=== PATIENT | female | born 1945 | race African-American/Black ===

== ENCOUNTER 2020-06-17 12:21 | Outpatient (REF) | payer MEDICARE, SELFPAY ==
--- NOTE | ~2020-06-17 | MM_ITS ---
EXAMINATION: MM SCREENING DIGITAL BREAST TOMOSYNTHESIS, BILATERAL CLINICAL INFORMATION: Screening. Asymptomatic. The lifetime risk of breast cancer based on the Tyrer-Cuzick Model is 2%. COMPARISON: Mammography: 03/15/2019, 11/24/2017, 10/25/2016 TECHNIQUE: Digital breast tomosynthesis is performed in both the craniocaudal and mediolateral oblique views along with computer-aided detection (CAD). Synthesized 2D images are generated from the tomosynthesis. FINDINGS: There are scattered areas of fibroglandular density (ACR BI-RADS breast composition Category b). There are no significant masses, abnormal calcifications, or other abnormalities. Probable intramammary nodes outer quadrants are stable from prior studies. There are bilateral vascular calcifications. No significant changes from prior exams. MM/MM tomosynthesis screening BI IMPRESSION: No mammographic evidence of malignancy. ASSESSMENT: BI-RADS 2: Benign RECOMMENDATION: Routine annual mammography screening. This patient's information was entered into a reminder system with a target due date for their next mammogram.
== END 2020-06-17 12:22 | disposition home or self-care (01) ==
LOC: HO.MAMMO 12:21
PROVIDERS: PCP Internal Medicine Geriatric Medicine; Visit Provider Internal Medicine Geriatric Medicine
DX: Z12.31 Encounter for screening mammogram for malignant neoplasm of breast (principal)
CPT/HCPCS: 77063; 77067

== ENCOUNTER 2020-10-11 11:09 | Outpatient (REF) | payer MEDICARE, SELFPAY ==
--- NOTE | 2020-10-12 07:53 | MHC.AU.ANO ---
Adult Audiological Evaluation Date of Visit: 10/11/20 Engineering Programmer Used: Citizen Of [place]- In Person Reason for Appointment: Audiologic evaluation due to long-standing hearing loss, right ear greater than left. Mary reports she developed perforated tympanic membrane(s) and ear infections as a child. She was fit with binaural hearing aids by Advertising Sales Consultant Maikel Ward several years ago but experienced difficulty using them. Mary is experiencing significant communication difficulties due to her significant hearing loss. Does patient feel they have a hearing loss?: Yes If Yes, Which Ear?: Both Ears Has hearing been tested previously?: Yes Previous Hearing Test Results: Results are not available for review Hearing Handicap Inventory: HHIE SCORE: 40 Based on HHIE score, patient has: Severe perceived hearing handicap Ear History: Ear Infections in Childhood: Both Ears Ear used on the phone: Left Ear History of occupational noise exposure?: No History: History: No Medical History: Medical History: Diabetes, High Blood Pressure Medication List: Quetiapine, Trulicity, Metformin, Aspirin, Docusate Sodium Otoscopy: Right Ear: Unremarkable Left Ear: Unremarkable Tympanometry: Tympanometry performed due to: To assess integrity of the middle ear system Right Ear: Non-compliant Middle Ear System (Type B) Left Ear: Non-compliant Middle Ear System (Type B) Otoacoustic Emissions Frequency Range Used: Right Ear Results: Not performed at today's visit. Left Ear Results: Not performed at today's visit. Hearing Evaluation: Transducer(s) Used: Insert Earphones Bone Conduction Method: Conventional Audiometry Stimuli Used: Pure Tones Right Ear: Description of Hearing: Severe mixed hearing loss at 250 Hz, rising to moderate loss at 1000 Hz, dropping to a severe loss at 8000 Hz Left Ear: Description of Hearing: Moderately-severe mixed hearing loss at 250 Hz, rising to mild loss at 4000 Hz, dropping to a severe loss at 8000 Hz Speech Recognition Threshold (SRT): Method Used: Monitored Live Voice Stimuli Used: Spondee Words Right Ear: 35 dB HL Left Ear: 30 dB HL Word Discrimination: Method: Recorded Lists Word Lists Used: Lista Bisil?bica (Citizen Of [place]) Right Ear: 88% at 75 dB HL Left Ear: 88% at 75 dB HL Interpretation of Results: With this asymmetric mild/moderate to severe mixed hearing loss with middle ear dysfunction, Mary is unable to understand conversational speech. Binaural hearing aids are needed to facilitate communication. Recommendations: Trial with amplification is recommended. Medical clearance from a physician is required before fitting. Hearing aid(s) will be ordered after approval is received. Audiological re-evaluation in one year. Will send a reminder card. Diagnosis: Primary Diagnosis: H90.6 Mixed Hearing Loss, Bilateral Secondary Diagnosis: H69.93 Unspecified Eustachian Tube Dysfunction, Bilateral Services Performed: Comprehensive Audiological Evaluation (CPT 99719) Tympanometry (CPT 61168) Signature: Provider: Demian Saez, CCC-A
--- NOTE | 2020-10-12 07:56 | MHC.AU.MED ---
Medical Clearance for Hearing Instrumentation Date: 10/12/20 Patient Name: Mary Levi Date of : 1945 Primary Care Provider: Referring Provider: Salomón Manzo MD We have seen your patient on 10/11/20 and have determined that they are a candidate for amplification (See accompanying report). Specifically, they would benefit from: Hearing aid use in both ears There is a statute that addresses Medical Evaluation Requirements prior to fitting a patient with a hearing aid. According to [place] statute 265 CMR:6.03(1), (a) General. Except as provided in 265 CMR 6.03(1)(b), a hearing dog trainer shall not sell a hearing aid unless the prospective user has presented to the hearing dog trainer a written statement signed by a licensed physician that states that the patient's hearing loss has been medically evaluated and the patient may be considered a candidate for a hearing aid. The medical evaluation must have taken place within the preceding six months. Please note: Due to the [place] Statute referenced above, we cannot accept a signature other than that of a licensed physician. CAMPAIGN DEVELOPER and PA signatures cannot be accepted. I am in agreement with the above recommendation. There is no medical contraindication for hearing instrumentation. Physician Signature Date Physician Name (Printed)
--- NOTE | 2020-10-12 08:00 | MHC.AU.HAS ---
Hearing Aid Evaluation Date of Visit: 10/11/20 Dovetailer Used: [place]- In Person Historical Information: Description of Hearing: Asymmetric mild to severe mixed hearing loss, right ear greater than left with bilateral middle ear dysfunction Current personal amplification information, if applicable: None Summary: Binaural hearing aids are medically necessary to facilitate communication. Rechargeable in-the-ear aids are recommended due to patient's manual dexterity difficulties. Hearing Aid Prescription: Based on the individual?s shared listening needs, communication environments, dexterity, desire for connectivity, and personal preferences, the following prescription for amplification has been made: Right ear: Pipe Bowls Paint Trimmer: qunb Model: Nicanor 1600 ITC-R Battery Size: Rechargeable Color: Black Left ear: Pipe Bowls Paint Trimmer: qunb Model: Nicanor 1600 ITC-R Battery Size: Rechargeable Color: Black Plan of Care: Patient wishes to purchase hearing aids as prescribed Action Taken/Action Needed: Earmold Impressions Taken. In HOLD drawer Prior authorization to be requested Medical Clearance to be requested from PCP/ENT Hearing Fitting to be scheduled when materials arrive Primary Diagnosis: H90.6 Mixed Hearing Loss, Bilateral Secondary Diagnosis: H69.93 Unspecified Eustachian Tube Dysfunction, Bilateral Signature: Provider: Demian Saez, CCC-A
== END 2020-10-11 11:10 | disposition home or self-care (01) ==
LOC: HO.SH 11:09
PROVIDERS: Visit Provider Internal Medicine Geriatric Medicine
DX: H91.93 Unspecified hearing loss, bilateral (principal)
CPT/HCPCS: 92557; 92567; 92591; V5275

== ENCOUNTER 2020-11-10 09:04 | Outpatient (REF) | payer MEDICARE, SELFPAY | END 2020-11-10 09:05 | disposition home or self-care (01) | LOC: HO.HAP 09:04 | PROVIDERS: Visit Provider Internal Medicine Geriatric Medicine | DX: Z13.89 Encounter for screening for other disorder (principal) ==

== ENCOUNTER 2020-12-20 09:20 | Outpatient (REF) | payer MEDICARE, SELFPAY | END 2020-12-20 09:21 | disposition home or self-care (01) | LOC: HO.HAP 09:20 | PROVIDERS: Visit Provider Internal Medicine Geriatric Medicine | DX: Z46.1 Encounter for fitting and adjustment of hearing aid (principal); H90.3 Sensorineural hearing loss, bilateral | CPT/HCPCS: V5011; V5020; V5160; V5260 ==

== ENCOUNTER 2021-01-08 09:34 | Outpatient (REF) | payer MEDICARE, SELFPAY | END 2021-01-08 09:35 | disposition home or self-care (01) | LOC: HO.HAP 09:34 | PROVIDERS: Visit Provider Internal Medicine Geriatric Medicine | DX: Z13.89 Encounter for screening for other disorder (principal) ==

== ENCOUNTER 2021-07-25 13:32 | Outpatient (REF) | payer MEDICARE, SELFPAY ==
--- NOTE | ~2021-07-25 | MM_ITS ---
EXAMINATION: MM SCREENING DIGITAL BREAST TOMOSYNTHESIS, BILATERAL CLINICAL INFORMATION: Screening. Asymptomatic. The lifetime risk of breast cancer based on the Tyrer-Cuzick Model is 2%. COMPARISON: Mammography: 06/17/2020, 03/15/2019, 11/24/2017 TECHNIQUE: Digital breast tomosynthesis is performed in both the craniocaudal and mediolateral oblique views along with computer-aided detection (CAD). Synthesized 2D images are generated from the tomosynthesis. Additional left MLO view is provided. FINDINGS: There are scattered areas of fibroglandular density (ACR BI-RADS breast composition Category b). Parenchymal pattern is similar to prior studies. Scattered fine nodularity and mammary nodes are similar to prior studies. There is no developing density or interval architectural abnormality. Scattered bilateral benign coarse and vascular calcifications are again seen. No significant changes. MM/MM tomosynthesis screening BI IMPRESSION: No mammographic evidence of malignancy. ASSESSMENT: BI-RADS 2: Benign RECOMMENDATION: Routine annual mammography screening. This patient's information was entered into a reminder system with a target due date for their next mammogram.
== END 2021-07-25 13:33 | disposition home or self-care (01) ==
LOC: HO.MAMMO 13:32
PROVIDERS: PCP Internal Medicine Geriatric Medicine; Visit Provider Internal Medicine Geriatric Medicine
DX: Z12.31 Encounter for screening mammogram for malignant neoplasm of breast (principal)
CPT/HCPCS: 77063; 77067

== ENCOUNTER 2021-11-19 09:08 | Outpatient (REF) | payer SELFPAY | END 2021-11-19 09:09 | disposition home or self-care (01) | LOC: HO.HAP 09:08 | PROVIDERS: Visit Provider Internal Medicine Geriatric Medicine | DX: Z13.89 Encounter for screening for other disorder (principal) ==

== ENCOUNTER 2021-11-30 12:04 | Outpatient (REF) | payer OTHER, SELFPAY ==
--- NOTE | ~2021-11-30 | XR_ITS ---
EXAMINATION: XR KNEE, RIGHT CLINICAL INFORMATION: Pain. COMPARISON: Radiographs dated 02/28/2019. TECHNIQUE: Frontal, lateral and axial views of the right knee are submitted. FINDINGS: Bony alignment and mineralization are normal. There is very mild asymmetric narrowing of the medial joint space compartment. The lateral and patellofemoral joint space compartments are well-maintained. There is very mild tricompartment peripheral osteophyte formation. No fracture or dislocation is seen. There is a small right knee joint effusion. A small enthesophyte arises from the upper pole of the patella, at the quadriceps tendon insertion. There is no foreign body. XR/XR knee RT 3V IMPRESSION: 1. 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 2. There is a small right knee joint effusion.
== END 2021-11-30 12:05 | disposition home or self-care (01) ==
LOC: HO.XRAY 12:04
PROVIDERS: PCP Internal Medicine Geriatric Medicine; Visit Provider Internal Medicine Geriatric Medicine
DX: M25.561 Pain in right knee (principal)
CPT/HCPCS: 73562

== ENCOUNTER 2021-12-06 14:16 | Outpatient (REF) | payer SELFPAY | END 2021-12-06 14:17 | disposition home or self-care (01) | LOC: HO.HAP 14:16 | PROVIDERS: Visit Provider Internal Medicine Geriatric Medicine | DX: Z13.89 Encounter for screening for other disorder (principal) ==

== ENCOUNTER 2021-12-24 07:46 | Outpatient (REF) | payer OTHER, SELFPAY ==
--- NOTE | ~2021-12-24 | CT_ITS ---
EXAMINATION: CT HEAD WITHOUT CONTRAST CLINICAL INFORMATION: Amnesia COMPARISON: Previous head CT December 2015 TECHNIQUE: Contiguous axial imaging was performed from the skull base to vertex without intravenous administration of contrast. This CT examination was performed using dose optimization techniques as appropriate, variously including the following: *Automated exposure control *Adjustment of mA and/or kV according to patient size (this includes techniques or standardized protocols for targeted exams where dose is matched to indication/reason for exam; i.e. extremities or head) *Use of iterative reconstruction technique DLP: 689 mGy-cm FINDINGS: There is no evidence of acute intracranial hemorrhage or territorial infarction. No abnormal mass effect or midline shift is seen. Avery to white matter differentiation is well preserved. No extra-axial fluid collections are identified. The ventricles are normal in size. There is no abnormal attenuation within the brain parenchyma. The osseous structures and soft tissues are normal. There is soft tissue opacification of the bilateral mastoid air cells that is unchanged. There is some soft tissue opacification of the left middle ear that is increased from 2016 exam. The visualized portions of the paranasal sinuses are well aerated. CT/CT head/brain wo con IMPRESSION: No acute intracranial findings. Soft tissue opacification of the bilateral mastoid air cells and left middle ear.
== END 2021-12-24 07:47 | disposition home or self-care (01) ==
LOC: HO.CT 07:46
PROVIDERS: PCP Internal Medicine Geriatric Medicine; Visit Provider Internal Medicine Geriatric Medicine
DX: R41.3 Other amnesia (principal)
CPT/HCPCS: 70450

== ENCOUNTER → 2022-01-22 09:01 | Outpatient (BNVA) | payer OTHER, SELFPAY | PROVIDERS: PCP Internal Medicine Geriatric Medicine; Visit Provider Physician Assistant | DX: M17.11 Unilateral primary osteoarthritis, right knee (principal); E11.9 Type 2 diabetes mellitus without complications | CPT/HCPCS: 20610; 99212; J1020 ==

== ENCOUNTER 2022-06-21 11:46 | Emergency (ER) | payer OTHER, SELFPAY ==
[2022-06-21 12:10] VITALS: BP 106/58; PULSE 78; RESP 18; TEMP 37.3; O2SAT 96; BMI 33.5
--- NOTE | 2022-06-21 12:11 | ED_ITS ---
HPI - Female Genitourinary General Chief complaint: Skin/Abscess/Foreign Body <LAZARO Hendrix - Last Filed: 06/21/22 12:12> Stated complaint: ? Abscess Vag Area <LAZARO Hendrix - Last Filed: 06/21/22 12:12> Time Seen by Provider: 06/21/22 15:03 <LAZARO Hendrix - Last Filed: 06/21/22 12:12> Source: patient and family <LAZARO Gonzáles - Last Filed: 06/21/22 16:08> Mode of arrival: ambulatory <LAZARO Gonzáles Last Filed: 06/21/22 16:08> History of Present Illness HPI Narrative: 76-year-old female with a past medical history of diabetes, hypertension, presenting to ED complaining of cyst to right groin/vaginal area x2 days. Reports area is increasing in size and becoming increasingly painful. Reports subjective fever yesterday. Denies drainage from area, fever/chills, dysuria / hematuria, abdominal pain, rectal pain <LAZARO Gonzáles Last Filed: 06/21/22 16:08> Related Data Home medications: Home Medications Medication Instructions Recorded Confirmed acetaminophen 500 mg tablet 500 mg PO Q8H PRN pain 01/22/22 amlodipine 10 mg tablet 10 mg PO BEDTIME 01/22/22 aspirin 81 mg tablet,delayed 81 mg PO QAM 01/22/22 release cholecalciferol (vitamin D3) 25 25 mcg PO QAM 01/22/22 mcg (1,000 unit) tablet dulaglutide 4.5 mg/0.5 mL mg subcut QWEEK 01/22/22 subcutaneous pen injector (Trulicity) metformin 500 mg tablet,extended 1,000 mg PO QAM 01/22/22 release 24 hr paroxetine HCl 20 mg tablet 20 mg PO QAM 01/22/22 quetiapine 25 mg tablet 0 mg PO 01/22/22 Previous Rx's Medication Instructions Recorded cephalexin 500 mg capsule 500 mg PO QID 7 days #28 caps 06/21/22 doxycycline hyclate 100 mg tablet 100 mg PO BID 7 days #14 tabs 06/21/22 <LAZARO Hendrix Last Filed: 06/21/22 12:12> Allergies/Adverse reactions: Allergies Allergy/AdvReac Type Severity Reaction Status Date / Time Crustaceans Allergy Severe ANAPHYLAXIS Uncoded 01/27/20 16:52 <LAZARO Hendrix Last Filed: 06/21/22 12:12> Review of Systems Review of Systems: Constitutional: No Fever, No Chills ENT/Mouth: No Ear Pain, No Nasal Congestion, No sore throat, No Rhinorrhea, No Swallowing Difficulty Cardiovascular: No Chest Pain, No SOB Respiratory: No Cough, No Sputum Gastrointestinal: No Nausea, No Vomiting, No Diarrhea, No Constipation, No Abdominal pain Genitourinary: No Dysuria, No Urinary Frequency, No Hematuria, No Urinary Incontinence/retention Musculoskeletal: No joint pain, No Myalgias, No Joint Swelling Skin: +Skin Lesions, No rash Neuro: No Weakness <LAZARO Gonzáles Last Filed: 06/21/22 16:08> Yes all other systems are reviewed and are negative <LAZARO Gonzáles Last Filed: 06/21/22 16:08> Constitutional: Constitutional: Reports as per HPI <LAZARO Gonzáles - Last Filed: 06/21/22 16:08> [facility] Past Medical History Attestation statement: The following information was validated with the patient. <LAZARO Gonzáles Last Filed: 06/21/22 16:08> Medical History: Medical History Diabetes Hypertension <LAZARO Hendrix Last Filed: 06/21/22 12:12> Social History Social History: Social History Patient Tobacco Use Status: Never used Tobacco Advance Directives: No Advance Directives Information Provided: Yes <LAZARO Hendrix Last Filed: 06/21/22 12:12> Physical Exam Vital Signs: Vital Signs: Last Vital Signs Temp 99.2 F 06/21/22 12:10 Pulse 78 06/21/22 12:10 Resp 18 06/21/22 12:10 BP 106/58 L 06/21/22 12:10 Pulse Ox 96 06/21/22 12:10 O2 Del Method 06/21/22 12:10 BMI result Body Mass Index 33.5 <LAZARO Hendrix - Last Filed: 06/21/22 12:12> Vital Signs: Last Vital Signs Temp 99.2 F 06/21/22 12:10 Pulse 78 06/21/22 12:10 Resp 18 06/21/22 12:10 BP 106/58 L 06/21/22 12:10 Pulse Ox 96 06/21/22 12:10 O2 Del Method 06/21/22 12:10 BMI result Body Mass Index 33.5 <LAZARO Gonzáles - Last Filed: 06/21/22 16:08> Const: General: cooperative, healthy appearing and no acute distress <LAZRAO Gonzáles - Last Filed: 06/21/22 16:08> Orientation/consciousness: patient oriented x3 <LAZARO Gonzáles - Last Filed: 06/21/22 16:08> Limitations: no limitations <LAZARO Gonzáles - Last Filed: 06/21/22 16:08> HEENT: Head: Yes normal to inspection and Yes atraumatic <LAZARO Gonzáles - Last Filed: 06/21/22 16:08> Ears: hearing grossly normal bilaterally <LAZARO Gonzáles - Last Filed: 06/21/22 16:08> General nose exam: Normal external nose present <LAZARO Gonzáles - Last Filed: 06/21/22 16:08> Face and sinus: Yes normal facial exam <LAZARO Gonzáles - Last Filed: 06/21/22 16:08> Eyes: General: appearance normal, both eyes and all related structures <LAZARO Gonzáles - Last Filed: 06/21/22 16:08> EOM: EOMs intact bilaterally <LAZARO Gonzáles - Last Filed: 06/21/22 16:08> Neck: Neck: Yes normal visual inspection and Yes no meningeal signs <LAZARO Gonzáles - Last Filed: 06/21/22 16:08> Resp: Effort & Inspection: normal respiratory effort and no respiratory distress <LAZARO Gonzáles - Last Filed: 06/21/22 16:08> Cardio: Rate: regular rate <LAZARO Gonzáles - Last Filed: 06/21/22 16:08> GI: Inspection: Yes normal to inspection <LAZARO Gonzáles - Last Filed: 06/21/22 16:08> Palpation (GI): Soft to palpation, nontender, no guarding and not rigid <LAZARO Gonzáles - Last Filed: 06/21/22 16:08> Skin: Other: +indurated abscess with central fluctuance noted to R groin/inguinal area. No erythema/warmth or steaking <LAZARO Gonzáles - Last Filed: 06/21/22 16:08> Rashes: no rashes <LAZARO Gonzáles - Last Filed: 06/21/22 16:08> Wounds: no wounds <LAZARO Gonzáles - Last Filed: 06/21/22 16:08> Neuro: General: patient oriented x3, tone normal and no meningeal signs <LAZARO Gonzáles - Last Filed: 06/21/22 16:08> Gait exam (Neuro): Normal gait present <LAZARO Gonzáles - Last Filed: 06/21/22 16:08> Extrem: General: Yes normal to inspection <LAZARO Gonzáles - Last Filed: 06/21/22 16:08> Course Course Course Narrative: RME-12:15PM - 76yoF presenting to the ER with complaints of vaginal abscess that she noticed 2 days ago. Reports she has never had this in the past. Reports subjective fevers, chills. Denies any measured fevers, nausea/vomiting, urinary symptoms or any other symptoms complaints or concerns at the time. Plan: UA ordered at this time. Patient will be sent to [facility] for further evaluation and treatment. <Sol Russell PA - Last Filed: 06/21/22 12:12> RME-12:15PM - 76yoF presenting to the ER with complaints of vaginal abscess that she noticed 2 days ago. Reports she has never had this in the past. Reports subjective fevers, chills. Denies any measured fevers, nausea/vomiting, urinary symptoms or any other symptoms complaints or concerns at the time. Plan: UA ordered at this time. Patient will be sent to [facility] for further evaluation and treatment. -UA negative <LAZARO Gonzáles - Last Filed: 06/21/22 16:08> Medications Administered Discontinued Medications Generic Name Dose Route Start Last Admin Trade Name Freq PRN Reason Stop Dose Admin Lidocaine HCl 5 ml 06/21/22 15:26 06/21/22 15:34 Lidocaine Hcl 1 % Mpf 5 Ml Vial INFILTRATI 06/21/22 15:27 5 ml ONCE ONE Administration <LAZARO Hendrix - Last Filed: 06/21/22 12:12> Medications Administered Discontinued Medications Generic Name Dose Route Start Last Admin Trade Name Freq PRN Reason Stop Dose Admin Lidocaine HCl 5 ml 06/21/22 15:26 06/21/22 15:34 Lidocaine Hcl 1 % Mpf 5 Ml Vial INFILTRATI 06/21/22 15:27 5 ml ONCE ONE Administration <LAZARO Gonzáles - Last Filed: 06/21/22 16:08> Medical Decision Making Medical Decision Making [facility] Narrative: 76-year-old female with a past medical history of diabetes, hypertension, presenting to ED complaining of cyst to right groin/vaginal area x2 days. on exam vital signs stable, NAD, nontoxic appearing, indurated and fluctuant abscess noted to right groin/ inguinal area. No surrounding cellulitis/ warmth or evidence of Quentin's gangrene. No perianal or vaginal involvement plan: I &D Results discussed with patient including worrisome signs and symptoms and strict return precautions, and when to return to the emergency department. They verbalized understanding and feel safe for discharge at this time. <LAZARO Gonzáles - Last Filed: 06/21/22 16:08> Differential Diagnosis Differential Diagnoses: The differential diagnosis associated with the presentation includes <LAZARO Gonzáles - Last Filed: 06/21/22 16:08> as above <LAZARO Gonzáles - Last Filed: 06/21/22 16:08> Lab Data [facility] Lab Attestation statement: I reviewed the patient's lab results. <LAZARO Gonzáles - Last Filed: 06/21/22 16:08> Labs: Lab Results 06/21/22 06/21/22 Range/Units 12:19 15:45 POC Glucose 268 H (60-115) mg/dL Urine Color Dark Yellow Urine Appearance Clear Urine pH 6.0 (5.0-9.0) Ur Specific [address] >= 1.030 H (1.005-1.025) Urine Protein 30 (1+) H (Neg-Trace) mg/dL Urine Glucose (UA) 500 H (Negative) mg/dL Urine Ketones Trace (Negative) mg/dL Urine Blood Negative (Negative) Urine Nitrite Negative (Negative) Ur Leukocyte Esterase Trace H (Negative) Urine RBC 3-5 H (0-2) /HPF Urine WBC 0-5 (0-5) /HPF Ur Squamous Epith Cells 3-5 (0-2) /HPF Urine Bacteria None Seen (None Seen) Hyaline Casts 0-2 (0-2) /LPF <LAZARO Hendrix Last Filed: 06/21/22 12:12> Lab Results 06/21/22 06/21/22 Range/Units 12:19 15:45 POC Glucose 268 H (60-115) mg/dL Urine Color Dark Yellow Urine Appearance Clear Urine pH 6.0 (5.0-9.0) Ur Specific [address] >= 1.030 H (1.005-1.025) Urine Protein 30 (1+) H (Neg-Trace) mg/dL Urine Glucose (UA) 500 H (Negative) mg/dL Urine Ketones Trace (Negative) mg/dL Urine Blood Negative (Negative) Urine Nitrite Negative (Negative) Ur Leukocyte Esterase Trace H (Negative) Urine RBC 3-5 H (0-2) /HPF Urine WBC 0-5 (0-5) /HPF Ur Squamous Epith Cells 3-5 (0-2) /HPF Urine Bacteria None Seen (None Seen) Hyaline Casts 0-2 (0-2) /LPF <LAZARO Gonzáles Last Filed: 06/21/22 16:08> Prescription Management I considered prescription management with: Antibiotic <LAZARO Gonzáles Last Filed: 06/21/22 16:08> Procedures Abscess I/D Site: other <LAZARO Gonzáles Last Filed: 06/21/22 16:08> Side (if applicable): right <LAZARO Gonzáles Last Filed: 06/21/22 16:08> Local Anesthetic: lidocaine 1% <LAZARO Gonzáles Last Filed: 06/21/22 16:08> Amount of anesthesia used (mL): 4 <LAZARO Gonzáles Last Filed: 06/21/22 16:08> Technique: incised with blade <LAZARO Gonzáles Last Filed: 06/21/22 16:08> Sent for culture/gram staining?: No <LAZARO Gonzáles Last Filed: 06/21/22 16:08> Packing used?: iodoform <LAZARO Gonzáles Last Filed: 06/21/22 16:08> Discharge Plan Discharge Clinical Impression: Abscess <LAZARO Hendrix Last Filed: 06/21/22 12:12> Patient Disposition: Home, Self-Care <LAZARO Hendrix Last Filed: 06/21/22 12:12> Instructions: Abscess (ED), Abscess Follow-up (ED) <LAZARO Hendrix Last Filed: 06/21/22 12:12> Additional Instructions: your abscess was opened and drained in the ED today. Packing was placed, please return in 2 days for packing removal/wound recheck if area begins to worsen, become more inflamed/ red or you fever/inability to urinate or have a bowel movement return to the emergency department Keflex and doxycycline or antibiotics please take as prescribed. galo absceso fue abierto y drenado en el servicio de urgencias hoy. Se coloc? el empaque, devu?lvalo en 2 d?as para retirar el empaque/volver a revisar la herida si el ?nba comienza a empeorar, se inflama m?s/enrojece o tiene fiebre/incapacidad para orinar o defecar, regrese al departamento de emergencias Keflex y doxiciclina o antibi?ticos, t?melos seg?n lo prescrito. <LAZARO Hendrix Last Filed: 06/21/22 12:12> Prescriptions: New cephalexin 500 mg capsule 500 mg PO QID 7 Days Qty: 28 0RF doxycycline hyclate 100 mg tablet 100 mg PO BID 7 Days Qty: 14 0RF No Action Trulicity 4.5 mg/0.5 mL pen injector subcut QWEEK cholecalciferol (vitamin D3) 25 mcg (1,000 unit) tablet 25 mcg PO QAM amlodipine 10 mg tablet 10 mg PO BEDTIME quetiapine 25 mg tablet 0 mg PO paroxetine HCl 20 mg tablet 20 mg PO QAM metformin 500 mg tablet extended release 24 hr 1,000 mg PO QAM aspirin 81 mg tablet,delayed release (DR/EC) 81 mg PO QAM acetaminophen 500 mg tablet 500 mg PO Q8H PRN (Reason: pain) <LAZARO Hendrix - Last Filed: 06/21/22 12:12> Referrals: ED Physician,Jose [Emergency Provider] - 2 days ( 2 days for packing removal) Name,MD Salomón [Primary Care Provider] - 2 days ( For packing removal) <LAZARO Hendrix - Last Filed: 06/21/22 12:12> Print Language: Com[place] <LAZARO Hendrix - Last Filed: 06/21/22 12:12>
[2022-06-21 12:34] LABS: Appearance Urine Clear; Color Urine Dark Yellow; Glucose Urine UA 500 mg/dL (Negative); Leukocyte Esterase Urine Trace (Negative); Nitrite Urine Negative (Negative); Specific Gravity - Urine >= 1.030 (1.005-1.025); UMIC TRIGGER UACC YES; Urine Blood Negative (Negative); Urine Ketones Trace mg/dL (Negative); Urine Protein 30 (1+) mg/dL (Neg-Trace)
[2022-06-21 12:39] LABS: Bacteria Urine None Seen (None Seen); Hyaline Casts Urine 0-2 /LPF (0-2); WBC Urine 0-5 /HPF (0-5)
[2022-06-21] MEDS: Lidocaine HCl 1 % MPF 5 ML VIAL INFILTRATI (15:34)
[2022-06-21 15:57] LABS: Glucose, Whole Blood 268 mg/dL (60-115)
== END 2022-06-21 16:13 | disposition home or self-care (01) ==
PROVIDERS: Physician Assistant Medical; Emergency Provider Emergency Medicine; PCP Internal Medicine Geriatric Medicine
DX: L02.214 Cutaneous abscess of groin (principal)
CPT/HCPCS: 10060; 81001; 82947; 99282; 99284

== ENCOUNTER 2022-06-23 12:57 | Emergency (ER) | payer OTHER, SELFPAY ==
[2022-06-23 13:03] VITALS: BP 151/53; PULSE 69; RESP 18; TEMP 36.6; O2SAT 98; BMI 33.6
--- NOTE | 2022-06-23 13:03 | ED.RECABL ---
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 Patient states that she had an abscess incised and drained with packing placed and she is here to get packing removed. Patient denies any dizziness, lightheadedness, abdominal pain, nausea, vomiting, fever, chills, blurry vision, double vision, loss of vision, chest pain, difficulty breathing, shortness of breath, back pain, night sweats, pain with urination, increased urinary frequency, increased urinary urgency, blood in her urine or stool, syncope or a near syncopal episode, recent trauma or falls, bowel incontinence, bladder incontinence, bowel retention, bladder retention, or any other complaints at this time. <LAZARO Garcia - Last Filed: 06/23/22 16:08> MD complaint: wound re-check <LAZARO Garcia - Last Filed: 06/23/22 16:08> Initial visit (ago): day(s) <LAZARO Garcia Last Filed: 06/23/22 16:08> Initial visit for: abscess <LAZARO Garcia Last Filed: 06/23/22 16:08> Associated symptoms: none <LAZARO Garcia Last Filed: 06/23/22 16:08> Related Data Home Medications: Home Medications Medication Instructions Recorded Confirmed acetaminophen 500 mg tablet 500 mg PO Q8H PRN pain 01/22/22 amlodipine 10 mg tablet 10 mg PO BEDTIME 01/22/22 aspirin 81 mg tablet,delayed 81 mg PO QAM 01/22/22 release cholecalciferol (vitamin D3) 25 25 mcg PO QAM 01/22/22 mcg (1,000 unit) tablet dulaglutide 4.5 mg/0.5 mL mg subcut QWEEK 01/22/22 subcutaneous pen injector (Trulicity) metformin 500 mg tablet,extended 1,000 mg PO QAM 01/22/22 release 24 hr paroxetine HCl 20 mg tablet 20 mg PO QAM 01/22/22 quetiapine 25 mg tablet 0 mg PO 01/22/22 Previous Rx's Medication Instructions Recorded cephalexin 500 mg capsule 500 mg PO QID 7 days #28 caps 06/21/22 doxycycline hyclate 100 mg tablet 100 mg PO BID 7 days #14 tabs 06/21/22 <LAZARO Hednrix - Last Filed: 06/23/22 13:04> Allergies/Adverse Reactions: Allergies Allergy/AdvReac Type Severity Reaction Status Date / Time Crustaceans Allergy Severe ANAPHYLAXIS Uncoded 06/23/22 13:03 <LAZARO Hendrix - Last Filed: 06/23/22 13:04> Review of Systems Constitutional: Constitutional: Reports no additional constitutional complaints, Denies chills, Denies fever(s) and Denies night sweats <LAZARO Garcia - Last Filed: 06/23/22 16:08> Eyes: Eyes: Reports no additional eye complaints, Denies blurry vision, Denies change in vision, Denies diplopia, Denies eye discharge, Denies loss of vision and Denies eye pain <LAZARO Garcia Last Filed: 06/23/22 16:08> ENT: Denies dizziness <LAZARO Garcia Last Filed: 06/23/22 16:08> Cardiovascular: Cardiovascular: Reports no additional cardiovascular complaints, Denies chest pain, Denies lightheadedness, Denies Loss of Consciousness and Denies dyspnea <LAZARO Garcia Last Filed: 06/23/22 16:08> Respiratory: Respiratory: Reports no additional respiratory complaints and Denies dyspnea <LAZARO Garcia Last Filed: 06/23/22 16:08> Gastrointestinal: Gastrointestinal: Reports no additional gastrointestinal complaints, Denies abdominal pain, Denies melena, Denies hematochezia, Denies change in bowel habits and Denies change in stool character <LAZARO Garcia - Last Filed: 06/23/22 16:08> Genitourinary: Genitourinary: Denies hematuria, Denies urinary frequency, Denies dysuria, Denies urinary incontinence, Denies urinary hesitancy and Denies urinary urgency <LAZARO Garcia - Last Filed: 06/23/22 16:08> Comments: abscess with packing present in the right groin <LAZARO Garcia - Last Filed: 06/23/22 16:08> Musculoskeletal: Musculoskeletal: Reports no additional musculoskeletal complaints, Denies numbness and Denies tingling <LAZARO Garcia - Last Filed: 06/23/22 16:08> Neurologic: Denies dizziness, Denies loss of vision, Denies numbness and Denies tingling <LAZARO Garcia - Last Filed: 06/23/22 16:08> Psychiatric: Psychiatric: Reports no additional psychiatric complaints <LAZARO Garcia - Last Filed: 06/23/22 16:08> Endocrine: Endocrine: Reports no additional endocrine complaints <LAZARO Garcia - Last Filed: 06/23/22 16:08> Hematologic/Lymphatic: Hematologic/Lymphatic: Reports no additional hematologic/lymphatic complaints <LAZARO Garcia - Last Filed: 06/23/22 16:08> Allergic/Immunologic: Allergic/Immunologic: Reports no additional allergic/immunologic complaints <LAZARO Garcia - Last Filed: 06/23/22 16:08> [facility] Past Medical History Attestation statement: The following information was validated with the patient. <LAZARO Garcia - Last Filed: 06/23/22 16:08> Source: old records reviewed and nursing notes reviewed <LAZARO Garcia - Last Filed: 06/23/22 16:08> Medical History: Medical History Diabetes Hypertension <LAZARO Hendrix - Last Filed: 06/23/22 13:04> Social History Social History: Social History Patient Tobacco Use Status: Never used Tobacco Advance Directives: No Advance Directives Information Provided: Yes <LAZARO Hendrix - Last Filed: 06/23/22 13:04> Physical Exam Vital Signs: Vital Signs: Last Vital Signs Temp 98 F 06/23/22 13:03 Pulse 69 06/23/22 13:03 Resp 18 06/23/22 13:03 BP 151/53 H 06/23/22 13:03 Pulse Ox 98 06/23/22 13:03 O2 Del Method 06/23/22 13:03 BMI result Body Mass Index 33.6 <LAZARO Hendrix - Last Filed: 06/23/22 13:04> Vital Signs: Last Vital Signs Temp 98 F 06/23/22 13:03 Pulse 69 06/23/22 13:03 Resp 18 06/23/22 13:03 BP 151/53 H 06/23/22 13:03 Pulse Ox 98 06/23/22 13:03 O2 Del Method 06/23/22 13:03 BMI result Body Mass Index 33.6 <LAZARO Garcia - Last Filed: 06/23/22 16:08> Const: General: cooperative, no acute distress, alert and awake <LAZARO Garcia - Last Filed: 06/23/22 16:08> Nutritional Appearance: well nourished <LAZARO Garcia - Last Filed: 06/23/22 16:08> Orientation/consciousness: patient oriented x3 <LAZARO Garcia Last Filed: 06/23/22 16:08> Limitations: no limitations <LAZARO Garcia Last Filed: 06/23/22 16:08> HEENT: Head: Yes normal to inspection and Yes atraumatic <LAZARO Garcia - Last Filed: 06/23/22 16:08> Ears: hearing grossly normal bilaterally and external ears normal <LAZARO Garcia Last Filed: 06/23/22 16:08> General nose exam: Normal external nose present, no nasal discharge noted and no epistaxis <LAZARO Garcia Last Filed: 06/23/22 16:08> Face and sinus: Yes normal facial exam, No abrasion and No laceration <LAZARO Garcia Last Filed: 06/23/22 16:08> Mouth: Normal oral and palatal mucosa present, no drooling and no muffled voice <Ana Lilly [place] - Last Filed: 06/23/22 16:08> Eyes: General: appearance normal, both eyes and all related structures <Ana Lilly [facility] Last Filed: 06/23/22 16:08> Periorbital: periorbital findings normal <Ana Lilly SC - Last Filed: 06/23/22 16:08> Eyelids: Yes eyelids normal <Ana Lilly SC - Last Filed: 06/23/22 16:08> Conjunctivae: conjunctivae normal <Ana Lilly SC - Last Filed: 06/23/22 16:08> Pupils: Equal, round and reactive pupils present <Ana Lilly [place] - Last Filed: 06/23/22 16:08> EOM: EOMs intact bilaterally <Ana Lilly SC - Last Filed: 06/23/22 16:08> Neck: Neck: Yes normal visual inspection, Yes full ROM and Yes no lymphadenopathy <Ana Lilly SC - Last Filed: 06/23/22 16:08> Chest: Chest palpation & inspection: normal inspection of the chest <Ana Lilly SC - Last Filed: 06/23/22 16:08> Resp: Effort & Inspection: normal respiratory effort and able to speak in complete sentences <Ana Lilly [facility] Last Filed: 06/23/22 16:08> Auscultation: clear to auscultation bilaterally <Ana Lilly SC - Last Filed: 06/23/22 16:08> Cardio: Rate: regular rate <Ana Lilly SC - Last Filed: 06/23/22 16:08> Rhythm: regular rhythm <Ana Lilly SC - Last Filed: 06/23/22 16:08> GI: Inspection: Yes normal to inspection <Ana Lilly SC - Last Filed: 06/23/22 16:08> : Other: abscess with packing in place to the right groin <Ana Baechanning SC - Last Filed: 06/23/22 16:08> Neuro: General: patient oriented x3 and moves all extremities <LAZARO Garcia - Last Filed: 06/23/22 16:08> Cranial nerves: Yes Equal, round and reactive pupils present <LAZARO Garcia - Last Filed: 06/23/22 16:08> Cognition (Neuro): normal cognition <LAZARO Garcia - Last Filed: 06/23/22 16:08> Motor exam (neuro): 5/5 motor strength present throughout <LAZARO Garcia - Last Filed: 06/23/22 16:08> Sensory Exam: Normal double simultaneous stimulation for sensation <LAZARO Garcia - Last Filed: 06/23/22 16:08> Coordination: dxwerz-wy-cvoy test normal <LAZARO Garcia - Last Filed: 06/23/22 16:08> Extrem: General: Yes normal to inspection, Yes full ROM and Yes capillary refill normal <LAZARO Garcia - Last Filed: 06/23/22 16:08> Psych: Appearance: grossly normal <LAZARO Garcia - Last Filed: 06/23/22 16:08> Mental Status: mental status grossly normal <LAZAOR Garcia - Last Filed: 06/23/22 16:08> Affect: normal affect <LAZARO Garcia - Last Filed: 06/23/22 16:08> Attitude: cooperative <LAZARO Garcia - Last Filed: 06/23/22 16:08> Thought process: Normal thought process present <LAZARO Garcia - Last Filed: 06/23/22 16:08> Thought content: Normal thought content present <LAZARO Garcia - Last Filed: 06/23/22 16:08> Insight: Good insight present (Psych) <LAZARO Garcia - Last Filed: 06/23/22 16:08> Course Course Course Narrative: RMShannan 13PM - 76yoF who is Dutch-speaking although granddaughter at bedside interpreting presenting with complaints of packing removal after she had the abscess to the right groin area that she had I&D by care on 06/21/2022. Denies any new symptoms related to this. Exam deferred to EM provider. <LAZARO Hendrix - Last Filed: 06/23/22 13:04> Medical Decision Making Medical Decision Making MDM Narrative: Patient is a 76 year old assigned female at with a history of DM presenting to the emergency department today for a packing removal. Patient's physical exam showed a previously opened abscess in the right groin with packing present. I explained my physical exam findings to the patient and the patient's granddaughter. I answered all questions asked by the patient and the patient's granddaughter. Patient's packing was removed, without incident. I stressed the importance of the patient taking her medication as prescribed. I stressed the importance of the patient following up with her primary care provider and a general surgeon. I stressed the importance of the patient returning to the emergency department immediately if her symptoms were to worsen or if she were to develop any dizziness, shortness of breath, difficulty breathing, chest pain, blurry vision, loss of vision, nausea, vomiting, abdominal pain, fever, chills, back pain, or any other complaints. Patient and the patient's granddaughter verbalized agreement and understanding with this treatment plan and discharge. <LAZARO Garcia - Last Filed: 06/23/22 16:08> Differential Diagnosis Differential Diagnoses: The differential diagnosis associated with the presentation includes <LAZARO Garcia - Last Filed: 06/23/22 16:08> packing removal <LAZARO Garcia - Last Filed: 06/23/22 16:08> Independent Historian Clinical information obtained from an independent historian. History obtained from or confirmed by: Other (patient's granddaughter) <LAZARO Garcia Last Filed: 06/23/22 16:08> Procedures Procedure Narrative Procedure Narrative: Packing removed from previously opened right groin abscess. <LAZARO Garcia Last Filed: 06/23/22 16:08> Discharge Plan Discharge Clinical Impression: Abscess <LAZARO Hendrix Last Filed: 06/23/22 13:04> Patient Disposition: Home, Self-Care <LAZARO Hendrix Last Filed: 06/23/22 13:04> Instructions: Abscess Follow-up (ED) <LAZARO Hendrix - Last Filed: 06/23/22 13:04> Additional Instructions: Follow up with your primary care provider. Return to the emergency department immediately if your symptoms worsen or if you develop any dizziness, shortness of breath, difficulty breathing, chest pain, blurry vision, loss of vision, nausea, vomiting, abdominal pain, fever, chills, back pain, or any other complaints. Eros un seguimiento con galo proveedor de atenci?n primaria. Regrese a la daniel de emergencias de inmediato si marilyn s?ntomas empeoran o si presenta mareos, dificultad para respirar, dolor de pecho, visi?n borrosa, p?rdida de la visi?n, n?useas, v?mitos, dolor abdominal, fiebre, escalofr?os, dolor de espalda o cualquier otras quejas. <LAZARO Hendrix - Last Filed: 06/23/22 13:04> Prescriptions: No Action cephalexin 500 mg capsule 500 mg PO QID 7 Days Qty: 28 0RF doxycycline hyclate 100 mg tablet 100 mg PO BID 7 Days Qty: 14 0RF Trulicity 4.5 mg/0.5 mL pen injector subcut QWEEK cholecalciferol (vitamin D3) 25 mcg (1,000 unit) tablet 25 mcg PO QAM amlodipine 10 mg tablet 10 mg PO BEDTIME quetiapine 25 mg tablet 0 mg PO paroxetine HCl 20 mg tablet 20 mg PO QAM metformin 500 mg tablet extended release 24 hr 1,000 mg PO QAM aspirin 81 mg tablet,delayed release (DR/EC) 81 mg PO QAM acetaminophen 500 mg tablet 500 mg PO Q8H PRN (Reason: pain) <LAZARO Hendrix - Last Filed: 06/23/22 13:04> Referrals: [facility] [place] General Surgeons [Provider Group] (Call to establish and follow up with a general surgeon. Llame para establecer y hacer un seguimiento con un cirujano general.) Name,MD Salomón [Primary Care Provider] - <LAZARO Hendrix - Last Filed: 06/23/22 13:04> Interventions: ED Discharge Assessment Last Done: 06/23/22 14:24 <LAZARO Hendrix - Last Filed: 06/23/22 13:04> Discharge Date/Time: 06/23/22 14:24 <LAZARO Hendrix - Last Filed: 06/23/22 13:04> Print Language: Dutch <LAZARO Hendrix - Last Filed: 06/23/22 13:04>
== END 2022-06-23 14:24 | disposition home or self-care (01) ==
PROVIDERS: Emergency Provider Emergency Medicine Emergency Medical Services; PCP Internal Medicine Geriatric Medicine
DX: Z48.01 Encounter for change or removal of surgical wound dressing (principal); Z79.899 Other long term (current) drug therapy
CPT/HCPCS: 99282

== ENCOUNTER 2022-07-31 13:16 | Outpatient (REF) | payer OTHER, SELFPAY ==
--- NOTE | ~2022-07-31 | MM_ITS ---
EXAMINATION: MM SCREENING DIGITAL BREAST TOMOSYNTHESIS, BILATERAL CLINICAL INFORMATION: Screening. Asymptomatic. The lifetime risk of breast cancer based on the Tyrer-Cuzick Model is 2%. COMPARISON: Mammography: 07/25/2021, 06/17/2020, 03/15/2019 TECHNIQUE: Digital breast tomosynthesis is performed in both the craniocaudal and mediolateral oblique views along with computer-aided detection (CAD). Synthesized 2D images are generated from the tomosynthesis. FINDINGS: There are scattered areas of fibroglandular density (ACR BI-RADS breast composition Category b). There are no significant masses, abnormal calcifications, or other abnormalities. Parenchymal pattern is similar to prior studies. There is no developing density or architectural abnormality. Scattered minor nodular asymmetries are stable. There are bilateral coarse and vascular calcifications again seen. The axilla and skin contours are unremarkable. No significant changes. MM/MM tomosynthesis screening BI IMPRESSION: No mammographic evidence of malignancy. ASSESSMENT: BI-RADS 2: Benign RECOMMENDATION: Routine annual mammography screening. This patient's information was entered into a reminder system with a target due date for their next mammogram.
== END 2022-07-31 13:17 | disposition home or self-care (01) ==
LOC: HO.MAMMO 13:16
PROVIDERS: PCP Internal Medicine Geriatric Medicine; Visit Provider Internal Medicine Geriatric Medicine
DX: Z12.31 Encounter for screening mammogram for malignant neoplasm of breast (principal)
CPT/HCPCS: 77063; 77067

== ENCOUNTER 2022-10-18 13:28 | Outpatient (REF) | payer OTHER, SELFPAY ==
--- NOTE | ~2022-10-18 | MM_ITS ---
EXAMINATION: MM DIAGNOSTIC DIGITAL BREAST TOMOSYNTHESIS, LEFT US DIAGNOSTIC ULTRASOUND BREAST, LEFT CLINICAL INFORMATION: 77-year-old with palpable area mid upper outer left breast noted by patient for several weeks. The lifetime risk of breast cancer based on the Tyrer-Cuzick Model is 2%. COMPARISON: Mammography: 07/31/2022, 07/25/2021, 06/17/2020, 03/15/2019 TECHNIQUE: Digital breast tomosynthesis is performed in both the craniocaudal and mediolateral oblique views along with computer-aided detection (CAD). Synthesized 2D images are generated from the tomosynthesis. Ultrasound left breast is targeted to the area of clinical concern using grayscale imaging and color Doppler without and with harmonics. Patient is able to point to the area of concern at time of imaging. FINDINGS: There are scattered areas of fibroglandular density (ACR BI-RADS breast composition Category b). Parenchymal pattern is similar to prior studies and there is no interval significant mass or architectural abnormality or developing density. There is scattered nodularity similar to prior exams. There is an incidental intramammary node mid upper outer left breast which has been present on prior studies. There are scattered benign round and vascular calcifications. The axilla and skin contours are unremarkable. Ultrasound left breast demonstrates benign intramammary node upper outer quadrant mid depth corresponding to the area of palpable concern measuring 0.8 cm in longest dimension. There is normal cristobal architecture and color flow. This corresponds to the stable intramammary node on mammography. There is no other cystic or solid lesion or architectural abnormality in the area of palpable concern. Results are discussed with the patient at time of visit, using an concrete smoother. Patient notes intentional weight loss from prior mammography. The palpable node may be more perceptible given the intentional weight loss. There is no significant changes from prior exams. MM/MM tomosynthesis diagnostic LT IMPRESSION: -No mammographic evidence of malignancy. No significant changes from prior studies. -Palpable concern upper outer left breast corresponds to an old stable intramammary node. ASSESSMENT: BI-RADS 2: Benign RECOMMENDATION: Routine annual mammography screening. This patient's information was entered into a reminder system with a target due date for their next mammogram.
== END 2022-10-18 13:29 | disposition home or self-care (01) ==
LOC: HO.MAMMO 13:28
PROVIDERS: PCP Internal Medicine Geriatric Medicine; Visit Provider Internal Medicine Geriatric Medicine
DX: N63.21 Unspecified lump in the left breast, upper outer quadrant (principal)
CPT/HCPCS: 76642; 77061; 77065

== ENCOUNTER 2023-01-08 16:52 | Emergency (ER) | payer OTHER, SELFPAY ==
[2023-01-08 17:06] VITALS: BP 157/50; PULSE 69; RESP 16; TEMP 36.9; O2SAT 97; BMI 35.4
--- NOTE | 2023-01-08 17:06 | ED.SKABFB ---
HPI - Skin/Abscess/Foreign Bdy General Chief complaint: Allergic Reaction Stated complaint: allergic reaction, itchy Time Seen by Provider: 01/08/23 17:17 Source: patient and family Mode of arrival: ambulatory Limitations: no limitations History of Present Illness HPI narrative: 77 yo female with history of IDDM, HTN here with complaints of itching rash to neck, upper extremities, face x 2 weeks from unknown cause. On 01/03 started zrytec and triamcinolone 0.1% topical as well as benadryl PRN. Continued symptoms so started prednisone taper 01/06. Also using calamine lotion/topical Benadryl with continued symptoms. No new medications, foods, detergents, products. No recent travel or sick contact. No diff breathing, vomiting, diarrhea, abdominal cramping. Today blood sugars running high despite taking her normal diabetic medications. She takes lantus 22units BID, trulicity once weekly, metformin 1000mg BID. Waiting to see an border machine operator outpatient Related Data Home Medications Medication Instructions Recorded Confirmed acetaminophen 500 mg tablet 500 mg PO Q8H PRN pain 01/22/22 amlodipine 10 mg tablet 10 mg PO BEDTIME 01/22/22 aspirin 81 mg tablet,delayed 81 mg PO QAM 01/22/22 release cholecalciferol (vitamin D3) 25 25 mcg PO QAM 01/22/22 mcg (1,000 unit) tablet dulaglutide 4.5 mg/0.5 mL mg subcut QWEEK 01/22/22 subcutaneous pen injector (Trulicity) metformin 500 mg tablet,extended 1,000 mg PO QAM 01/22/22 release 24 hr paroxetine HCl 20 mg tablet 20 mg PO QAM 01/22/22 quetiapine 25 mg tablet 0 mg PO 01/22/22 Previous Rx's Medication Instructions Recorded cephalexin 500 mg capsule 500 mg PO QID 7 days #28 caps 06/21/22 doxycycline hyclate 100 mg tablet 100 mg PO BID 7 days #14 tabs 06/21/22 cetirizine 10 mg tablet 10 mg PO DAILY PRN allergy 01/08/23 symptoms #30 tabs hydroxyzine HCl 25 mg tablet 25 mg PO QID PRN itching #30 tabs 01/08/23 triamcinolone acetonide 0.1 % 1 appl topical TID #80 grams 08/30/23 topical ointment Allergies Allergy/AdvReac Type Severity Reaction Status Date / Time Crustaceans Allergy Severe ANAPHYLAXIS Uncoded 01/08/23 17:05 Review of Systems Review of Systems: Yes all other systems are reviewed and are negative Constitutional: Constitutional: Reports no additional constitutional complaints, Denies body ache(s), Denies chills, Denies fever(s), Denies headache(s) and Denies weakness Eyes: Eyes: Reports no additional eye complaints and Denies change in vision ENT: Reports system reviewed and no additional complaints, except as documented, Denies dizziness, Denies headache(s), Denies nasal congestion, Denies nasal discharge and Denies neck pain Cardiovascular: Cardiovascular: Reports no additional cardiovascular complaints, Denies chest pain, Denies leg edema and Denies dyspnea Respiratory: Respiratory: Reports no additional respiratory complaints, Denies cough and Denies dyspnea Gastrointestinal: Gastrointestinal: Reports no additional gastrointestinal complaints, Denies abdominal pain, Denies diarrhea, Denies nausea and Denies vomiting Genitourinary: Genitourinary: Reports no additional female genitourinary complaints and Denies urinary incontinence Musculoskeletal: Musculoskeletal: Reports no additional musculoskeletal complaints, Denies back pain, Denies arthralgias, Denies joint swelling, Denies neck pain, Denies numbness and Denies tingling Integumentary/Breasts: Skin/Breast: Reports system reviewed and no additional complaints, except as docu and Reports rash Neurologic: Reports system reviewed and no additional complaints, except as documented, Denies Abnormal speech present, Denies dizziness, Denies headache(s), Denies numbness, Denies tingling and Denies weakness [facility] Past Medical History Attestation statement: The following information was validated with the patient. Source: old records reviewed and nursing notes reviewed Medical History Diabetes Hypertension Social History Social History Alcohol intake: never Patient Tobacco Use Status: Never used Tobacco Smoked in Last 30 Days: No Use of substances other than those prescribed or required for medical reasons: No Advance Directives: No Advance Directives Information Provided: No Physical Exam Vital Signs: Vital Signs: Last Vital Signs Temp 98.4 F 01/08/23 17:06 Pulse 69 01/08/23 17:06 Resp 16 01/08/23 17:06 BP 157/50 H 01/08/23 17:06 Pulse Ox 97 01/08/23 17:06 O2 Del Method Room Air 01/08/23 17:06 BMI result Body Mass Index 35.4 Const: General: cooperative, healthy appearing, comfortable and no acute distress Orientation/consciousness: patient oriented x3 Limitations: no limitations HEENT: Head: Yes normal to inspection Ears: hearing grossly normal bilaterally General nose exam: Normal external nose present Face and sinus: Yes normal facial exam Mouth: Normal oral and palatal mucosa present Throat: Yes posterior oropharynx normal Eyes: General: appearance normal, both eyes and all related structures Pupils: Equal, round and reactive pupils present Neck: Other: To the right side of the neck there is an urticarial rash with scaling noted, similar lesions noted over cheeks and trunk. extremities including hand/feet seem to be spared Neck: Yes normal visual inspection Chest: Chest palpation & inspection: normal inspection of the chest Resp: Effort & Inspection: normal respiratory effort Auscultation: clear to auscultation bilaterally Cardio: Rate: regular rate Rhythm: regular rhythm Peripheral pulses: Peripheral pulses 2+ throughout GI: Inspection: Yes normal to inspection Palpation (GI): Soft to palpation and nontender Auscultation: normal bowel sounds Back/Spine/Pelvis: Thoracic/Lumbar Spine: thoracic and lumbar spine normal to inspection Skin: General skin exam: no rashes or lesions noted Neuro: General: patient oriented x3, no focal motor deficits and normal sensation to monofilament Cranial nerves: Yes Equal, round and reactive pupils present Cognition (Neuro): normal cognition Speech: No Abnormal speech present Gait exam (Neuro): Normal gait present Motor exam (neuro): 5/5 motor strength present throughout Extrem: General: Yes normal to inspection Course Course Course Narrative: This is an RME: Additional HPI, ROS, PE not included below will be deferred to primary provider. This is a 55-[id number]-female presenting to the ER with complaints of itchy rash on the right side of her neck x 2 weeks. No new soaps, lotions, detergents. has been on prednisone for the last several days without relief. Also reporting that her blood glucose levels are not being read on the glucometer because it just says high . Plan: Labs, POC Reevaluation(s) Reevaluation #1: 1900-Labs show hyperglycemia with no evidence of DKA. Patient received IVF, IV insulin. Plan to repeat BG after receiving IV meds. If this improves send patient home with adjustments to her meds including lantus so that she may continue prednisone. Sign out to Klarissa WILLIS pending above. Reevaluation #2: Sign-out given to me pending repeat blood glucose level. I administered 2 L of IV fluids given point care was still in the 400s. Repeat blood glucose now 271. Patient stable for discharge. Encouraged to monitor blood glucose levels very closely given prednisone will increase blood glucose level. Patient understands and agrees with plan. Time: 21:08 Medications Administered Generic Name Dose Route Start Last Admin Trade Name Freq PRN Reason Stop Dose Admin Sodium Chloride 1,000 mls @ 999 mls/hr 01/08/23 20:15 01/08/23 20:59 Ns IV 01/08/23 21:15 Infused .Q1H1M CYNTHIA Infusion Discontinued Medications Generic Name Dose Route Start Last Admin Trade Name Freq PRN Reason Stop Dose Admin Hydrocortisone 1 appl 01/08/23 20:31 01/08/23 20:59 Hydrocortisone 1 % Cream 28.35 Gm Tube TOPICAL 01/08/23 20:32 1 appl ONCE ONE Administration Protocol Sodium Chloride 1,000 mls @ 999 mls/hr 01/08/23 18:11 01/08/23 20:08 Ns IV 01/08/23 19:11 Infused .Q1H1M STA Infusion Insulin Human Regular 7 unit 01/08/23 18:14 01/08/23 19:12 Insulin Regular, Human 100 Unit/Ml 3 Ml Vial 0.1 unit/kg (7 unit) 01/08/23 18:15 7 unit IVPUSH Administration ONCE ONE Medical Decision Making Medical Decision Making MDM Narrative: 77 yo female with history of IDDM, HTN here with complaints of itching rash to neck, upper extremities, face x 2 weeks from unknown cause. On 01/03 started zrytec and triamcinolone 0.1% topical as well as benadryl PRN. Continued symptoms so started prednisone taper 01/06. Also using calamine lotion/topical Benadryl with continued symptoms. No new medications, foods, detergents, products. No recent travel or sick contact. No diff breathing, vomiting, diarrhea, abdominal cramping. Today blood sugars running high despite taking her normal diabetic medications. She takes lantus 22units BID, trulicity once weekly, metformin 1000mg BID. Waiting to see an border machine operator outpatient To the right side of the neck there is an urticarial rash with scaling noted, similar lesions noted over cheeks and trunk. extremities including hand/feet seem to be spared likely dermatitis, may also benefit from seeing derm outpatient, no airway involvement, patient most bothered by the itching POC high Will obtain labs, if BG high will give IVF and insulin Differential Diagnosis Differential Diagnoses: The differential diagnosis associated with the presentation includes allergic reaction hyperglycemia secondary to medication Admission/Observation Consideration of admission/observation: Escalation of care including admission/observation considered BG trending down with IVF, insulin with no evidence of DKA Lab Data MDM Lab Attestation statement: I reviewed the patient's lab results. hyperglycemia with no dka 01/08/23 17:29 01/08/23 17:29 Labs: Lab Results 01/08/23 01/08/23 01/08/23 Range/Units 17:29 17:29 18:25 WBC 9.3 (4.8-10.8) X10*3/uL RBC 3.90 L (4.20-5.50) X10*6/uL Hgb 11.1 L (12.0-16.0) g/dl Hct 32.8 L (37.0-47.0) % MCV 84.1 (80.0-98.0) fL MCH 28.5 (27.0-33.0) pg MCHC 33.8 (31.0-35.0) g/dl RDW 13.2 (11.0-16.0) % Plt Count 196 (160-400) X10*3/uL MPV 9.8 (9.4-12.3) fL Immature Gran % (Auto) 0.5 H (0.0-0.4) % Neut % (Auto) 85.9 H (45-73) % Lymph % (Auto) 9.3 L (20-40) % Wake % (Auto) 3.8 (2-11) % Eos % (Auto) 0.3 (0-4) % Baso % (Auto) 0.2 (0-2) % Lymph # (Auto) 0.9 L (1.2-4.9) X10*3/uL [place] # (Auto) 0.4 (0.1-1.2) X10*3/uL Eos # (Auto) 0.0 (0.0-0.4) X10*3/uL Baso # (Auto) 0.0 (0.0-0.2) X10*3/uL Abs Immat Gran (auto) 0.05 H (0.00-0.03) X10*3/uL Absolute Neuts (auto) 7.9 (2.0-8.3) x10*3/uL Absolute Nucleated RBC 0.000 (0.0-0.012) X10*3/uL Nucleated RBC % (auto) 0.0 (0.0-0.2) /100WBC VBG pH (7.32-7.43) VBG pCO2 mmHg VBG pO2 mmHg VBG HCO3 (22-26) mmol/L VBG O2 Saturation % VBG Base Excess mmol/L Sodium 131 L (135-145) mmol/L Potassium 4.9 (3.3-5.1) mmol/L Chloride 93 L (96-108) mmol/L Carbon Dioxide 25 (22-29) mmol/L Anion Gap 18 (12-20) BUN 25 H (9-16) mg/dL Creatinine 1.28 (0.5-1.4) mg/dL Estim Creat Clear Calc 26.1 Estimated GFR 40 POC Glucose (60-115) mg/dL Random Glucose 547 H* (60-115) mg/dL Calcium 9.5 (8.4-10.2) mg/dL Total Bilirubin 0.4 (0.0-1.0) mg/dL Direct Bilirubin 0.2 (0.0-0.5) mg/dL AST 29 (5-31) U/L ALT 23 (0-31) U/L Alkaline Phosphatase 65 (39-117) U/L Total Protein 7.4 (6.5-8.0) g/dL Albumin 4.2 (3.5-5.0) g/dL Beta-Hydroxybutyrate 0.20 (0.02-0.27) mmol/L 01/08/23 01/08/23 01/08/23 Range/Units 19:32 20:00 20:16 WBC (4.8-10.8) X10*3/uL RBC (4.20-5.50) X10*6/uL Hgb (12.0-16.0) g/dl Hct (37.0-47.0) % MCV (80.0-98.0) fL MCH (27.0-33.0) pg MCHC (31.0-35.0) g/dl RDW (11.0-16.0) % Plt Count (160-400) X10*3/uL MPV (9.4-12.3) fL Immature Gran % (Auto) (0.0-0.4) % Neut % (Auto) (45-73) % Lymph % (Auto) (20-40) % [place] % (Auto) (2-11) % Eos % (Auto) (0-4) % Baso % (Auto) (0-2) % Lymph # (Auto) (1.2-4.9) X10*3/uL [place] # (Auto) (0.1-1.2) X10*3/uL Eos # (Auto) (0.0-0.4) X10*3/uL Baso # (Auto) (0.0-0.2) X10*3/uL Abs Immat Gran (auto) (0.00-0.03) X10*3/uL Absolute Neuts (auto) (2.0-8.3) x10*3/uL Absolute Nucleated RBC (0.0-0.012) X10*3/uL Nucleated RBC % (auto) (0.0-0.2) /100WBC VBG pH 7.38 (7.32-7.43) VBG pCO2 45 mmHg VBG pO2 69 mmHg VBG HCO3 26 (22-26) mmol/L VBG O2 Saturation 85.0 % VBG Base Excess 1.4 mmol/L Sodium (135-145) mmol/L Potassium (3.3-5.1) mmol/L Chloride (96-108) mmol/L Carbon Dioxide (22-29) mmol/L Anion Gap (12-20) BUN (9-16) mg/dL Creatinine (0.5-1.4) mg/dL Estim Creat Clear Calc Estimated GFR POC Glucose 408 H* 304 H (60-115) mg/dL Random Glucose (60-115) mg/dL Calcium (8.4-10.2) mg/dL Total Bilirubin (0.0-1.0) mg/dL Direct Bilirubin (0.0-0.5) mg/dL AST (5-31) U/L ALT (0-31) U/L Alkaline Phosphatase (39-117) U/L Total Protein (6.5-8.0) g/dL Albumin (3.5-5.0) g/dL Beta-Hydroxybutyrate (0.02-0.27) mmol/L 01/08/23 Range/Units 20:57 WBC (4.8-10.8) X10*3/uL RBC (4.20-5.50) X10*6/uL Hgb (12.0-16.0) g/dl Hct (37.0-47.0) % MCV (80.0-98.0) fL MCH (27.0-33.0) pg MCHC (31.0-35.0) g/dl RDW (11.0-16.0) % Plt Count (160-400) X10*3/uL MPV (9.4-12.3) fL Immature Gran % (Auto) (0.0-0.4) % Neut % (Auto) (45-73) % Lymph % (Auto) (20-40) % Wake % (Auto) (2-11) % Eos % (Auto) (0-4) % Baso % (Auto) (0-2) % Lymph # (Auto) (1.2-4.9) X10*3/uL [place] # (Auto) (0.1-1.2) X10*3/uL Eos # (Auto) (0.0-0.4) X10*3/uL Baso # (Auto) (0.0-0.2) X10*3/uL Abs Immat Gran (auto) (0.00-0.03) X10*3/uL Absolute Neuts (auto) (2.0-8.3) x10*3/uL Absolute Nucleated RBC (0.0-0.012) X10*3/uL Nucleated RBC % (auto) (0.0-0.2) /100WBC VBG pH (7.32-7.43) VBG pCO2 mmHg VBG pO2 mmHg VBG HCO3 (22-26) mmol/L VBG O2 Saturation % VBG Base Excess mmol/L Sodium (135-145) mmol/L Potassium (3.3-5.1) mmol/L Chloride (96-108) mmol/L Carbon Dioxide (22-29) mmol/L Anion Gap (12-20) BUN (9-16) mg/dL Creatinine (0.5-1.4) mg/dL Estim Creat Clear Calc Estimated GFR POC Glucose 271 H (60-115) mg/dL Random Glucose (60-115) mg/dL Calcium (8.4-10.2) mg/dL Total Bilirubin (0.0-1.0) mg/dL Direct Bilirubin (0.0-0.5) mg/dL AST (5-31) U/L ALT (0-31) U/L Alkaline Phosphatase (39-117) U/L Total Protein (6.5-8.0) g/dL Albumin (3.5-5.0) g/dL Beta-Hydroxybutyrate (0.02-0.27) mmol/L Discharge Plan Discharge Clinical Impression: Acute hyperglycemia, Dermatitis Patient Disposition: Home, Self-Care Instructions: Diabetic Hyperglycemia (ED), Dermatitis (ED) Additional Instructions: Continue the prednisone We are increasing your dose of cetirizine We are also changing your dose and frequency of topical steroid You may continue calamine and topical benadryl Take the hydroxyzine for itching Increase your dose of lantus to 30 units twice daily while on the prednisone Continue with plan to follow-up with an border machine operator, and ask for a referral to dermatology Prescriptions: New cetirizine 10 mg tablet 10 mg PO DAILY PRN (Reason: allergy symptoms) Qty: 30 0RF triamcinolone acetonide 0.1 % ointment 1 appl topical TID Qty: 80 0RF hydroxyzine HCl 25 mg tablet 25 mg PO QID PRN (Reason: itching) Qty: 30 0RF No Action cephalexin 500 mg capsule 500 mg PO QID 7 Days Qty: 28 0RF doxycycline hyclate 100 mg tablet 100 mg PO BID 7 Days Qty: 14 0RF Trulicity 4.5 mg/0.5 mL pen injector subcut QWEEK cholecalciferol (vitamin D3) 25 mcg (1,000 unit) tablet 25 mcg PO QAM amlodipine 10 mg tablet 10 mg PO BEDTIME quetiapine 25 mg tablet 0 mg PO paroxetine HCl 20 mg tablet 20 mg PO QAM metformin 500 mg tablet extended release 24 hr 1,000 mg PO QAM aspirin 81 mg tablet,delayed release (DR/EC) 81 mg PO QAM acetaminophen 500 mg tablet 500 mg PO Q8H PRN (Reason: pain) Referrals: Name,MD Salomón [Primary Care Provider] - 1 week
[2023-01-08 17:33] LABS: MANUAL DIFF FLAG NO
[2023-01-08 17:36] LABS: Basophils Percent Auto 0.2 % (0-2); Eosinophils Percent Auto 0.3 % (0-4); Hematocrit 32.8 % (37.0-47.0); Hemoglobin 11.1 g/dl (12.0-16.0); Imm Gran Abs Auto 0.05 X10*3/uL (0.00-0.03); Imm Gran Pct Auto 0.5 % (0.0-0.4); Lymphocytes Absolute Auto 0.9 X10*3/uL (1.2-4.9); Lymphocytes Percent Auto 9.3 % (20-40); Mean Corpuscular HGB Conc 33.8 g/dl (31.0-35.0); Mean Corpuscular Hemoglobin 28.5 pg (27.0-33.0); Mean Corpuscular Volume 84.1 fL (80.0-98.0); Mean Platelet Volume 9.8 fL (9.4-12.3); Monocytes Absolute Auto 0.4 X10*3/uL (0.1-1.2); Monocytes Percent Auto 3.8 % (2-11); Neutrophils Absolute Auto 7.9 x10*3/uL (2.0-8.3); Neutrophils Percent Auto 85.9 % (45-73); Platelet Count 196 X10*3/uL (160-400); Red Cell Distribution Width 13.2 % (11.0-16.0); White Blood Count 9.3 X10*3/uL (4.8-10.8)
[2023-01-08 18:12] LABS: Alanine Aminotransferase 23 U/L (0-31); Albumin Level 4.2 g/dL (3.5-5.0); Alkaline Phosphatase 65 U/L (39-117); Anion Gap 18 (12-20); Aspartate Amino Transferase 29 U/L (5-31); Bilirubin Direct 0.2 mg/dL (0.0-0.5); Bilirubin Total 0.4 mg/dL (0.0-1.0); Blood Urea Nitrogen 25 mg/dL (9-16); Calcium 9.5 mg/dL (8.4-10.2); Carbon Dioxide 25 mmol/L (22-29); Chloride 93 mmol/L (96-108); Creatinine Clr Calc Pharmacy 26.1; Estimated Glomerular Filt Rate 40; Glucose Random 547 mg/dL (60-115); Potassium 4.9 mmol/L (3.3-5.1); Sodium 131 mmol/L (135-145); Total Protein 7.4 g/dL (6.5-8.0)
[2023-01-08] MEDS: 0.9 % Sodium Chloride 1,000 ML 999 ML IV ×2 (19:03→20:07)
[2023-01-08] MEDS: Insulin Regular, Human 100 UNIT/ML 3 ML VIAL 7 UNIT IVPUSH (19:12)
--- NOTE | 2023-01-08 19:16 | PC.NURSE ---
20g IV placed in left hand- VBG sent 1l NS infusing per order
[2023-01-08 19:36] LABS: Glucose, Whole Blood 408 mg/dL (60-115)
[2023-01-08 20:06] LABS: VBG Base Excess 1.4 mmol/L; VBG HCO3 26 mmol/L (22-26); VBG pCO2 45 mmHg; VBG pH 7.38 (7.32-7.43); VBG pO2 69 mmHg
[2023-01-08 20:19] LABS: Glucose, Whole Blood 304 mg/dL (60-115)
[2023-01-08 20:21] LABS: Venous Blood Gas Refer to POC result
[2023-01-08] MEDS: Hydrocortisone 1 % Cream 28.35 GM TUBE 1 APPL TOPICAL (20:59)
[2023-01-08 21:01] LABS: Glucose, Whole Blood 271 mg/dL (60-115)
== END 2023-01-08 21:15 | disposition home or self-care (01) ==
PROVIDERS: Nurse Practitioner Family; Physician Assistant Medical; Emergency Provider Emergency Medicine Emergency Medical Services; PCP Internal Medicine Geriatric Medicine
DX: E11.65 Type 2 diabetes mellitus with hyperglycemia (principal); L30.9 Dermatitis, unspecified; I10 Essential (primary) hypertension; Z79.84 Long term (current) use of oral hypoglycemic drugs; Z79.85 Long-term (current) use of injectable non-insulin antidiabetic drugs; Z79.899 Other long term (current) drug therapy; Z79.82 Long term (current) use of aspirin
CPT/HCPCS: 36415; 80048; 80076; 82010; 82803; 82947; 85025; 96361; 96374; 99284

== ENCOUNTER 2023-01-10 16:37 | Emergency (ER) | payer OTHER, SELFPAY ==
[2023-01-10 16:40] VITALS: BP 156/51; PULSE 63; RESP 18; TEMP 36.7; O2SAT 99; BMI 35.0
--- NOTE | 2023-01-10 16:43 | ED.SKABFB ---
HPI - Skin/Abscess/Foreign Bdy General Chief complaint: General Medical Stated complaint: Rash Time Seen by Provider: 01/10/23 21:20 Source: patient and family Mode of arrival: ambulatory Limitations: no limitations History of Present Illness HPI narrative: 69-year-old female presents with rash. The rash is distributed on the face and chest. Symptoms started 3 weeks ago. The symptoms are severe. They are so severe pruritus. There is no difficulty swallowing or breathing. No reports of angioedema. Previous treatments included prednisone, oral antihistamines and topical medications. There has been no significant improvement. No new medications, foods or any other known allergens. Patient has not seen an accounting manager cpa. Related Data Home Medications Medication Instructions Recorded Confirmed acetaminophen 500 mg tablet 500 mg PO Q8H PRN pain 01/22/22 amlodipine 10 mg tablet 10 mg PO BEDTIME 01/22/22 aspirin 81 mg tablet,delayed 81 mg PO QAM 01/22/22 release cholecalciferol (vitamin D3) 25 25 mcg PO QAM 01/22/22 mcg (1,000 unit) tablet dulaglutide 4.5 mg/0.5 mL mg subcut QWEEK 01/22/22 subcutaneous pen injector (Trulicity) metformin 500 mg tablet,extended 1,000 mg PO QAM 01/22/22 release 24 hr paroxetine HCl 20 mg tablet 20 mg PO QAM 01/22/22 quetiapine 25 mg tablet 0 mg PO 01/22/22 Previous Rx's Medication Instructions Recorded cephalexin 500 mg capsule 500 mg PO QID 7 days #28 caps 06/21/22 doxycycline hyclate 100 mg tablet 100 mg PO BID 7 days #14 tabs 06/21/22 cetirizine 10 mg tablet 10 mg PO DAILY PRN allergy 01/08/23 symptoms #30 tabs hydroxyzine HCl 25 mg tablet 25 mg PO QID PRN itching #30 tabs 01/08/23 triamcinolone acetonide 0.1 % 1 appl topical TID #80 grams 01/08/23 topical ointment pimecrolimus 1 % topical cream 1 appl topical DAILY #60 grams 01/10/23 prednisone 20 mg tablet 20 mg PO DAILY #7 tabs 01/10/23 Allergies Allergy/AdvReac Type Severity Reaction Status Date / Time Crustaceans Allergy Severe ANAPHYLAXIS Uncoded 01/08/23 17:05 Review of Systems Review of Systems: CONSTITUTIONAL: Denies weight loss, fever and chills. HEENT: Denies changes in vision and hearing. RESPIRATORY: Denies SOB and cough. CV: Denies palpitations no CP. GI: Denies abdominal pain, nausea, vomiting and diarrhea. : Denies dysuria and urinary frequency. MSK: Denies myalgia and joint pain. SKIN: + rash and pruritus. NEUROLOGICAL: Denies headache and syncope. PSYCHIATRIC: Denies recent changes in mood. Denies anxiety and depression. All other ROS are negative unless in HPI PMFSH Past Medical History Medical History Diabetes Hypertension Social History Social History Alcohol intake: never Patient Tobacco Use Status: Never used Tobacco Smoked in Last 30 Days: No Use of substances other than those prescribed or required for medical reasons: No Advance Directives: No Advance Directives Information Provided: No Physical Exam Vital Signs: Vital Signs: Last Vital Signs Temp 98.0 F 01/10/23 20:54 Pulse 57 01/10/23 20:54 Resp 16 01/10/23 20:54 BP 166/49 H 01/10/23 20:54 Pulse Ox 98 01/10/23 20:54 O2 Del Method Room Air 01/10/23 20:54 BMI result Body Mass Index 35.0 GEN: Well developed, no acute distress, alert, oriented HEENT: Normocephalic, atraumatic, normal external ears, nose appears normal, no angioedema Eyes: Normal to appearance Neck: Supple, no lymphadenopathy Respiratory: Talks in complete sentences, no respiratory distress Extremities: No clubbing cyanosis or edema Neurologic: No focal neurologic deficits, cranial nerves 2-12 intact, gait normal Skin: Raised erythematous rash on face and upper chest Course Course Course Narrative: This is an RME: Additional HPI, ROS, PE not included below will be deferred to primary provider. This is a [id number]-female, with a hx of IDDM, HTN, presenting to the ER with complaints of itching rash to neck, upper extremities, face x 2 weeks from unknown cause. On 01/03 started zrytec and triamcinolone 0.1% topical as well as benadryl PRN. Continued symptoms so started prednisone taper 01/06. Also using calamine lotion/topical Benadryl with continued symptoms. No new medications, foods, detergents, products. No recent travel or sick contact. She was seen on 01/08/2023, found to be hyperglycemic, had several liters of IV fluids and was told to continue prednisone. Daughter did not continue prednisone on friday. Rash now spread to her face. No CP, SOB. Plan: Repeat labs Medical Decision Making Medical Decision Making [facility] Narrative: Patient presents with an allergic rash to her face and chest. Will recommend oral steroids, topical medications, oral antihistamines. There is no clear etiology of her symptoms. There is no evidence of angioedema. We discussed strategies for increasing patient's Lantus for better blood sugar control. Lab Data 01/10/23 17:10 01/10/23 17:10 Labs: Lab Results 01/10/23 01/10/23 01/10/23 Range/Units 17:10 17:10 20:56 WBC 6.0 (4.8-10.8) X10*3/uL RBC 4.07 L (4.20-5.50) X10*6/uL Hgb 11.9 L (12.0-16.0) g/dl Hct 35.1 L (37.0-47.0) % MCV 86.2 (80.0-98.0) fL MCH 29.2 (27.0-33.0) pg MCHC 33.9 (31.0-35.0) g/dl RDW 13.6 (11.0-16.0) % Plt Count 198 (160-400) X10*3/uL MPV 9.5 (9.4-12.3) fL Immature Gran % (Auto) 0.3 (0.0-0.4) % Neut % (Auto) 56.5 (45-73) % Lymph % (Auto) 25.2 (20-40) % [place] % (Auto) 9.6 (2-11) % Eos % (Auto) 8.1 H (0-4) % Baso % (Auto) 0.3 (0-2) % Lymph # (Auto) 1.5 (1.2-4.9) X10*3/uL [place] # (Auto) 0.6 (0.1-1.2) X10*3/uL Eos # (Auto) 0.5 H (0.0-0.4) X10*3/uL Baso # (Auto) 0.0 (0.0-0.2) X10*3/uL Abs Immat Gran (auto) 0.02 (0.00-0.03) X10*3/uL Absolute Neuts (auto) 3.4 (2.0-8.3) x10*3/uL Absolute Nucleated RBC 0.000 (0.0-0.012) X10*3/uL Nucleated RBC % (auto) 0.0 (0.0-0.2) /100WBC Sodium 136 (135-145) mmol/L Potassium 4.2 (3.3-5.1) mmol/L Chloride 99 (96-108) mmol/L Carbon Dioxide 25 (22-29) mmol/L Anion Gap 16 (12-20) BUN 17 H (9-16) mg/dL Creatinine 0.98 (0.5-1.4) mg/dL Estim Creat Clear Calc 33.8 Estimated GFR 55 POC Glucose 274 H (60-115) mg/dL Random Glucose 309 H (60-115) mg/dL Calcium 9.0 (8.4-10.2) mg/dL Total Bilirubin 0.3 (0.0-1.0) mg/dL Direct Bilirubin 0.1 (0.0-0.5) mg/dL AST 47 H (5-31) U/L ALT 38 H (0-31) U/L Alkaline Phosphatase 61 (39-117) U/L Total Protein 7.1 (6.5-8.0) g/dL Albumin 4.0 (3.5-5.0) g/dL Discharge Plan Discharge Clinical Impression: Allergic reaction, Acute hyperglycemia Patient Disposition: Home, Self-Care Instructions: Diabetic Hyperglycemia (ED), General Allergic Reaction (ED), Allergy Testing (ED) Additional Instructions: Increase Lantus to 26 units Prescriptions: New pimecrolimus 1 % cream 1 appl topical DAILY Qty: 60 0RF prednisone 20 mg tablet 20 mg PO DAILY Qty: 7 0RF No Action cephalexin 500 mg capsule 500 mg PO QID 7 Days Qty: 28 0RF doxycycline hyclate 100 mg tablet 100 mg PO BID 7 Days Qty: 14 0RF cetirizine 10 mg tablet 10 mg PO DAILY PRN (Reason: allergy symptoms) Qty: 30 0RF triamcinolone acetonide 0.1 % ointment 1 appl topical TID Qty: 80 0RF hydroxyzine HCl 25 mg tablet 25 mg PO QID PRN (Reason: itching) Qty: 30 0RF Trulicity 4.5 mg/0.5 mL pen injector subcut QWEEK cholecalciferol (vitamin D3) 25 mcg (1,000 unit) tablet 25 mcg PO QAM amlodipine 10 mg tablet 10 mg PO BEDTIME quetiapine 25 mg tablet 0 mg PO paroxetine HCl 20 mg tablet 20 mg PO QAM metformin 500 mg tablet extended release 24 hr 1,000 mg PO QAM aspirin 81 mg tablet,delayed release (DR/EC) 81 mg PO QAM acetaminophen 500 mg tablet 500 mg PO Q8H PRN (Reason: pain) Referrals: Sara Rogers MD [Physician] -
[2023-01-10 17:14] LABS: MANUAL DIFF FLAG NO
[2023-01-10 17:20] LABS: Basophils Percent Auto 0.3 % (0-2); Eosinophils Absolute Auto 0.5 X10*3/uL (0.0-0.4); Eosinophils Percent Auto 8.1 % (0-4); Hematocrit 35.1 % (37.0-47.0); Hemoglobin 11.9 g/dl (12.0-16.0); Imm Gran Abs Auto 0.02 X10*3/uL (0.00-0.03); Imm Gran Pct Auto 0.3 % (0.0-0.4); Lymphocytes Absolute Auto 1.5 X10*3/uL (1.2-4.9); Lymphocytes Percent Auto 25.2 % (20-40); Mean Corpuscular HGB Conc 33.9 g/dl (31.0-35.0); Mean Corpuscular Hemoglobin 29.2 pg (27.0-33.0); Mean Corpuscular Volume 86.2 fL (80.0-98.0); Mean Platelet Volume 9.5 fL (9.4-12.3); Monocytes Absolute Auto 0.6 X10*3/uL (0.1-1.2); Monocytes Percent Auto 9.6 % (2-11); Neutrophils Absolute Auto 3.4 x10*3/uL (2.0-8.3); Neutrophils Percent Auto 56.5 % (45-73); Platelet Count 198 X10*3/uL (160-400); Red Blood Count 4.07 X10*6/uL (4.20-5.50); Red Cell Distribution Width 13.6 % (11.0-16.0)
[2023-01-10 17:47] LABS: Alanine Aminotransferase 38 U/L (0-31); Alkaline Phosphatase 61 U/L (39-117); Anion Gap 16 (12-20); Aspartate Amino Transferase 47 U/L (5-31); Bilirubin Direct 0.1 mg/dL (0.0-0.5); Bilirubin Total 0.3 mg/dL (0.0-1.0); Blood Urea Nitrogen 17 mg/dL (9-16); Carbon Dioxide 25 mmol/L (22-29); Chloride 99 mmol/L (96-108); Creatinine Clr Calc Pharmacy 33.8; Estimated Glomerular Filt Rate 55; Glucose Random 309 mg/dL (60-115); Potassium 4.2 mmol/L (3.3-5.1); Sodium 136 mmol/L (135-145); Total Protein 7.1 g/dL (6.5-8.0)
[2023-01-10 20:54] VITALS: BP 166/49; PULSE 57; RESP 16; TEMP 36.7; O2SAT 98
[2023-01-10 21:01] LABS: Glucose, Whole Blood 274 mg/dL (60-115)
== END 2023-01-10 22:10 | disposition home or self-care (01) ==
PROVIDERS: Physician Assistant Medical; Emergency Provider Emergency Medicine; PCP Internal Medicine Geriatric Medicine
DX: L50.0 Allergic urticaria (principal); E11.65 Type 2 diabetes mellitus with hyperglycemia; Z79.84 Long term (current) use of oral hypoglycemic drugs; Z79.899 Other long term (current) drug therapy
CPT/HCPCS: 36415; 80048; 80076; 82947; 85025; 99283; 99284

== ENCOUNTER 2023-02-05 15:22 | Emergency (ER) | payer OTHER, SELFPAY ==
--- NOTE | ~2023-02-05 | XR_ITS ---
EXAMINATION: XR LUMBOSACRAL SPINE CLINICAL INFORMATION: Right lower back pain. COMPARISON: No similar priors are available for comparison. TECHNIQUE: Three views of the lumbosacral spine. FINDINGS: No evidence of acute compression deformity or traumatic subluxation. Moderate to severe intervertebral disc height loss and facet arthropathy at L4-L5 and L5-S1 leading to certain degree of neural foraminal encroachment. Prominent multilevel anterior osteophytes. SI joints are symmetric. No significant paraspinal soft tissue abnormality. Scattered vascular calcifications. XR/XR lumbar spine 2-3V IMPRESSION: 1. No acute compression deformity or malalignment. 2. Moderate to severe lumbar spondylosis, more prominent at L4-L5 and L5-S1 leading to neural foraminal encroachment. Further evaluation with an MRI could be obtained as clinically deemed appropriate.
--- NOTE | 2023-02-05 15:40 | ED.LOWEXIN ---
HPI - Extremity Injury (Lower) General Chief Complaint: Extremity Problem Stated Complaint: pain in Right leg, back Time Seen by Provider: 02/05/23 17:11 Source: patient, family (patient's daughter) and sodder Mode of arrival: ambulatory Limitations: language barrier History of Present Illness HPI Narrative: Patient is a 77 year old assigned female at with a history of DM presenting to the emergency department today with right sided back pain. Patient states that over the last week she has had right sided back pain that radiates down into her leg. Patient states that she does not want any steroids because of what it does to her sugars. Patient denies any dizziness, lightheadedness, abdominal pain, nausea, vomiting, fever, chills, blurry vision, double vision, loss of vision, chest pain, difficulty breathing, shortness of breath, night sweats, pain with urination, increased urinary frequency, increased urinary urgency, blood in her urine or stool, syncope or a near syncopal episode, recent trauma or falls, bowel incontinence, bladder incontinence, bowel retention, bladder retention, or any other complaints at this time. Onset (ago): week(s) (1) Place: home Severity: mild Severity scale (1-10): 3 Relieving factors: nothing Exacerbating factors: nothing Other symptoms: none Related Data Home Medications Medication Instructions Recorded Confirmed acetaminophen 500 mg tablet 500 mg PO Q8H PRN pain 01/22/22 amlodipine 10 mg tablet 10 mg PO BEDTIME 01/22/22 aspirin 81 mg tablet,delayed 81 mg PO QAM 01/22/22 release cholecalciferol (vitamin D3) 25 25 mcg PO QAM 01/22/22 mcg (1,000 unit) tablet dulaglutide 4.5 mg/0.5 mL mg subcut QWEEK 01/22/22 subcutaneous pen injector (Trulicity) metformin 500 mg tablet,extended 1,000 mg PO QAM 01/22/22 release 24 hr paroxetine HCl 20 mg tablet 20 mg PO QAM 01/22/22 quetiapine 25 mg tablet 0 mg PO 01/22/22 Previous Rx's Medication Instructions Recorded cephalexin 500 mg capsule 500 mg PO QID 7 days #28 caps 06/21/22 doxycycline hyclate 100 mg tablet 100 mg PO BID 7 days #14 tabs 06/21/22 cetirizine 10 mg tablet 10 mg PO DAILY PRN allergy 01/08/23 symptoms #30 tabs hydroxyzine HCl 25 mg tablet 25 mg PO QID PRN itching #30 tabs 01/08/23 triamcinolone acetonide 0.1 % 1 appl topical TID #80 grams 01/08/23 topical ointment pimecrolimus 1 % topical cream 1 appl topical DAILY #60 grams 01/10/23 prednisone 20 mg tablet 20 mg PO DAILY #7 tabs 01/10/23 cyclobenzaprine 5 mg tablet 5 mg PO TID PRN back pain 7 days 02/05/23 #21 tabs Allergies Allergy/AdvReac Type Severity Reaction Status Date / Time Crustaceans Allergy Severe ANAPHYLAXIS Uncoded 01/08/23 17:05 Review of Systems Constitutional: Constitutional: Reports no additional constitutional complaints, Denies chills, Denies fever(s) and Denies night sweats Eyes: Eyes: Reports no additional eye complaints, Denies blurry vision, Denies change in vision, Denies diplopia, Denies eye discharge, Denies loss of vision and Denies eye pain ENT: Denies dizziness Cardiovascular: Cardiovascular: Reports no additional cardiovascular complaints, Denies chest pain, Denies lightheadedness, Denies Loss of Consciousness and Denies dyspnea Respiratory: Respiratory: Reports no additional respiratory complaints and Denies dyspnea Gastrointestinal: Gastrointestinal: Reports no additional gastrointestinal complaints, Denies abdominal pain, Denies melena, Denies hematochezia, Denies change in bowel habits and Denies change in stool character Genitourinary: Genitourinary: Denies hematuria, Denies urinary frequency, Denies dysuria, Denies urinary incontinence, Denies urinary hesitancy and Denies urinary urgency Musculoskeletal: Musculoskeletal: Reports no additional musculoskeletal complaints, Reports back pain, Denies numbness and Denies tingling Neurologic: Denies dizziness, Denies loss of vision, Denies numbness and Denies tingling Psychiatric: Psychiatric: Reports no additional psychiatric complaints Endocrine: Endocrine: Reports no additional endocrine complaints Hematologic/Lymphatic: Hematologic/Lymphatic: Reports no additional hematologic/lymphatic complaints Allergic/Immunologic: Allergic/Immunologic: Reports no additional allergic/immunologic complaints PMFSH Past Medical History Attestation statement: The following information was validated with the patient. (patient's daughter validated all information.) Source: old records reviewed, obtained from family (patient's daughter provided additional history and confirmed the history provided by the patient) and nursing notes reviewed Medical History Diabetes Hypertension Social History Social History Alcohol intake: never Patient Tobacco Use Status: Never used Tobacco Advance Directives: No Advance Directives Information Provided: No Physical Exam Vital Signs: Vital Signs: Last Vital Signs Temp 98 F 02/05/23 15:43 Pulse 57 02/05/23 15:43 Resp 18 02/05/23 15:43 BP 145/43 H 02/05/23 15:43 Pulse Ox 98 02/05/23 15:43 O2 Del Method Room Air 02/05/23 15:43 BMI result Body Mass Index 30.3 Const: General: cooperative, no acute distress, alert and awake Nutritional Appearance: well nourished Orientation/consciousness: patient oriented x3 Limitations: no limitations HEENT: Head: Yes normal to inspection and Yes atraumatic Ears: hearing grossly normal bilaterally and external ears normal General nose exam: Normal external nose present, no nasal discharge noted and no epistaxis Face and sinus: Yes normal facial exam, No abrasion and No laceration Mouth: Normal oral and palatal mucosa present, no drooling and no muffled voice Eyes: General: appearance normal, both eyes and all related structures Periorbital: periorbital findings normal Eyelids: Yes eyelids normal Conjunctivae: conjunctivae normal Pupils: Equal, round and reactive pupils present EOM: EOMs intact bilaterally Neck: Neck: Yes normal visual inspection, Yes full ROM and Yes no lymphadenopathy Chest: Chest palpation & inspection: normal inspection of the chest Resp: Effort & Inspection: normal respiratory effort and able to speak in complete sentences GI: Inspection: Yes normal to inspection : General: Yes no CVA tenderness Back/Spine/Pelvis: Back: no CVA tenderness Cervical Spine: normal cervical lordosis and cervical ROM normal Thoracic/Lumbar Spine: thoracic and lumbar spine normal to inspection Pelvis: no pain with anterior-posterior compression Neuro: General: patient oriented x3 and moves all extremities Cranial nerves: Yes Equal, round and reactive pupils present Cognition (Neuro): normal cognition Motor exam (neuro): 5/5 motor strength present throughout Sensory Exam: Normal double simultaneous stimulation for sensation Coordination: [id number] test normal Extrem: General: Yes normal to inspection, Yes full ROM and Yes capillary refill normal Psych: Appearance: grossly normal Mental Status: mental status grossly normal Affect: normal affect Attitude: cooperative Thought process: Normal thought process present Thought content: Normal thought content present Insight: Good insight present (Psych) Course Course Course Narrative: FLORY:? 77 yo F presents with 10/10 right lower back pain with radiation down buttocks and RLE into toes x1 week. Denies dysuria, hematuria, saddle paresthesias. bowel or bladder incontinence or retention. Denies previous episodes. No midline spinous tenderness. R paraspinous tenderness. R buttock tenderness. No CVAT b/l. Strength 5/5/ intact. Sensation intact to light touch. NV intact distally. Ambulating with steady gate. XR lumbar spine. Full HPI, ROS and PE to be performed by the primary ED provider. Medications Administered Discontinued Medications Generic Name Dose Route Start Last Admin Trade Name Freq PRN Reason Stop Dose Admin Cyclobenzaprine HCl 5 mg 02/05/23 17:27 02/05/23 17:36 Cyclobenzaprine Hcl 5 Mg Tablet PO 02/05/23 17:28 5 mg ONCE ONE Administration Ketorolac Tromethamine 15 mg 02/05/23 17:27 02/05/23 17:36 Ketorolac Tromethamine 15 Mg/Ml Vial IM 02/05/23 17:28 15 mg ONCE ONE Administration Medical Decision Making Medical Decision Making [facility] Narrative: Patient is a 77 year old assigned female at with a history of DM presenting to the emergency department today with low back pain. Patient's physical exam was unremarkable. Patient's lumbar x-ray showed moderate to severe lumbar spondylosis. I explained my physical exam findings as well as all test results to the patient and the patient's daughter. I answered all questions asked by the patient and the patient's daughter. Patient received IM Toradol and PO Flexeril which she stated helped her symptoms significantly. I stressed the importance of the patient taking her medication as prescribed. I stressed the importance of the patient following up with her primary care provider and a communications specialist. I stressed the importance of the patient returning to the emergency department immediately if her symptoms were to worsen or if she were to develop any dizziness, shortness of breath, difficulty breathing, chest pain, blurry vision, loss of vision, nausea, vomiting, abdominal pain, fever, chills, back pain, or any other complaints. Patient and the patient's daughter verbalized agreement and understanding with this treatment plan and discharge. Differential Diagnosis Differential Diagnoses: The differential diagnosis associated with the presentation includes Lumbar radiculopathy Sciatica Low back pain Independent Interpretation I performed an independent interpretation of an: Plain X-Ray Interpretation: My interpretation is in agreement with the radiologist's impression of this imaging study. EXAMINATION: XR LUMBOSACRAL SPINE CLINICAL INFORMATION: Right lower back pain. COMPARISON: No similar priors are available for comparison. TECHNIQUE: Three views of the lumbosacral spine. FINDINGS: No evidence of acute compression deformity or traumatic subluxation. Moderate to severe intervertebral disc height loss and facet arthropathy at L4-L5 and L5-S1 leading to certain degree of neural foraminal encroachment. Prominent multilevel anterior osteophytes. SI joints are symmetric. No significant paraspinal soft tissue abnormality. Scattered vascular calcifications. XR/XR lumbar spine 2-3V IMPRESSION: 1. No acute compression deformity or malalignment. 2. Moderate to severe lumbar spondylosis, more prominent at L4-L5 and L5-S1 leading to neural foraminal encroachment. Further evaluation with an MRI could be obtained as clinically deemed appropriate. Dictated By: Kim Coley Signed By: Electronically signed by Kim Coley 02/05/23 1279 Radiology Impression Discussion of test interpretation with radiology: I have reviewed the radiologist's reading. Independent Historian Clinical information obtained from an independent historian. History obtained from or confirmed by: Other (patient's daughter provided additional history and confirmed the history provided by the patient.) Prescription Management I considered prescription management with: Pain Medication (pain medication prescribed.) Chronic Conditions Patient?s care impacted by: Diabetes Discharge Plan Discharge Clinical Impression: Sciatica Patient Disposition: Home, Self-Care Instructions: Sciatica (ED) Additional Instructions: Follow up with your primary care provider. Return to the emergency department immediately if your symptoms worsen or if you develop any dizziness, shortness of breath, difficulty breathing, chest pain, blurry vision, loss of vision, nausea, vomiting, abdominal pain, fever, chills, back pain, or any other complaints. Eros un seguimiento con galo proveedor de atenci?n primaria. Regrese al departamento de emergencias inmediatamente si marilyn s?ntomas empeoran o si presenta mareos, dificultad para respirar, dificultad para respirar, dolor en el pecho, visi?n borrosa, p?rdida de la visi?n, n?useas, v?mitos, dolor abdominal, fiebre, escalofr?os, dolor de espalda o cualquier otras quejas. Prescriptions: New cyclobenzaprine 5 mg tablet 5 mg PO TID PRN (Reason: back pain) 7 Days Qty: 21 0RF No Action cephalexin 500 mg capsule 500 mg PO QID 7 Days Qty: 28 0RF doxycycline hyclate 100 mg tablet 100 mg PO BID 7 Days Qty: 14 0RF cetirizine 10 mg tablet 10 mg PO DAILY PRN (Reason: allergy symptoms) Qty: 30 0RF triamcinolone acetonide 0.1 % ointment 1 appl topical TID Qty: 80 0RF hydroxyzine HCl 25 mg tablet 25 mg PO QID PRN (Reason: itching) Qty: 30 0RF pimecrolimus 1 % cream 1 appl topical DAILY Qty: 60 0RF prednisone 20 mg tablet 20 mg PO DAILY Qty: 7 0RF Trulicity 4.5 mg/0.5 mL pen injector subcut QWEEK cholecalciferol (vitamin D3) 25 mcg (1,000 unit) tablet 25 mcg PO QAM amlodipine 10 mg tablet 10 mg PO BEDTIME quetiapine 25 mg tablet 0 mg PO paroxetine HCl 20 mg tablet 20 mg PO QAM metformin 500 mg tablet extended release 24 hr 1,000 mg PO QAM aspirin 81 mg tablet,delayed release (DR/EC) 81 mg PO QAM acetaminophen 500 mg tablet 500 mg PO Q8H PRN (Reason: pain) Referrals: [facility] [Provider Group] (Call to establish and follow up with a communications specialist.) Name,MD Salomón [Primary Care Provider] - Interventions: ED Discharge Assessment Last Done: 02/05/23 17:47 Discharge Date/Time: 02/05/23 17:47 Print Language: Kazakh
[2023-02-05 15:43] VITALS: BP 145/43; PULSE 57; RESP 18; TEMP 36.6; O2SAT 98; BMI 30.3
[2023-02-05] MEDS: Ketorolac Tromethamine 15 MG/ML VIAL IM (17:36)
[2023-02-05] MEDS: Cyclobenzaprine HCl 5 MG TABLET PO (17:36)
== END 2023-02-05 17:47 | disposition home or self-care (01) ==
PROVIDERS: Emergency Provider Emergency Medicine; PCP Internal Medicine Geriatric Medicine
DX: M54.41 Lumbago with sciatica, right side (principal)
CPT/HCPCS: 72100; 96372; 99283; 99284; J1885

== ENCOUNTER 2023-04-10 10:18 | Outpatient (AMB) | payer OTHER, SELFPAY ==
[2023-04-10 10:23] VITALS: BMI 29.9
--- NOTE | 2023-04-10 10:23 | A.OFFVIS_ITS ---
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 Pt states she has burning and itching. Pt has an JOSELIN bandage as compression. Pt also states she has shooting pain from her back that shoots down the back of her leg. STates she has a large VV cluster on her calf and the inner thigh. 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 Complaints include pain over varicosities, swelling of lower extremities, cramping, fatigue, and heaviness of the lower extremities. It has been affecting there daily activities including walking. It is noted more so in right leg. Of note she is a nonsmoker but is a diabetic Patient denies any previous venous surgery or injections. Patient denies any history of DVT/ PE. Patient denies any history of phlebitis. Trial of compression includes - [id number] They now present for vascular evaluation regarding their varicose veins. [facility] Medical History Diabetes Hypertension Social History Alcohol intake: never Patient Tobacco Use Status: Never used Tobacco Review of Systems Const Reports as per HPI ENT Reports no additional complaints Card Denies chest pain, Denies chest pain at rest and Denies chest pain with activity Resp Denies chest congestion and Denies cough GI Reports no additional complaints Musc Details: pain over varicosities, aching of lower extremities, swelling, cramping, he aviness and tiredness, itching Denies abnormal gait Skin/Breast Reports pruritus and Denies wounds Neuro Reports no additional complaints and Denies abnormal gait Psych Denies no additional complaints Physical Exam Vital Signs: BMI result Body Mass Index 29.9 Const General: cooperative, healthy appearing and comfortable Orientation/consciousness: oriented to person, oriented to place and oriented to time Neck Carotids: no bruits Chest Chest palpation & inspection: normal inspection of the chest and normal pal pation of entire chest wall Resp Effort & Inspection: normal respiratory effort and able to speak in complete sentences Cardio Rate: regular rate Heart sounds: S1 normal heart sound present and S2 normal heart sound present Peripheral pulses: Peripheral pulses 2+ throughout GI Inspection: Yes normal to inspection Skin Other: +2 edema, large rope-like varicosities greater than 4 mm right thigh CEAP Classification C4 - skin color changes Ep - Etiology Primary As - superficial veins P - reflux General skin exam: dry skin Neuro General: oriented to person, oriented to place and oriented to time Extrem Right lower extremity: full ROM, normal capillary refill and edema Left lower extremity: full ROM, normal capillary refill and edema Psych Mental Status: mental status grossly normal Assessment & Plan Assessment & Plan (1) Varicose veins of right lower extremity with inflammation: Code(s): I83.11 - Varicose veins of right lower extremity with inflammation Plan: In short, the patient has evidence of venous insufficiency. I have discussed the pathophysiology with the patient. In addition I have provided informational material regarding venous disease to the patient. We have discussed conservative measures including compression, elevation, and exercise. I have also provided a handout regarding appropriate use of compression stockings and where to purchase good compression stockings as well. I have taken the liberty of ordering venous insufficiency testing with the patient. They will follow up with me after testing. The patient had an opportunity to ask questions regarding the treatment plan. All questions were answered. Imaging studies, laboratory studies and physical exam results were discussed and reviewed in detail. No major barriers to understanding were identified. The patient expressed understanding and agreement with the above treatment plan. The patient is aware they should contact our office by phone for worsening of the current condition or the appearance of new symptoms. Thank you for allowing me to participate in the vascular care of this patient. If you have any questions or concerns regarding the treatment for the above condition please do not hesitate to contact me. The office telephone contact is [phone]. This note is constructed using voice recognition software. While every effort has been made to ensure accuracy, client support administrator errors may have been included. Thank you for allowing me to participate in the care of your patient. Yours sincerely, Anthony Armstrong MD, FACS, R.P.V.I. Orders: Orders US venous duplex LE BI 1 Week I83.11 - Varicose veins of right lower extremity with inflammation Coding Level of Care Code New Pt Level 4 (69986) Diagnoses Varicose veins of right lower extremity with inflammation I83.11
== END 2023-04-10 11:00 | disposition home or self-care (01) ==
PROVIDERS: PCP Internal Medicine Geriatric Medicine; Visit Provider Surgery Vascular Surgery
DX: I83.11 Varicose veins of right lower extremity with inflammation (principal)
CPT/HCPCS: 99203

== ENCOUNTER → 2023-04-10 10:18 | Outpatient (BNVA) | payer OTHER, SELFPAY | PROVIDERS: PCP Internal Medicine Geriatric Medicine; Visit Provider Surgery Vascular Surgery | DX: I83.11 Varicose veins of right lower extremity with inflammation (principal) | CPT/HCPCS: 99202 ==

== ENCOUNTER 2023-04-24 08:43 | Outpatient (REF) | payer OTHER, SELFPAY ==
--- NOTE | ~2023-04-24 | US_ITS ---
EXAMINATION: US LOWER EXTREMITY VENOUS (REFLUX EXAM), BILATERAL CLINICAL INDICATION: Varicose veins COMPARISON: None. TECHNIQUE: Color flow triplex imaging and compression Doppler was performed to evaluate both the deep and the superficial systems bilaterally. To evaluate the superficial system, the examination was performed in the upright position. Color-flow Doppler ultrasound and compression ultrasound were utilized. In addition, maneuvers were utilized to demonstrate reflux. FINDINGS: 1. DEEP VENOUS ULTRASOUND OF THE RIGHT LOWER EXTREMITY: Common Femoral Vein: Compressible, normal respiratory variation and augmented flow. Femoral Vein: Compressible, normal color flow and augmentation. Popliteal Vein: Compressible, normal augmentation. Deep Reflux: There is no evidence of reflux in the deep system in either the common femoral vein, superficial femoral or the popliteal vein. There is no evidence of a Flores's cyst. 2. SUPERFICIAL ULTRASOUND WITH DOPPLER OF RIGHT LOWER EXTREMITY: GREAT SAPHENOUS VEIN: Saphenofemoral Junction: 0.5 cm; Reflux: 0 ms Proximal Thigh: 0.2 cm; Reflux: 0 ms Mid Thigh: Not visualized Above Knee: 0.2 cm; Reflux: 1292 ms At Knee: 0.2 cm; Reflux: 0 ms Below Knee: 0.2 cm; Reflux: 0 ms Mid Calf: 0.2 cm; Reflux: 0 ms Ankle: 0.2 cm; Reflux: 0 ms DUPLICATED MEDIAL GREAT SAPHENOUS VEIN: Diameter: None imaged Reflux: NA DUPLICATED LATERAL GREAT SAPHENOUS VEIN: Diameter: None imaged Reflux: NA SMALL SAPHENOUS VEIN: Proximal: 0.2 cm; Reflux: 0 ms Distal: 0.2 cm; Reflux: 0 ms VEIN OF GIACOMINI: Size: NA Reflux: NA PERFORATORS: Location: None imaged Size: NA Reflux: NA VARICOSITIES: Location: Multiple calf Size: 0.5 cm Reflux: 2226-6990 ms 3. DEEP VENOUS ULTRASOUND OF THE LEFT LOWER EXTREMITY: Common Femoral Vein: Compressible, normal respiratory variation and augmented flow. Femoral Vein: Compressible, normal color flow and augmentation. Popliteal Vein: Compressible, normal augmentation. Deep Reflux: There is no evidence of reflux in the deep system in either the common femoral vein, superficial femoral or the popliteal vein. There is no evidence of a Flores's cyst. 4. SUPERFICIAL ULTRASOUND WITH DOPPLER OF LEFT LOWER EXTREMITY: GREAT SAPHENOUS VEIN: Saphenofemoral Junction: 0.5 cm; Reflux: 0 ms Proximal Thigh: 0.5 cm; Reflux: 0 ms Mid Thigh: 0.3 cm; Reflux: 0 ms Above Knee: 0.3 cm; Reflux: 0 ms At Knee: 0.3 cm; Reflux: 0 ms Below Knee: 0.3 cm; Reflux: 0 ms Mid Calf: 0.2 cm; Reflux: 0 ms Ankle: 0.2 cm; Reflux: 0 ms DUPLICATED MEDIAL GREAT SAPHENOUS VEIN: Diameter: None imaged Reflux: NA DUPLICATED LATERAL GREAT SAPHENOUS VEIN: Proximal: 0.2 cm; Reflux: 0 ms Distal: 0.2 cm; Reflux: 0 ms SMALL SAPHENOUS VEIN: Proximal: 0.2 cm; Reflux: 0 ms Distal: 0.2 cm; Reflux: 2828 ms VEIN OF GIACOMINI: Size: NA Reflux: NA PERFORATORS: Location: None imaged Size: NA Reflux: NA VARICOSITIES: Location: Proximal thigh Size: 0.4 cm Reflux: NA US/US venous duplex LE BI IMPRESSION: 1. Segmental reflux in the right great saphenous vein above the knee. 2. Severe reflux in the left small saphenous vein distally. 3. Bilateral refluxing varicosities.
== END 2023-04-24 08:44 | disposition home or self-care (01) ==
LOC: HO.US 08:43
PROVIDERS: PCP Internal Medicine Geriatric Medicine; Visit Provider Surgery Vascular Surgery
DX: I83.11 Varicose veins of right lower extremity with inflammation (principal)
CPT/HCPCS: 93970

== ENCOUNTER 2023-04-29 08:00 | Outpatient (RCR) | payer OTHER, SELFPAY | END 2023-05-15 14:29 | disposition home or self-care (01) | LOC: HO.PT 08:00 | PROVIDERS: PCP Internal Medicine Geriatric Medicine; Visit Provider Internal Medicine Geriatric Medicine | DX: M54.31 Sciatica, right side (principal) | CPT/HCPCS: 97110; 97162; 97530 ==

== ENCOUNTER 2023-04-29 09:50 | Outpatient (AMB) | payer OTHER, SELFPAY ==
--- NOTE | 2023-04-29 09:58 | MHC.OFFVIS ---
Intake Vital Signs 04/29/23 10:06 Height 4 ft 11 in Weight 148 lb 8 oz BMI 30.0 BP 175/78 H Blood Pressure Location Lt brachial Position Sitting Respiration 16 Pulse 88 Pulse Source Pulse Oximeter Intake Visit Reasons: SCIATICA RIGHT SIDE/no answer Allergies Crustaceans Allergy (Severe, Uncoded 04/10/23 10:30) ANAPHYLAXIS HPI HPI Comments History of Present Illness Details Mary is a very pleasant 69-year-old female who presented to the office today, accompanied by her granddaughter, for evaluation management of her lower back pain with radiation down the right leg. Patient's granddaughter assisted with Czech interpretation per patient's request. Patient has been suffering with this pain for approximately 3 months, without inciting injury. She is currently attending physical therapy with minimal improvement of her pain. She takes Tylenol and muscle relaxers with some improvement of her pain. Patient reports pain to the right lower back radiating down the right leg to the toes, she describes the pain as shooting, tingling with associated numbness of the right lower leg. Patient had recent x-ray which was reviewed, results as per below. Pain today is rated as a 5/10, constant throughout the day. Patient denies red flag symptoms including new loss of bowel, bladder or saddle anesthesia. In terms of muscle damage condition is described as shooting, throbbing, numbness, tingling, pins and needles. Pain is negatively impacting patient's enjoyment of life, normal work, mood, activity, sleep and walking. Patient is known diabetic, taking metformin and Trulicity. Most recent A1c January of 2023 was 10.6. The patient has been taking her medications as prescribed. They report her fasting blood sugar this morning was 132. Patient has never been evaluated by endocrinology, her primary care doctor is managing her diabetes. Family reports that they have been to a adult crossing guard and they have been trying to change the patient's diet utilize the tools they were provided. [facility] Medical History Diabetes Hypertension Social History Alcohol intake: never Patient Tobacco Use Status: Never used Tobacco Review of Systems Const All systems reviewed & are unremarkable except as noted in HPI and below Physical Exam Vital Signs: Last Vital Signs Pulse 88 04/29/23 10:06 Resp 16 04/29/23 10:06 BP 175/78 H 04/29/23 10:06 BMI result Body Mass Index 30.0 General: awake, alert, oriented. Answers questions appropriately. Fully engaged in examination. Skin: warm, dry, intact HEENT: Normocephalic. Hearing intact. Cardiac: External chest normal in appearance. Respiratory: No cough, audible wheezing or stridor. Abdomen: without gross distension. MS: No obvious swelling or deformities. Able to transition from sit to stand unassisted. Ambulates with cane Strength 5/5 BLE SLR with and without dorsiflexion positive on right ROM intact, pain with extension Neurological: Oriented to person, place, time and situation. Thought process intact. Psychiatric: Appropriate mood and affect. Good judgment and insight. Results Reviewed Results Reviewed: XR/XR lumbar spine 2-3V FINDINGS: No evidence of acute compression deformity or traumatic subluxation. Moderate to severe intervertebral disc height loss and facet arthropathy at L4-L5 and L5-S1 leading to certain degree of neural foraminal encroachment. Prominent multilevel anterior osteophytes. SI joints are symmetric. No significant paraspinal soft tissue abnormality. Scattered vascular calcifications. IMPRESSION: 1. No acute compression deformity or malalignment. 2. Moderate to severe lumbar spondylosis, more prominent at L4-L5 and L5-S1 leading to neural foraminal encroachment. Further evaluation with an MRI could be obtained as clinically deemed appropriate. Assessment & Plan Assessment & Plan (1) Diabetes: Code(s): E11.9 - Type 2 diabetes mellitus without complications (2) Lumbar radiculopathy: Code(s): M54.16 - Radiculopathy, lumbar region (3) Lumbar spondylosis: Code(s): M47.816 - Spondylosis without myelopathy or radiculopathy, lumbar region (4) Varicose veins of leg with pain: Code(s): I83.819 - Varicose veins of unspecified lower extremity with pain Plan Common is a very pleasant 77-year-old female who presented to the office today, accompanied by her granddaughter, for evaluation and management of her right lower back pain with radiculopathy. History, physical exam and provocative testing consistent with lumbar radiculopathy. MRI without contrast of the lumbar spine ordered for further evaluation Lidocaine patches 5% apply to most painful area, on for 12 hours, off 12 hours. Continue with physical therapy as planned Will recheck hemoglobin A1c, most recent from January 2023 was 10.6. Lengthy discussion with patient and her granddaughter regarding options for treatment. They are the aware that given her uncontrolled blood sugars and significantly elevated A1c options are limited. Pending the MRI she would be a potential candidate for epidural steroid injection however with A1c of 10.6 we could not offer steroid injections at this time. Other options including implantable devices are also off the table given elevated blood sugars and A1c put patient at very high risk for infection. Patient was advised to follow-up with her primary care doctor regarding her uncontrolled diabetes and consider requesting referral to endocrinology for evaluation and treatment. Offered referral to retail sales merchandiser and adult crossing guard but patient and family declined at this time, stating they recently attended a visit with a retail sales merchandiser and then been working to improve the patient's diet with the tools that there provided. All questions and concerns were addressed during the visit, patient and granddaughter verbalized understanding of the plan. Follow-up in the office after MRI, sooner if needed Orders: Orders MR lumbar spine wo con Today M47.816 - Spondylosis without myelopathy or radiculopathy, lumbar region, M54.16 - Radiculopathy, lumbar region Hemoglobin A1c Today E11.9 - Type 2 diabetes mellitus without complications Medications: New lidocaine 5% leave on most painful area for up to 12 hrs 1 patch topical DAILY 30 ea 1RF Coding Level of Care Code New Pt Level 4 (57400) Diagnoses Diabetes E11.9 Lumbar radiculopathy M54.16 Lumbar spondylosis M47.816 Varicose veins of leg with pain I83.819
[2023-04-29 10:06] VITALS: BP 175/78; PULSE 88; RESP 16
== END 2023-04-29 10:48 | disposition home or self-care (01) ==
PROVIDERS: PCP Internal Medicine Geriatric Medicine; Visit Provider Registered Nurse Emergency
DX: E11.9 Type 2 diabetes mellitus without complications (principal); M54.16 Radiculopathy, lumbar region; M47.816 Spondylosis without myelopathy or radiculopathy, lumbar region; I83.819 Varicose veins of unspecified lower extremity with pain
CPT/HCPCS: 99204

== ENCOUNTER → 2023-04-29 09:50 | Outpatient (BNVA) | payer OTHER, SELFPAY | PROVIDERS: PCP Internal Medicine Geriatric Medicine; Visit Provider Registered Nurse Emergency ==

== ENCOUNTER 2023-04-29 10:40 | Outpatient (REF) | payer OTHER, SELFPAY ==
[2023-04-29 13:43] LABS: Estimated Average Glucose 220 mg/dL; Hemoglobin A1c % 9.3 % (<6.0)
== END 2023-04-29 10:41 | disposition home or self-care (01) ==
LOC: HO.10HDL 10:40
PROVIDERS: Visit Provider Registered Nurse Emergency
DX: E11.9 Type 2 diabetes mellitus without complications (principal); M47.816 Spondylosis without myelopathy or radiculopathy, lumbar region; M54.16 Radiculopathy, lumbar region; I83.819 Varicose veins of unspecified lower extremity with pain
CPT/HCPCS: 36415; 83036; 99202

== ENCOUNTER 2023-05-15 19:15 | Outpatient (REF) | payer OTHER, SELFPAY | END 2023-05-15 19:16 | disposition home or self-care (01) | LOC: HO.MRI 19:15 | PROVIDERS: PCP Internal Medicine Geriatric Medicine; Visit Provider Registered Nurse Emergency | DX: M47.816 Spondylosis without myelopathy or radiculopathy, lumbar region (principal); M54.16 Radiculopathy, lumbar region | CPT/HCPCS: 72148 ==

== ENCOUNTER → 2023-05-23 08:23 | Outpatient (BNVA) | payer OTHER, SELFPAY | PROVIDERS: PCP Internal Medicine Geriatric Medicine; Visit Provider Registered Nurse Emergency | DX: M47.26 Other spondylosis with radiculopathy, lumbar region (principal); E11.9 Type 2 diabetes mellitus without complications | CPT/HCPCS: 99212 ==

== ENCOUNTER 2023-05-23 08:36 | Outpatient (AMB) | payer OTHER, SELFPAY ==
--- NOTE | 2023-05-23 08:44 | MHC.OFFVIS ---
Intake Vital Signs 05/23/23 08:45 Height 4 ft 11 in Weight 138 lb 4 oz BMI 27.9 BP 145/77 H Blood Pressure Location Lt brachial Position Sitting Respiration 16 Pulse 70 Pulse Source Pulse Oximeter Pulse Oximetry (%) 97 Oxygen Delivery Method Room Air Intake Visit Reasons: MRI Results Allergies Crustaceans Allergy (Severe, Uncoded 04/10/23 10:30) ANAPHYLAXIS HPI HPI Comments History of Present Illness Details Mary returns to the office today, accompanied by her daughter, for follow up and review of recent MRI. MRI reviewed with patient and daughter, results as per below. Repeat A1c 04/19/23 was 9.3. Patient has been working diligently to get her blood sugars under control. They are aware that we cannot give steroid injection for her lumbar radiculopathy with current A1c. She continues with right lower back pain radiating down right leg to the foot. Her pcp started her on Tramadol twice daily, daughter states she gives it to her only as needed when the pain is very bad. They have been using lidocaine patches with some improvement in her pain as well. Prior: Mary is a very pleasant 77-year-old female who presented to the office today, accompanied by her granddaughter, for evaluation management of her lower back pain with radiation down the right leg. Patient's granddaughter assisted with French interpretation per patient's request. Patient has been suffering with this pain for approximately 3 months, without inciting injury. She is currently attending physical therapy with minimal improvement of her pain. She takes Tylenol and muscle relaxers with some improvement of her pain. Patient reports pain to the right lower back radiating down the right leg to the toes, she describes the pain as shooting, tingling with associated numbness of the right lower leg. Patient had recent x-ray which was reviewed, results as per below. Pain today is rated as a 5/10, constant throughout the day. Patient denies red flag symptoms including new loss of bowel, bladder or saddle anesthesia. In terms of muscle damage condition is described as shooting, throbbing, numbness, tingling, pins and needles. Pain is negatively impacting patient's enjoyment of life, normal work, mood, activity, sleep and walking. Patient is known diabetic, taking metformin and Trulicity. Most recent A1c January of 2023 was 10.6. The patient has been taking her medications as prescribed. They report her fasting blood sugar this morning was 132. Patient has never been evaluated by endocrinology, her primary care doctor is managing her diabetes. Family reports that they have been to a research computing specialist and they have been trying to change the patient's diet utilize the tools they were provided. [facility] Medical History Diabetes Hypertension Social History Alcohol intake: never Patient Tobacco Use Status: Never used Tobacco Review of Systems Const All systems reviewed & are unremarkable except as noted in HPI and below Physical Exam Vital Signs: Last Vital Signs Pulse 70 05/23/23 08:45 Resp 16 05/23/23 08:45 BP 145/77 H 05/23/23 08:45 Pulse Ox 97 05/23/23 08:45 Oxygen Delivery Method Room Air 05/23/23 08:45 BMI result Body Mass Index 27.9 General: awake, alert, oriented. Answers questions appropriately. Fully engaged in examination. Skin: warm, dry, intact HEENT: Normocephalic. Hearing intact. Cardiac: External chest normal in appearance. Respiratory: No cough, audible wheezing or stridor. Abdomen: without gross distension. MS: No obvious swelling or deformities. Able to transition from sit to stand unassisted. Strength 5/5 BLE SLR with and without dorsiflexion positive on right Tenderness over lumbar paraspinal muscles Neurological: Oriented to person, place, time and situation. Thought process intact. Ambulates with cane Psychiatric: Appropriate mood and affect. Good judgment and insight. Results Reviewed Results Reviewed: 05/15/2023 MR/MR lumbar spine wo con FINDINGS: Motion degraded lumbar spine MRI. There is transitional anatomy. For the purposes of this report S1 is lumbarized, sharing a rudimentary disc with S2 and pseudoarticulations with the sacrum bilaterally. There are hypoplastic ribs versus articulating transverse processes at L1. Please correlate with plain films prior to any percutaneous or surgical intervention. Vertebral body heights are overall maintained. There is no bone marrow edema. There are no acute fractures. Modic type II endplate signal changes at L5-S1. Multilevel endplate osteophytes. Conus terminates at the L1 level. L1-L2: There is mild bilateral facet arthropathy. No central canal stenosis and no foraminal stenosis. L2-L3: Slight annular disc bulge. There is no central canal stenosis and there is no foraminal stenosis. L3-L4: Disc contour is normal. Mild bilateral facet arthropathy. No central canal stenosis and no foraminal stenosis. L4-L5: Diffuse annular disc bulge and mild bilateral facet arthropathy. No central canal stenosis and no foraminal stenosis. L5-S1: A right paracentral disc protrusion compresses the traversing right S1 nerve root within the right subarticular zone on image 23 of series 6. Background annular disc bulge and moderate bilateral facet arthropathy. Mild bilateral foraminal encroachment. Disc contacts the traversing left S1 nerve root within the left subarticular zone as well. At the transitional S1-S2 level, the posterior disc contour is normal and there is no central canal stenosis nor significant foraminal stenosis. IMPRESSION: There is transitional anatomy. For the purposes of this report S1 is lumbarized, sharing a rudimentary disc with S2 and pseudoarticulations with the sacrum bilaterally. There are hypoplastic ribs versus articulating transverse processes at L1. Please correlate with plain films prior to any percutaneous or surgical intervention. At L5-S1, a right paracentral disc protrusion compresses the traversing right S1 nerve root within the right subarticular zone on image 23 of series 6. Disc contacts the traversing left S1 nerve root within the left subarticular zone as well. 02/05/2023 XR/XR lumbar spine 2-3V FINDINGS: No evidence of acute compression deformity or traumatic subluxation. Moderate to severe intervertebral disc height loss and facet arthropathy at L4-L5 and L5-S1 leading to certain degree of neural foraminal encroachment. Prominent multilevel anterior osteophytes. SI joints are symmetric. No significant paraspinal soft tissue abnormality. Scattered vascular calcifications. IMPRESSION: 1. No acute compression deformity or malalignment. 2. Moderate to severe lumbar spondylosis, more prominent at L4-L5 and L5-S1 leading to neural foraminal encroachment. Further evaluation with an MRI could be obtained as clinically deemed appropriate. Assessment & Plan Assessment & Plan (1) Diabetes: Code(s): E11.9 - Type 2 diabetes mellitus without complications (2) Lumbar radiculopathy: Code(s): M54.16 - Radiculopathy, lumbar region (3) Lumbar spondylosis: Code(s): M47.816 - Spondylosis without myelopathy or radiculopathy, lumbar region Plan Mary is a very pleasant 77-year-old female who presented to the office today, accompanied by her daughter, for follow up and review of recent MRI. MRI LS reviewed with patient, results as per above. Lengthy discussion with patient and her daughter regarding options for treatment. They are the aware that given her uncontrolled blood sugars and significantly elevated A1c options are limited. Unable to offer LORI at this time as her most recent A1c was 9.3 04/29/2023. Advised of risks associated with steroid injections in patients with elevated A1c, patient has undergone steroid injection to the knee in the past and did not tolerate the increase blood sugars well after. Daughter does not want patient to suffer like that again, will hold on LORI until A1c is better controlled. C/W lidocaine patches as needed, refill sent. C/W Tramadol as prescribed by PCP. Discussed options for alternative medications, advised that Gabapentin or muscle relaxer may provide some pain relief but side effects put patient at increased risk for fall/injury. Granddaughter declines additional medication at this time. She has appt with pcp today, they will request repeat A1c in 2 months. Will contact our office if pcp is not going to order the repeat A1c and an order will be placed. All questions and concerns were addressed during the visit, patient and daughter verbalized understanding of the plan. Follow-up in the office in 2 months after recheck of A1c, sooner if needed Medications: Refilled lidocaine 5% leave on most painful area for up to 12 hrs 1 patch topical DAILY 30 ea 3RF Coding Level of Care Code Est Pt Level 3 (65664) Diagnoses Diabetes E11.9 Lumbar radiculopathy M54.16 Lumbar spondylosis M47.816
[2023-05-23 08:45] VITALS: BP 145/77; PULSE 70; RESP 16; O2SAT 97; BMI 27.9
== END 2023-05-23 09:06 | disposition home or self-care (01) ==
PROVIDERS: PCP Internal Medicine Geriatric Medicine; Visit Provider Registered Nurse Emergency
DX: E11.9 Type 2 diabetes mellitus without complications (principal); M54.16 Radiculopathy, lumbar region; M47.816 Spondylosis without myelopathy or radiculopathy, lumbar region
CPT/HCPCS: 99213

== ENCOUNTER 2023-05-28 08:39 | Outpatient (REF) | payer OTHER, SELFPAY ==
[2023-05-28 10:07] LABS: Anion Gap 13 (12-20); Blood Urea Nitrogen 12 mg/dL (9-16); Calcium 9.4 mg/dL (8.4-10.2); Carbon Dioxide 30 mmol/L (22-29); Chloride 100 mmol/L (96-108); Estimated Glomerular Filt Rate 52; Glucose Random 188 mg/dL (60-115); Potassium 3.8 mmol/L (3.3-5.1); Sodium 139 mmol/L (135-145)
[2023-05-28 10:20] LABS: Creatinine Urine 34.38 mg/dL; Microalbum/Creatinine Ratio Ur 75.6 ug/mg cr (<30)
[2023-05-28 11:44] LABS: Cholesterol 106 mg/dL (<200); HDL Cholesterol 47 mg/dL (>40); LDL Cholesterol Calculated 37 mg/dL (<100); Triglycerides 111 mg/dL (<150)
== END 2023-05-28 08:40 | disposition home or self-care (01) ==
LOC: HO.LAB 08:39
PROVIDERS: PCP Internal Medicine Geriatric Medicine; Visit Provider Internal Medicine Geriatric Medicine
DX: E11.69 Type 2 diabetes mellitus with other specified complication (principal); E11.65 Type 2 diabetes mellitus with hyperglycemia
CPT/HCPCS: 36415; 80048; 80061; 82043; 82570

== ENCOUNTER 2023-06-03 08:46 | Outpatient (AMB) | payer OTHER, SELFPAY ==
[2023-06-03 09:06] VITALS: BMI 28.9
--- NOTE | 2023-06-03 09:06 | MHC.OFFVIS ---
Intake Vital Signs 06/03/23 09:06 Height 4 ft 11 in Weight 143 lb BMI 28.9 Intake Visit Reasons: FU US Intake Note: follow up US 04/24/23 for Right LE VV w/ burning and itching, has tried compression methods, not socks. States she has a large cluster on her calf and inner thigh Accompanied by: Daughter Allergies Crustaceans Allergy (Severe, Uncoded 06/03/23 09:12) ANAPHYLAXIS HPI FU US HPI Details Very pleasant 77-year-old female presents for follow-up regarding venous insufficiency. She does have some pain over the varicosities which have been a source of discomfort for her. She reports it is right more so than left. She does also have occasional leg swelling. She has been compliant with compression and now presents for follow-up with venous insufficiency testing. [facility] Medical History Diabetes Hypertension Social History Alcohol intake: never Patient Tobacco Use Status: Never used Tobacco Review of Systems Const Reports as per HPI ENT Reports no additional complaints Card Denies chest pain, Denies chest pain at rest and Denies chest pain with activity Resp Denies chest congestion and Denies cough GI Reports no additional complaints Musc Details: pain over varicosities, aching of lower extremities, swelling, cramping, heaviness and tiredness, itching Denies abnormal gait Skin/Breast Reports pruritus and Denies wounds Neuro Reports no additional complaints and Denies abnormal gait Psych Denies no additional complaints Physical Exam Vital Signs: BMI result Body Mass Index 28.9 Const General: cooperative, healthy appearing and comfortable Orientation/consciousness: oriented to person, oriented to place and oriented to time Neck Carotids: no bruits Chest Chest palpation & inspection: normal inspection of the chest and normal palpation of entire chest wall Resp Effort & Inspection: normal respiratory effort and able to speak in complete sentences Cardio Rate: regular rate Heart sounds: S1 normal heart sound present and S2 normal heart sound present Peripheral pulses: Peripheral pulses 2+ throughout GI Inspection: Yes normal to inspection Skin Other: +2 edema, large rope-like varicosities greater than 4 mm bilateral calf CEAP Classification C4 - skin color changes Ep - Etiology Primary As - superficial veins P - reflux General skin exam: dry skin Neuro General: oriented to person, oriented to place and oriented to time Extrem Right lower extremity: full ROM, normal capillary refill and edema Left lower extremity: full ROM, normal capillary refill and edema Psych Mental Status: mental status grossly normal Results Reviewed Results Reviewed: Brief summary of venous insufficiency testing is as follows: right great saphenous vein: negative right small saphenous vein: negative right accessory vein: none present left great saphenous vein: negative left small saphenous vein: negative left accessory vein: none present Please note there is no evidence of any venous aneurysms or significant tortuosity Assessment & Plan Assessment & Plan (1) Varicose veins of right lower extremity with inflammation: Code(s): I83.11 - Varicose veins of right lower extremity with inflammation Plan: This patient has varicose veins with inflammation. They continue to be a source of discomfort for the patient. The patient has tried conservative treatment with compression, leg elevation and exercise program for over 3 months time. They have been compliant with all treatment. This has provided minimal relief for the patient. I do not anticipate this course of treatment will alter the underlying etiology. The patient has been scheduled for lower extremity venous treatment inclusive of --- right lower extremity microphlebectomy. Risks, benefits, and complications of this procedure has been discussed in detail with the patient including but not limited to bleeding, infection, and the development of a DVT. The patient has demonstrated a clear understanding and has consented. We will schedule the patient as soon as possible. Thank you for allowing us to participate in this patient's care. If there are any questions or concerns please do not hesitate to contact us. Coding Level of Care Code Est Pt Level 4 (98129) Diagnoses Varicose veins of right lower extremity with inflammation I83.11
== END 2023-06-03 09:44 | disposition home or self-care (01) ==
PROVIDERS: PCP Internal Medicine Geriatric Medicine; Visit Provider Surgery Vascular Surgery
DX: I83.11 Varicose veins of right lower extremity with inflammation (principal)
CPT/HCPCS: 99214

== ENCOUNTER → 2023-06-03 08:46 | Outpatient (BNVA) | payer OTHER, SELFPAY | PROVIDERS: PCP Internal Medicine Geriatric Medicine; Visit Provider Surgery Vascular Surgery | DX: I83.11 Varicose veins of right lower extremity with inflammation (principal) | CPT/HCPCS: 99212 ==

== ENCOUNTER 2023-07-04 07:23 | Outpatient (AMB) | payer OTHER, SELFPAY ==
[2023-07-04 07:31] VITALS: BMI 28.9
--- NOTE | 2023-07-04 07:31 | MHC.OFFVIS ---
Intake Vital Signs 07/04/23 07:31 Height 4 ft 11 in Weight 143 lb BMI 28.9 Intake Visit Reasons: Right leg micro Allergies Crustaceans Allergy (Severe, Uncoded 06/03/23 09:12) ANAPHYLAXIS [facility] Medical History Diabetes Hypertension Social History Alcohol intake: never Patient Tobacco Use Status: Never used Tobacco Physical Exam Vital Signs: BMI result Body Mass Index 28.9 Office Procedures Vascular Office Procedure Details Details: Diagnosis: Right Leg varicose veins with inflammation Procedure: Right leg Microphlebectomy Anesthesia: Local Infiltration 15 cc, Tumescent: 0 cc. Varicose veins were marked in the standing position on the right leg and the patient was then placed in the prone position. The right lower extremity was prepared and draped to allow knee flexion in the sterile field. The patient had large superficial varicose veins with significant symptoms of pain. It was therefore determined to perform microphlebectomies of the clusters of varicose veins. The patient had bulging varicose veins which were previously marked in the standing position. A small stab incision was made longitudinally directly overlying the varicose vein in the calf and the varicose vein was grasped with a hemostat aided by a vein hook. It was then dissected as far proximally and distally as possible and avulsed. A total of 12 stab incisions were made and the procedure of stab phlebectomies was repeated 12 times. Hemostasis was checked and stab incision sites were closed with steri-strips and sterile dressing was given with gauze and krilex wrap followed by an sushma bandage. There were no complications and blood loss was minimal. Post-Op instructions were given and a follow-up appointment was recommended. [id number] - Phleb Veins, Extrem - up to 20 All charges added?: Procedure code (CPT) selection complete Assessment & Plan Assessment & Plan (1) Varicose veins of right lower extremity with inflammation: Comment: 07/04/2023 - right leg microphlebectomy Code(s): I83.11 - Varicose veins of right lower extremity with inflammation Plan: See above Coding Level of Care Code Procedure Only Diagnoses Varicose veins of right lower extremity with inflammation I83.11 CPT Codes Details - Vascular 5: 35837 - Phleb Veins, Extrem - up to 20 ([id number])
== END 2023-07-04 10:33 | disposition home or self-care (01) ==
PROVIDERS: PCP Internal Medicine Geriatric Medicine; Visit Provider Surgery Vascular Surgery
DX: I83.11 Varicose veins of right lower extremity with inflammation (principal)
CPT/HCPCS: 37765

== ENCOUNTER → 2023-07-04 07:23 | Outpatient (BNVA) | payer OTHER, SELFPAY | PROVIDERS: PCP Internal Medicine Geriatric Medicine; Visit Provider Surgery Vascular Surgery | DX: I83.11 Varicose veins of right lower extremity with inflammation (principal) | CPT/HCPCS: 37765 ==

== ENCOUNTER 2023-07-16 09:05 | Outpatient (AMB) | payer OTHER, SELFPAY ==
--- NOTE | 2023-07-16 09:18 | MHC.OFFVIS ---
Intake Intake Visit Reasons: 2 week follow up right leg micro Intake Note: Patient presents for 2 week follow up right leg micro. States she feels minimal pain. Still has steri strips on leg and would like them removed. Accompanied by: Grand Child Allergies Crustaceans Allergy (Severe, Uncoded 06/03/23 09:12) ANAPHYLAXIS HPI 2 week follow up right leg micro HPI Details Very pleasant 77-year-old female presents for follow-up regarding right leg microphlebectomy. In general reports that the pain and discomfort appear to be doing relatively well. No significant postprocedure complaints. Now for routine follow-up. [facility], [facility] Medical History Diabetes Hypertension Social History Alcohol intake: never Patient Tobacco Use Status: Never used Tobacco Review of Systems Const Reports as per HPI ENT Reports no additional complaints Card Denies chest pain, Denies chest pain at rest and Denies chest pain with activity Resp Denies chest congestion and Denies cough GI Reports no additional complaints Musc Details: pain over varicosities, aching of lower extremities, swelling, cramping, heaviness and tiredness, itching Denies abnormal gait Skin/Breast Reports pruritus and Denies wounds Neuro Reports no additional complaints and Denies abnormal gait Psych Denies no additional complaints Physical Exam Const General: cooperative, healthy appearing and comfortable Orientation/consciousness: oriented to person, oriented to place and oriented to time Neck Carotids: no bruits Chest Chest palpation & inspection: normal inspection of the chest and normal palpation of entire chest wall Resp Effort & Inspection: normal respiratory effort and able to speak in complete sentences Cardio Rate: regular rate Heart sounds: S1 normal heart sound present and S2 normal heart sound present Peripheral pulses: Peripheral pulses 2+ throughout GI Inspection: Yes normal to inspection Skin Other: Patient does have some residual varicosities in the right calf and some varicosities in the left thigh both currently asymptomatic for her. General skin exam: dry skin Neuro General: oriented to person, oriented to place and oriented to time Extrem Right lower extremity: full ROM, normal capillary refill and edema Left lower extremity: full ROM, normal capillary refill and edema Psych Mental Status: mental status grossly normal Assessment & Plan Assessment & Plan (1) Varicose veins of right lower extremity with inflammation: Comment: 07/04/2023 - right leg microphlebectomy Code(s): I83.11 - Varicose veins of right lower extremity with inflammation Plan: In short patient has done extremely well with her right lower extremity microphlebectomy. She may experience some post phlebitic issues and we did discuss conservative measures including warm compresses and use of nonsteroidal anti-inflammatories. At the current time the rest of her varicosities are asymptomatic. Should they become an issue in the future she was requested to reach back out to us. She will follow up with us on an as-needed basis. Thank you for allowing us to assist in her care. If there are any questions or concerns please do not hesitate to contact us. Coding Level of Care Code Est Pt Level 3 (86170) Diagnoses Varicose veins of right lower extremity with inflammation I83.11
== END 2023-07-16 09:54 | disposition home or self-care (01) ==
PROVIDERS: PCP Internal Medicine Geriatric Medicine; Visit Provider Surgery Vascular Surgery
DX: I83.11 Varicose veins of right lower extremity with inflammation (principal)
CPT/HCPCS: 99213

== ENCOUNTER → 2023-07-16 09:05 | Outpatient (BNVA) | payer OTHER, SELFPAY | PROVIDERS: PCP Internal Medicine Geriatric Medicine; Visit Provider Surgery Vascular Surgery | DX: I83.11 Varicose veins of right lower extremity with inflammation (principal) | CPT/HCPCS: 99212 ==

== ENCOUNTER 2023-08-04 13:40 | Outpatient (REF) | payer OTHER, SELFPAY | END 2023-08-04 13:41 | disposition home or self-care (01) | LOC: HO.MAMMO 13:40 | PROVIDERS: PCP Internal Medicine Geriatric Medicine; Visit Provider Internal Medicine Endocrinology, Diabetes & Metabolism | DX: Z12.31 Encounter for screening mammogram for malignant neoplasm of breast (principal) | CPT/HCPCS: 77063; 77067 ==

== ENCOUNTER → 2023-08-04 14:00 | Outpatient (BNV) | payer OTHER, SELFPAY | PROVIDERS: PCP Internal Medicine Geriatric Medicine; Visit Provider Radiology Diagnostic Radiology | DX: Z12.31 Encounter for screening mammogram for malignant neoplasm of breast (principal) | CPT/HCPCS: 77063; 77067 ==

== ENCOUNTER 2023-08-21 08:40 | Outpatient (AMB) | payer OTHER, SELFPAY ==
--- NOTE | 2023-08-21 08:44 | A.OFFVIS_ITS ---
Intake Vital Signs 08/21/23 08:54 Height 4 ft 11 in Weight 140 lb 3 oz BMI 28.3 BP 156/70 H Blood Pressure Location Lt brachial Position Sitting Pulse 65 Pulse Source Pulse Oximeter Pulse Oximetry (%) 98 Oxygen Delivery Method Room Air Intake Visit Reasons: 3 MONTH FOLLOW UP Intake Note: Pain today 11/18 High Speed Operator Required: Yes High Speed Operator Language: Insurance Account Representative Name: daughter Accompanied by: Daughter Allergies Crustaceans Allergy (Severe, Uncoded 06/03/23 09:12) ANAPHYLAXIS HPI HPI Comments History of Present Illness Details Mary returns to the office today, accompanied by her daughter, for follow-up right lower back pain Since last visit patient had repeat A1c, now 8.1 as of July 01, 2023 She also saw vascular and had varicose vein stripped on the right lower leg. Since then the pain has been improved in that area. She continues with tenderness to palpation over the right PSIS with referred pain down the back of her thigh to the level of the knee. The pain is worse with standing, sitting and lying on the affected side. They are leaving tomorrow for a cruise, she was hoping to get an injection before then. No longer being prescribed tramadol for the pain since it has been better after vascular surgery Prior: Mary returns to the office today, accompanied by her daughter, for follow up and review of recent MRI. MRI reviewed with patient and daughter, results as per below. Repeat A1c 04/19/23 was 9.3. Patient has been working diligently to get her blood sugars under control. They are aware that we cannot give steroid injection for her lumbar radiculopathy with current A1c. She continues with right lower back pain radiating down right leg to the foot. Her pcp started her on Tramadol twice daily, daughter states she gives it to her only as needed when the pain is very bad. They have been using lidocaine patches with some improvement in her pain as britta benito Prior: Mary is a very pleasant 77-year-old female who presented to the office today, accompanied by her granddaughter, for evaluation management of her lower back pain with radiation down the right leg. Patient's granddaughter assisted with Fijian interpretation per patient's request. Patient has been suffering with this pain for approximately 3 months, without inciting injury. She is currently attending physical therapy with minimal improvement of her pain. She takes Tylenol and muscle relaxers with some improvement of her pain. Patient reports pain to the right lower back radiating down the right leg to the toes, she describes the pain as shooting, tingling with associated numbness of the right lower leg. Patient had recent x-ray which was reviewed, results as per below. Pain today is rated as a 5/10, constant throughout the day. Patient denies red flag symptoms including new loss of bowel, bladder or saddle anesthesia. In terms of muscle damage condition is described as shooting, throbbing, numbness, tingling, pins and needles. Pain is negatively impacting patient's enjoyment of life, normal work, mood, activity, sleep and walking. Patient is known diabetic, taking metformin and Trulicity. Most recent A1c January of 2023 was 10.6. The patient has been taking her medications as prescribed. They report her fasting blood sugar this morning was 132. Patient has never been evaluated by endocrinology, her primary care doctor is managing her diabetes. Family reports that they have been to a senior applications engineer and they have been trying to change the patient's diet utilize the tools they were provided. [facility] Medical History Diabetes Hypertension Social History Alcohol intake: never Patient Tobacco Use Status: Never used Tobacco Review of Systems Const All systems reviewed & are unremarkable except as noted in HPI and below Physical Exam Vital Signs: Last Vital Signs Pulse 65 08/21/23 08:54 BP 156/70 H 08/21/23 08:54 Pulse Ox 98 08/21/23 08:54 Oxygen Delivery Method Room Air 08/21/23 08:54 BMI result Body Mass Index 28.3 General: awake, alert, oriented. Answers questions appropriately. Fully engaged in examination. Skin: warm, dry, intact HEENT: Normocephalic. Hearing intact. Cardiac: External chest normal in appearance. Respiratory: No cough, audible wheezing or stridor. Abdomen: without gross distension. MS: No obvious swelling or deformities. Able to transition from sit to stand unassisted. Strength 5/5 BLE SLR negative bilaterally Tenderness over lumbar paraspinal muscles Tenderness to palpation over right PSIS Thigh thrust positive on the right Gaenslen positive on the right SI compression positive Neurological: Oriented to person, place, time and situation. Thought process intact. Psychiatric: Appropriate mood and affect. Good judgment and insight. Results Reviewed Results Reviewed: 05/15/2023 MR/MR lumbar spine wo con FINDINGS: Motion degraded lumbar spine MRI. There is transitional anatomy. For the purposes of this report S1 is lumbarized, sharing a rudimentary disc with S2 and pseudoarticulations with the sacrum bilaterally. There are hypoplastic ribs versus articulating transverse processes at L1. Please correlate with plain films prior to any percutaneous or surgical intervention. Vertebral body heights are overall maintained. There is no bone marrow edema. There are no acute fractures. Modic type II endplate signal changes at L5-S1. Multilevel endplate osteophytes. Conus terminates at the L1 level. L1-L2: There is mild bilateral facet arthropathy. No central canal stenosis and no foraminal stenosis. L2-L3: Slight annular disc bulge. There is no central canal stenosis and there is no foraminal stenosis. L3-L4: Disc contour is normal. Mild bilateral facet arthropathy. No central canal stenosis and no foraminal stenosis. L4-L5: Diffuse annular disc bulge and mild bilateral facet arthropathy. No central canal stenosis and no foraminal stenosis. L5-S1: A right paracentral disc protrusion compresses the traversing right S1 nerve root within the right subarticular zone on image 23 of series 6. Background annular disc bulge and moderate bilateral facet arthropathy. Mild bilateral foraminal encroachment. Disc contacts the traversing left S1 nerve root within the left subarticular zone as well. At the transitional S1-S2 level, the posterior disc contour is normal and there is no central canal stenosis nor significant foraminal stenosis. IMPRESSION: There is transitional anatomy. For the purposes of this report S1 is lumbarized, sharing a rudimentary disc with S2 and pseudoarticulations with the sacrum bilaterally. There are hypoplastic ribs versus articulating transverse processes at L1. Please correlate with plain films prior to any percutaneous or surgical intervention. At L5-S1, a right paracentral disc protrusion compresses the traversing right S1 nerve root within the right subarticular zone on image 23 of series 6. Disc contacts the traversing left S1 nerve root within the left subarticular zone as well. 02/05/2023 XR/XR lumbar spine 2-3V FINDINGS: No evidence of acute compression deformity or traumatic subluxation. Moderate to severe intervertebral disc height loss and facet arthropathy at L4-L5 and L5-S1 leading to certain degree of neural foraminal encroachment. Prominent multilevel anterior osteophytes. SI joints are symmetric. No significant paraspinal soft tissue abnormality. Scattered vascular calcifications. IMPRESSION: 1. No acute compression deformity or malalignment. 2. Moderate to severe lumbar spondylosis, more prominent at L4-L5 and L5-S1 leading to neural foraminal encroachment. Further evaluation with an MRI could be obtained as clinically deemed appropriate. Assessment & Plan Assessment & Plan (1) Diabetes: Code(s): E11.9 - Type 2 diabetes mellitus without complications (2) Lumbar radiculopathy: Code(s): M54.16 - Radiculopathy, lumbar region (3) Lumbar spondylosis: Code(s): M47.816 - Spondylosis without myelopathy or radiculopathy, lumbar region (4) Sacroiliac joint dysfunction of right side: Code(s): M53.3 - Sacrococcygeal disorders, not elsewhere classified Plan Mary is a very pleasant 78-year-old female who presented to the office today, accompanied by her daughter, for follow up right lower back pain History, physical exam and provocative testing consistent with right sacroiliac joint dysfunction Lengthy discussion with patient and her daughter regarding options for treatment. She is exhausted conservative therapy including greater than 6 months of PT, nonsteroidal anti-inflammatory medications, prescription medications, muscle relaxers and topical patches without improvement of her pain. Methocarbamol 500 mg p.o. 3 times daily as needed Will schedule for fluoroscopy guided right diagnostic sacroiliac joint injection with local anesthetic. All questions and concerns were addressed during the visit, patient and daughter verbalized understanding of the plan. Follow-up in the office after injection, sooner if needed Medications: New methocarbamol No driving while taking this medication. Do no take with alcohol or other POLLS OR SURVEYS INTERVIEWER Depressants 500 mg PO TID PRN 30 tabs 0RF muscle spasm Coding Level of Care Code Est Pt Level 3 (25480) Diagnoses Diabetes E11.9 Lumbar radiculopathy M54.16 Lumbar spondylosis M47.816 Sacroiliac joint dysfunction of right side M53.3
[2023-08-21 08:54] VITALS: BP 156/70; PULSE 65; O2SAT 98; BMI 28.3
== END 2023-08-21 09:23 | disposition home or self-care (01) ==
PROVIDERS: PCP Internal Medicine Geriatric Medicine; Visit Provider Registered Nurse Emergency
DX: E11.9 Type 2 diabetes mellitus without complications (principal); M54.16 Radiculopathy, lumbar region; M47.816 Spondylosis without myelopathy or radiculopathy, lumbar region; M53.3 Sacrococcygeal disorders, not elsewhere classified
CPT/HCPCS: 99213

== ENCOUNTER → 2023-08-21 08:40 | Outpatient (BNVA) | payer OTHER, SELFPAY | PROVIDERS: PCP Internal Medicine Geriatric Medicine; Visit Provider Registered Nurse Emergency | DX: M47.26 Other spondylosis with radiculopathy, lumbar region (principal); M53.3 Sacrococcygeal disorders, not elsewhere classified; E11.9 Type 2 diabetes mellitus without complications | CPT/HCPCS: 99212 ==

== ENCOUNTER 2023-09-23 07:06 | Outpatient (REF) | payer OTHER, SELFPAY ==
--- NOTE | ~2023-09-23 | FL_ITS ---
EXAMINATION: XR FLUOROSCOPY WITH IMAGES CLINICAL INFORMATION: Sacrococcygeal disorders. COMPARISON: None available. TECHNIQUE: Fluoroscopy Supervised By: Dr. Damian Alicea. Fluoroscopy Time: 0.1 minute. Cumulative Dose: 0.836 mGy. DAP: 0.0145 Gycm2. Images: 1. FINDINGS: Intraoperative fluoroscopy and spot films were performed during a procedure in the OR. Needle seen overlying the right SI joint with contrast injected within the joint. Please see Dr. Damian Alicea's report for complete details. FL/FL guidance in treatment room IMPRESSION: Intraoperative fluoroscopy and spot films were obtained. Please see Dr. Damian Alicea's report for complete details.
== END 2023-09-23 07:07 | disposition home or self-care (01) ==
LOC: CF 07:06
PROVIDERS: PCP Internal Medicine Geriatric Medicine; Visit Provider Anesthesiology
DX: M53.3 Sacrococcygeal disorders, not elsewhere classified (principal); M46.1 Sacroiliitis, not elsewhere classified
CPT/HCPCS: 27096; J2795; Q9967

== ENCOUNTER 2023-09-23 13:15 | Outpatient (AMB) | payer OTHER, SELFPAY ==
--- NOTE | 2023-09-23 13:16 | A.OFFVIS_ITS ---
Vital Signs 09/23/23 14:09 09/23/23 14:10 Height 4 ft 11 in Weight 140 lb BMI 28.3 BP 126/66 126/66 Blood Pressure Location Lt brachial Lt brachial Position Sitting Sitting Respiration 16 18 Pulse 62 66 Pulse Source Pulse Oximeter Pulse Oximeter Pulse Oximetry (%) 98 97 Oxygen Delivery Method Room Air Room Air Comment Pre-Op Post-Op Intake Visit Reasons: RIGHT DIAGNOSTIC SIJ INJECTION Allergies Crustaceans Allergy (Severe, Uncoded 06/03/23 09:12) ANAPHYLAXIS [facility] Medical History Diabetes Hypertension Social History Alcohol intake: never Patient Tobacco Use Status: Never used Tobacco Physical Exam Vital Signs: Last Vital Signs Pulse 66 09/23/23 14:10 Resp 18 09/23/23 14:10 BP 126/66 09/23/23 14:10 Pulse Ox 97 09/23/23 14:10 Oxygen Delivery Method Room Air 09/23/23 14:10 BMI result Body Mass Index 28.3 Assessment & Plan Assessment & Plan (1) Sacroiliac joint dysfunction of right side: Code(s): M53.3 - Sacrococcygeal disorders, not elsewhere classified Category: Medical (2) Sacroiliitis: Code(s): M46.1 - Sacroiliitis, not elsewhere classified Category: Medical Plan Right diagnostic sacroiliac joint injection. Informed consent was explained thoroughly to the patient. All questions about benefits and risks for the procedure were answered. Patient came to the operating room and was positioned prone on the operating table with the pillow under the pelvis. Time out was performed delineating name and of the patient, allergies and the nature of the procedure. The lower back and buttocks of the patient were prepped with ChloraPrep prepped and draped with sterile utility towels. C-arm was brought over the operating field and sq picture of patient's pelvis was demonstrated on the screen. For the right joint tilting C-arm contralateral to the site of the joint the most posterior portion of the joints was superimposed with anterior silhouette of the joint. Skin was injected in the projection of the joint slightly medial to the location of the joint with 25 gauge 1/2 inch needle using local lidocaine 2% .After that 22 gauge 3 and 1/2 inch needle was driven to the right joint in tunn el vision fashion. When needle entered the joint capsule injection of the contrast was performed demonstrating intra-articular and minimally periarticular spread of the contrast. After that 4 cc. of ropivacaine 0.5% was injected into the joint. Upon completion of the injections the needle was removed Sterile dressing was applied. Upon completion of the injection patient was taken outside of the operating room to the recovery room where recovered uneventfully. Orders: Orders FL guidance in treatment room Today M53.3 - Sacrococcygeal disorders, not elsewhere classified Coding Level of Care Code Procedure Only Diagnoses Sacroiliac joint dysfunction of right side M53.3 Sacroiliitis M46.1
[2023-09-23 14:09] VITALS: BP 126/66; PULSE 62; RESP 16; O2SAT 98; BMI 28.3
[2023-09-23 14:10] VITALS: BP 126/66; PULSE 66; RESP 18; O2SAT 97
== END 2023-09-23 14:01 | disposition home or self-care (01) ==
LOC: HO.PMCPRC 13:15
PROVIDERS: PCP Internal Medicine Geriatric Medicine; Visit Provider Anesthesiology
DX: M53.3 Sacrococcygeal disorders, not elsewhere classified (principal); M46.1 Sacroiliitis, not elsewhere classified
CPT/HCPCS: 27096

== ENCOUNTER 2023-09-26 13:27 | Outpatient (AMB) | payer OTHER, SELFPAY ==
[2023-09-26 13:32] VITALS: BP 144/65; PULSE 65; O2SAT 97; BMI 28.3
--- NOTE | 2023-09-26 13:32 | A.OFFVIS_ITS ---
Vital Signs 09/26/23 13:32 Height 4 ft 11 in Weight 140 lb BMI 28.3 BP 144/65 H Blood Pressure Location Lt brachial Position Sitting Pulse 65 Pulse Source Pulse Oximeter Pulse Oximetry (%) 97 Oxygen Delivery Method Room Air Intake Visit Reasons: RIGHT DIAGNOSTIC SIJ INJECTION Intake Note: Pain today 8/10 Bladder Changer Required: Yes Bladder Changer Language: Caddymaster Name: Frandy Accompanied by: Grand Child Allergies Crustaceans Allergy (Severe, Uncoded 06/03/23 09:12) ANAPHYLAXIS HPI Comments Details: Patient presents to the office today for follow up, 2 days s/p diagnostic right sacroiliac joint injection with local anesthetic Pain today is rated as 8/10. Patient reports no improvement in her symptoms after the diagnostic injection. MRI was reviewed again with patient and her granddaughter. Patient is suffering from lumbar radiculopathy. Her most recent A1c was greater than 8. Prior: Mary returns to the office today, accompanied by her daughter, for follow-up right lower back pain Since last visit patient had repeat A1c, now 8.1 as of July 01, 2023 She also saw vascular and had varicose vein stripped on the right lower leg. Since then the pain has been improved in that area. She continues with tenderness to palpation over the right PSIS with referred pain down the back of her thigh to the level of the knee. The pain is worse with standing, sitting and lying on the affected side. They are leaving tomorrow for a cruise, she was hoping to get an injection before then. No longer being prescribed tramadol for the pain since it has been better after vascular surgery Prior: Mary returns to the office today, accompanied by her daughter, for follow up and review of recent MRI. MRI reviewed with patient and daughter, results as per below. Repeat A1c 04/19/23 was 9.3. Patient has been working diligently to get her blood sugars under control. They are aware that we cannot give steroid injection for her lumbar radiculopathy with current A1c. She continues with right lower back pain radiating down right leg to the foot. Her pcp started her on Tramadol twice daily, daughter states she gives it to her only as needed when the pain is very bad. They have been using lidocaine patches with some improvement in her pain as well. Prior: Mary is a very pleasant 77-year-old female who presented to the office today, accompanied by her granddaughter, for evaluation management of her lower back pain with radiation down the right leg. Patient's granddaughter assisted with Guinean interpretation per patient's request. Patient has been suffering with this pain for approximately 3 months, without inciting injury. She is currently attending physical therapy with minimal improvement of her pain. She takes Tylenol and muscle relaxers with some imp rovement of her pain. Patient reports pain to the right lower back radiating down the right leg to the toes, she describes the pain as shooting, tingling with associated numbness of the right lower leg. Patient had recent x-ray which was reviewed, results as per below. Pain today is rated as a 5/10, constant throughout the day. Patient denies red flag symptoms including new loss of bowel, bladder or saddle anesthesia. In terms of muscle damage condition is described as shooting, throbbing, numbness, tingling, pins and needles. Pain is negatively impacting patient's enjoyment of life, normal work, mood, activity, sleep and walking. Patient is known diabetic, taking metformin and Trulicity. Most recent A1c January of 2023 was 10.6. The patient has been taking her medications as p rescribed. They report her fasting blood sugar this morning was 132. Patient has never been evaluated by endocrinology, her primary care doctor is managing her diabetes. Family reports that they have been to a intake manager and they have been trying to change the patient's diet utilize the tools they were provided. [facility] Medical History Diabetes Hypertension Social History Alcohol intake: never Patient Tobacco Use Status: Never used Tobacco Review of Systems Const All systems reviewed & are unremarkable except as noted in HPI and below Physical Exam Vital Signs: Last Vital Signs Pulse 65 09/26/23 13:32 BP 144/65 H 09/26/23 13:32 Pulse Ox 97 09/26/23 13:32 Oxygen Delivery Method Room Air 09/26/23 13:32 BMI result Body Mass Index 28.3 General: awake, alert, oriented. Answers questions appropriately. Fully engaged in examination. Skin: warm, dry, intact HEENT: Normocephalic. Hearing intact. Cardiac: External chest normal in appearance. Respiratory: No cough, audible wheezing or stridor. Abdomen: without gross distension. MS: No obvious swelling or deformities. Able to transition from sit to stand unassisted. Strength 5/5 BLE SLR negative bilaterally Tenderness over lumbar paraspinal muscles Neurological: Oriented to person, place, time and situation. Thought process intact. Psychiatric: Appropriate mood and affect. Good judgment and insight. Results Reviewed Results Reviewed: 05/15/2023 MR/MR lumbar spine wo con FINDINGS: Motion degraded lumbar spine MRI. There is transitional anatomy. For the purposes of this report S1 is lumbarized, sharing a rudimentary disc with S2 and pseudoarticulations with the sacrum bilaterally. There are hypoplastic ribs versus articulating transverse processes at L1. Please correlate with plain films prior to any percutaneous or surgical intervention. Vertebral body heights are overall maintained. There is no bone marrow edema. There are no acute fractures. Modic type II endplate signal changes at L5-S1. Multilevel endplate osteophytes. Conus terminates at the L1 level. L1-L2: There is mild bilateral facet arthropathy. No central canal stenosis and no foraminal stenosis. L2-L3: Slight annular disc bulge. There is no central canal stenosis and there is no foraminal stenosis. L3-L4: Disc contour is normal. Mild bilateral facet arthropathy. No central canal stenosis and no foraminal stenosis. L4-L5: Diffuse annular disc bulge and mild bilateral facet arthropathy. No central canal stenosis and no foraminal stenosis. L5-S1: A right paracentral disc protrusion compresses the traversing right S1 nerve root within the right subarticular zone on image 23 of series 6. Background annular disc bulge and moderate bilateral facet arthropathy. Mild bilateral foraminal encroachment. Disc contacts the traversing left S1 nerve root within the left subarticular zone as well. At the transitional S1-S2 level, the posterior disc contour is normal and there is no central canal stenosis nor significant foraminal stenosis. IMPRESSION: There is transitional anatomy. For the purposes of this report S1 is lumbarized, sharing a rudimentary disc with S2 and pseudoarticulations with the sacrum bilaterally. There are hypoplastic ribs versus articulating transverse processes at L1. Please correlate with plain films prior to any percutaneous or surgical intervention. At L5-S1, a right paracentral disc protrusion compresses the traversing right S1 nerve root within the right subarticular zone on image 23 of series 6. Disc contacts the traversing left S1 nerve root within the left subarticular zone as well. 02/05/2023 XR/XR lumbar spine 2-3V FINDINGS: No evidence of acute compression deformity or traumatic subluxation. Moderate to severe intervertebral disc height loss and facet arthropathy at L4-L5 and L5-S1 leading to certain degree of neural foraminal encroachment. Prominent multilevel anterior osteophytes. SI joints are symmetric. No significant paraspinal soft tissue abnormality. Scattered vascular calcifications. IMPRESSION: 1. No acute compression deformity or malalignment. 2. Moderate to severe lumbar spondylosis, more prominent at L4-L5 and L5-S1 leading to neural foraminal encroachment. Further evaluation with an MRI could be obtained as clinically deemed appropriate. Assessment & Plan Assessment & Plan (1) Diabetes: Code(s): E11.9 - Type 2 diabetes mellitus without complications Category: Medical (2) Lumbar radiculopathy: Code(s): M54.16 - Radiculopathy, lumbar region Category: Medical (3) Lumbar spondylosis: Code(s): M47.816 - Spondylosis without myelopathy or radiculopathy, lumbar region Category: Medical (4) Sacroiliac joint dysfunction of right side: Code(s): M53.3 - Sacrococcygeal disorders, not elsewhere classified Category: Medical Plan Patient presents the office today for follow-up, today status post diagnostic right sacroiliac joint injection. She reports no improvement in her pain or function since the injection. Her pain is most consistent with lumbar radiculopathy on the right side. MRI was reviewed with patient in granddaughter again. Lengthy discussion with patient and her granddaughter regarding options for treatment. Given patient's most recent A1c was greater than 8, she is not a candidate for steroid injections. Patient and family are in agreement. They were advised to follow-up with PCP to continue with tramadol if this was helping with her pain. Discussed option for low-dose gabapentin, they will discuss with the patient's daughter. They were advised to reach to the office is if they would like to proceed with this option. All questions and concerns were addressed during the visit, patient and granddaughter verbalized understanding of the plan. Follow-up in the office once A1c is better controlled, sooner if needed Coding Level of Care Code Est Pt Level 3 (76055) Diagnoses Diabetes E11.9 Lumbar radiculopathy M54.16 Lumbar spondylosis M47.816 Sacroiliac joint dysfunction of right side M53.3
== END 2023-09-26 13:55 | disposition home or self-care (01) ==
PROVIDERS: PCP Internal Medicine Geriatric Medicine; Visit Provider Registered Nurse Emergency
DX: M54.16 Radiculopathy, lumbar region (principal); M47.816 Spondylosis without myelopathy or radiculopathy, lumbar region; M53.3 Sacrococcygeal disorders, not elsewhere classified; E11.9 Type 2 diabetes mellitus without complications
CPT/HCPCS: 99213

== ENCOUNTER → 2023-09-26 13:27 | Outpatient (BNVA) | payer OTHER, SELFPAY | PROVIDERS: PCP Internal Medicine Geriatric Medicine; Visit Provider Registered Nurse Emergency | DX: M54.16 Radiculopathy, lumbar region (principal); M47.816 Spondylosis without myelopathy or radiculopathy, lumbar region; M53.3 Sacrococcygeal disorders, not elsewhere classified; E11.9 Type 2 diabetes mellitus without complications | CPT/HCPCS: 99212 ==

== ENCOUNTER 2023-12-21 16:41 | Emergency (ER) | payer OTHER, SELFPAY ==
--- NOTE | ~2023-12-21 | CT_ITS ---
EXAMINATION: CT HEAD WITHOUT CONTRAST CT CERVICAL SPINE WITHOUT CONTRAST CLINICAL INFORMATION: Fall. COMPARISON: CT head 12/24/2021. TECHNIQUE: Contiguous axial imaging was performed from the skull base to vertex without intravenous administration of contrast. Contiguous axial imaging was performed from the upper chest through the skull base without intravenous administration of contrast. Coronal and sagittal reformats were obtained at the acquisition workstation. This CT examination was performed using dose optimization techniques as appropriate, variously including the following: *Automated exposure control *Adjustment of mA and/or kV according to patient size (this includes techniques or standardized protocols for targeted exams where dose is matched to indication/reason for exam; i.e. extremities or head) *Use of iterative reconstruction technique DLP: 890 mGy-cm FINDINGS: Head: There is no evidence of acute intracranial hemorrhage or edematous territorial infarction. A few foci of hypoattenuation in the periventricular and deep white matter are consistent with mild microangiopathy. Avery-white matter differentiation is preserved. Proportional prominence of the ventricles and sulcal spaces. No evidence for obstructive hydrocephalus. No abnormal mass effect or midline shift. No extra-axial fluid collections. Left high occipital scalp hematoma. No displaced calvarial fracture. Trace bilateral mastoid effusions. The paranasal sinuses are clear. Bilateral lens extraction. Cervical Spine: The atlantooccipital and atlantoaxial articulations remain well aligned. Straightening of the normal cervical lordosis. No evidence of acute compression deformity or traumatic subluxation. Severe multilevel cervical spondylosis with intervertebral disc height loss, marginal osteophytes and uncovertebral/facet arthropathy leading to various degrees of neural foraminal encroachment and central canal stenosis. Of note, CT is insensitive for the evaluation of the central spinal canal in the absence of intrathecal contrast. Very prominent multilevel anterior osteophytes indenting upon the pharynx and esophagus. There is no prevertebral soft tissue swelling. The thyroid gland and remaining cervical soft tissues are normal in appearance. The lung apices demonstrate no abnormalities. CT/CT cervical spine wo IV con IMPRESSION: 1. Left high occipital scalp hematoma without evidence of acute intracranial hemorrhage or edematous territorial infarction. 2. No acute cervical spinal fractures or malalignment. 3. Severe cervical spondylosis.
[2023-12-21 17:02] VITALS: BP 162/55; PULSE 64; RESP 16; TEMP 36.4; O2SAT 99; BMI 33.6
--- NOTE | 2023-12-21 17:04 | ED.GENADULT ---
HPI - General Adult General Chief complaint: Fall Stated complaint: fall at home, hit head Time Seen by Provider: 12/21/23 19:11 Source: patient and family Mode of arrival: ambulatory Limitations: no limitations History of Present Illness ED Provider: marika HPI narrative: Patient is a 78-year-old female with history of DM, HTN presenting to the ED with daughter who states that patient was walking down the stairs at home, missed a step and fell, hitting the back of her head when she landed. Patient denies any dizziness or lightheadedness prior to fall. Family denies loss of consciousness. Takes daily ASA, not anticoagulated. Denies any blurred vision, double vision or other changes in vision. Denies nausea or vomiting. Denies neck or back pain. Complains of pain to back of head, applied ice prior to arrival. MD complaint: head injury Onset (ago): minute(s) Location: head Radiation: non-radiation Quality: aching Associated symptoms: denies other symptoms Treatments prior to arrival: cold therapy Related Data Home Medications ?Medication ?Instructions ?Recorded ?Confirmed acetaminophen 500 mg tablet 500 mg PO Q8H PRN pain 01/22/22 amlodipine 10 mg tablet 10 mg PO BEDTIME 01/22/22 aspirin 81 mg tablet,delayed 81 mg PO QAM 01/22/22 release cholecalciferol (vitamin D3) 25 25 mcg PO QAM 01/22/22 mcg (1,000 unit) tablet dulaglutide 4.5 mg/0.5 mL mg subcut QWEEK 01/22/22 subcutaneous pen injector (Trulicity) metformin 500 mg tablet,extended 1,000 mg PO QAM 01/22/22 release 24 hr paroxetine HCl 20 mg tablet 20 mg PO QAM 01/22/22 quetiapine 25 mg tablet 0 mg PO 01/22/22 atorvastatin 80 mg tablet 80 mg PO DAILY 04/10/23 losartan 50 mg tablet 50 mg PO DAILY 04/10/23 alcohol swabs (Alcohol Prep Pads) 1 pad topical QID 05/19/23 blood sugar diagnostic (FreeStyle #10 ea 05/19/23 Lite Strips) insulin glargine 100 unit/mL (3 unit subcut 05/19/23 mL) subcutaneous pen (Lantus Solostar U-100 Insulin) tramadol 50 mg tablet 50 mg PO BEDTIME 05/23/23 Previous Rx's ?Medication ?Instructions ?Recorded cephalexin 500 mg capsule 500 mg PO QID 7 days #28 caps 06/21/22 cetirizine 10 mg tablet 10 mg PO DAILY PRN allergy 01/08/23 symptoms #30 tabs hydroxyzine HCl 25 mg tablet 25 mg PO QID PRN itching #30 tabs 01/08/23 triamcinolone acetonide 0.1 % 1 appl topical TID #80 grams 01/08/23 topical ointment pimecrolimus 1 % topical cream 1 appl topical DAILY #60 grams 01/10/23 prednisone 20 mg tablet 20 mg PO DAILY #7 tabs 01/10/23 cyclobenzaprine 5 mg tablet 5 mg PO TID PRN back pain 7 days 02/05/23 #21 tabs lidocaine 5 % topical patch 1 patch topical DAILY #30 ea 05/23/23 methocarbamol 500 mg tablet 500 mg PO TID PRN muscle spasm #30 08/21/23 tabs Allergies Allergy/AdvReac Type Severity Reaction Status Date / Time Crustaceans Allergy Severe ANAPHYLAXIS Uncoded 12/21/23 17:05 Review of Systems Review of Systems: As per HPI. Yes all other systems are reviewed and are negative Constitutional: Constitutional: Reports as per HPI [facility] Past Medical History Medical History Diabetes Hypertension Social History Social History Alcohol intake: never Patient Tobacco Use Status: Never used Tobacco Advance Directives: No Advance Directives Information Provided: No Do you have a plan to hurt others: No Plan Physical Exam ED Vital Signs: Vital Signs - 24 hr 12/21/23 17:02 Temperature 97.5 F Pulse Rate 64 Respiratory Rate 16 Blood Pressure 162/55 H Pulse Oximetry 99 Oxygen Delivery Method Room Air BMI result Body Mass Index 33.6 Vital signs have been reviewed and appear to be correct. Blood pressure elevated. Heart rate normal. Respiratory rate normal. Temperature normal. Oxygen saturation normal. Const General: cooperative, healthy appearing and no acute distress Orientation/consciousness: oriented to person, oriented to place, oriented to time and patient oriented x3 Limitations: no limitations HENMT Head: Yes normocephalic, Yes contusion and Yes scalp tenderness Head images: 1. tenderness, mild swelling Ears: external ears normal, TM's normal bilaterally and EAC's normal General nose exam: Normal external nose present, Normal nasal mucous membranes and turbinates present and Normal septum present Face and sinus: Yes face symmetric Mouth: oropharynx normal and moist mucous membranes Throat: Yes uvula midline Eyes Pupils: Equal, round and reactive pupils present Neck Neck: Yes normal visual inspection and Yes supple Resp Effort & Inspection: normal respiratory effort and able to speak in complete sentences Auscultation: clear to auscultation bilaterally Cardio Rate: regular rate Rhythm: regular rhythm Heart sounds: S1 normal heart sound present and S2 normal heart sound present GI Palpation (GI): Soft to palpation and nontender Auscultation: normoactive bowel sounds General: Yes no CVA tenderness Back/Spine/Pelvis Back: no CVA tenderness Cervical Spine: normal cervical lordosis, cervical ROM normal, pain with cervical ROM, No Cervical spine tenderness and No step off deformity Thoracic/Lumbar Spine: thoracic and lumbar spine normal to inspection, thoraco-lumbar ROM normal, straight leg raise negative bilaterally, No pain with thoraco-lumbar ROM, No thoracic spinal tenderness and No lumbar spinal tenderness Skin General skin exam: elasticity normal and turgor normal Neuro General: oriented to person, oriented to place, oriented to time, patient oriented x3, moves all extremities, no focal motor deficits and CN's II-XI intact bilaterally Cranial nerves: Yes Equal, round and reactive pupils present Cognition (Neuro): normal cognition Extrem General: Yes full ROM, Yes no pedal edema and Yes no calf tenderness Psych Mental Status: mental status grossly normal Affect: normal affect Thought process: Normal thought process present Course Course Course Narrative: This is a rapid medical exam performed by Steve Maria NP: Additional HPI, ROS, PE not included below will be deferred to primary provider. Patient is a 78-year-old female with history of DM, HTN presenting to the ED with daughter who states that patient was walking down the stairs at home, missed a step and fell, hitting the back of her head when she landed. Denies loss of consciousness. Takes daily ASA, not anticoagulated. Plan: CT head and C-spine Medical Decision Making Medical Decision Making MDM Narrative: Patient is a 78-year-old female with history of DM, HTN presenting to the ED with daughter who states that patient was walking down the stairs at home, missed a step and fell, hitting the back of her head when she landed. On exam patient is awake, A+Ox3, BP elevated, VS otherwise WNL, afebrile, normal neurological exam without focal deficits, physical exam findings as above. Given reported symptoms and physical exam findings, initial differential includes ICH, skull or cervical vertebral fracture subluxation, contusion. CT head and C-spine notable for left occipital scalp hematoma, no ICH, skull or cervical fracture or subluxation. My interpretation is in agreement with the radiologist's interpretation. Patient updated on results. Advised to use Tylenol/ibuprofen for pain, continue to apply ice intermittently. Return precautions discussed with patient and daughter. Follow up with PCP. Patient and daughter verbalized understanding of and agreement with plan. Differential Diagnosis Differential Diagnoses: The differential diagnosis associated with the presentation includes As per [facility] Admission/Observation Consideration of admission/observation: Escalation of care including admission/observation considered Patient would have been admitted to the hospital had their work up had any findings where hospital admission was appropriate and their clinical presentation warranted hospital admission. Independent Interpretation I performed an independent interpretation of an: CT Scan Interpretation: CT head and C-spine notable for left occipital scalp hematoma, no ICH, skull or cervical fracture or subluxation. Radiology Impression Discussion of test interpretation with radiology: I have reviewed the radiologist's reading. Radiologist Impression: CT/CT head/brain wo IV con IMPRESSION: 1. Left high occipital scalp hematoma without evidence of acute intracranial hemorrhage or edematous territorial infarction. 2. No acute cervical spinal fractures or malalignment. 3. Severe cervical spondylosis. External Record Review External record reviewed: Inpatient record, Office record and Outpatient record Discharge Plan Discharge Clinical Impression: Hematoma of occipital region of scalp Patient Disposition: Home, Self-Care Instructions: Contusion in Adults (ED), Scalp Contusion in Adults (ED) Additional Instructions: You have been evaluated in the emergency department today for head injury. Your CT scans did not show signs of bleeding or fractures in your head or neck. We recommend you take 600 mg ibuprofen every 6 hours or Tylenol 650 mg every 6 hours as needed for pain. If needed, you can alternate these medications so that you take 1 medication every 3 hours. For instance, at noon take ibuprofen, then at 3:00 p.m. take Tylenol, then at 6:00 p.m. take ibuprofen. Please schedule an appointment with for follow-up with your primary care provider as soon as possible. Return to the emergency department if you experience worsening or uncontrolled pain, vision changes, recurrent vomiting, difficulty with normal activities, abnormal behavior, difficulty walking, numbness, weakness, or any other concerning symptoms. Prescriptions: No Action cephalexin 500 mg capsule 500 mg PO QID 7 Days Qty: 28 0RF cetirizine 10 mg tablet 10 mg PO DAILY PRN (Reason: allergy symptoms) Qty: 30 0RF triamcinolone acetonide 0.1 % ointment 1 appl topical TID Qty: 80 0RF hydroxyzine HCl 25 mg tablet 25 mg PO QID PRN (Reason: itching) Qty: 30 0RF pimecrolimus 1 % cream 1 appl topical DAILY Qty: 60 0RF prednisone 20 mg tablet 20 mg PO DAILY Qty: 7 0RF cyclobenzaprine 5 mg tablet 5 mg PO TID PRN (Reason: back pain) 7 Days Qty: 21 0RF Trulicity 4.5 mg/0.5 mL pen injector subcut QWEEK cholecalciferol (vitamin D3) 25 mcg (1,000 unit) tablet 25 mcg PO QAM amlodipine 10 mg tablet 10 mg PO BEDTIME quetiapine 25 mg tablet 0 mg PO paroxetine HCl 20 mg tablet 20 mg PO QAM metformin 500 mg tablet extended release 24 hr 1,000 mg PO QAM aspirin 81 mg tablet,delayed release (DR/EC) 81 mg PO QAM acetaminophen 500 mg tablet 500 mg PO Q8H PRN (Reason: pain) atorvastatin 80 mg tablet 80 mg PO DAILY losartan 50 mg tablet 50 mg PO DAILY insulin glargine [Lantus Solostar U-100 Insulin] 100 unit/mL (3 mL) insulin pen subcut alcohol swabs [Alcohol Prep Pads] Pads, Medicated 1 pad topical QID (DME) FreeStyle Lite Strips Strip See Rx Instructions .ROUTE QID Qty: 10 Rx Instructions: As directed tramadol 50 mg tablet 50 mg PO BEDTIME lidocaine 5 % adhesive patch,medicated 1 patch topical DAILY Qty: 30 3RF Rx Instructions: leave on most painful area for up to 12 hrs methocarbamol 500 mg tablet 500 mg PO TID PRN (Reason: muscle spasm) Qty: 30 0RF Rx Instructions: No driving while taking this medication. 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
[2023-12-21 19:28] VITALS: BP 156/48; PULSE 63; RESP 14; TEMP 36.9; O2SAT 99
[2023-12-21 19:43] VITALS: BP 156/48; PULSE 63; RESP 14; TEMP 36.9; O2SAT 99
== END 2023-12-21 19:44 | disposition home or self-care (01) ==
PROVIDERS: Emergency Provider Emergency Medicine; PCP Internal Medicine Geriatric Medicine
DX: S00.03XA Contusion of scalp, initial encounter (principal); M54.2 Cervicalgia; R51.9 Headache, unspecified; E11.9 Type 2 diabetes mellitus without complications; I10 Essential (primary) hypertension; W10.9XXA Fall (on) (from) unspecified stairs and steps, initial encounter; Y93.9 Activity, unspecified; Y92.098 Other place in other non-institutional residence as the place of occurrence of the external cause; Y99.8 Other external cause status; Z79.4 Long term (current) use of insulin
CPT/HCPCS: 70450; 72125; 99284

== ENCOUNTER 2024-02-12 14:30 | Outpatient (AMB) | payer OTHER, SELFPAY ==
[2024-02-12 14:46] VITALS: BP 186/78; PULSE 72; O2SAT 98
--- NOTE | 2024-02-12 14:46 | A.OFFVIS_ITS ---
Vital Signs 02/12/24 14:46 BP 186/78 H Blood Pressure Location Lt brachial Position Sitting Pulse 72 Pulse Source Pulse Oximeter Pulse Oximetry (%) 98 Oxygen Delivery Method Room Air Intake Visit Reasons: Low Back Pain w/ Radiation Down Right Leg Allergies Crustaceans Allergy (Severe, Uncoded 12/21/23 17:05) ANAPHYLAXIS HPI Comments Details: Mary presents back to the office today, accompanied by her granddaughter, for follow-up right lower back pain Pain today is rated as a 10/10, right lower back with radiation down right leg She has been doing physical therapy without improvement of her symptoms Unknown A1c, last known was greater than 8. Patient is not sure when she had blood work done last Prior: Patient presents to the office today for follow up, 2 days s/p diagnostic right sacroiliac joint injection with local anesthetic Pain today is rated as 8/10. Patient reports no improvement in her symptoms after the diagnostic injection. MRI was reviewed again with patient and her granddaughter. Patient is suffering from lumbar radiculopathy. Her most recent A1c was greater than 8. Prior: Mary returns to the office today, accompanied by her daughter, for follow-up right lower back pain Since last visit patient had repeat A1c, now 8.1 as of July 01, 2023 She also saw vascular and had varicose vein stripped on the right lower leg. Since then the pain has been improved in that area. She continues with tenderness to palpation over the right PSIS with referred pain down the back of her thigh to the level of the knee. The pain is worse with standing, sitting and lying on the affected side. They are leaving tomorrow for a cruise, she was hoping to get an injection before then. No longer being prescribed tramadol for the pain since it has been better after vascular surgery Prior: Mary returns to the office today, accompanied by her daughter, for follow up and review of recent MRI. MRI reviewed with patient and daughter, results as per below. Repeat A1c 04/19/23 was 9.3. Patient has been working diligently to get her blood sugars under control. They are aware that we cannot give steroid injection for her lumbar radiculopathy with current A1c. She continues with right lower back pain radiating down right leg to the foot. Her pcp started her on Tramadol twice daily, daughter states she gives it to her only as needed when the pain is very bad. They have been using lidocaine patches with some improvement in her pain as well. Prior: Mary is a very pleasant 77-year-old female who presented to the office today, accompanied by her granddaughter, for evaluation management of her lower back pain with radiation down the right leg. Patient's granddaughter assisted with [place]ian interpretation per patient's request. Patient has been suffering with this pain for approximately 3 months, without inciting injury. She is currently attending physical therapy with minimal improvement of her pain. She takes Tylenol and muscle relaxers with some improvement of her pain. Patient reports pain to the right lower back radiating down the right leg to the toes, she describes the pain as shooting, tingling with associated numbness of the right lower leg. Patient had recent x-ray which was reviewed, results as per below. Pain today is rated as a 5/10, constant throughout the day. Patient denies red flag symptoms including new loss of bowel, bladder or saddle anesthesia. In terms of muscle damage condition is described as shooting, throbbing, numbness, tingling, pins and needles. Pain is negatively impacting patient's enjoyment of life, normal work, mood, activity, sleep and walking. Patient is known diabetic, taking metformin and Trulicity. Most recent A1c January of 2023 was 10.6. The patient has been taking her medications as prescribed. They report her fasting blood sugar this morning was 132. Patient has never been evaluated by endocrinology, her primary care doctor is managing her diabetes. Family reports that they have been to a trouble dispatcher and they have been trying to change the patient's diet utilize the tools they were provided. [facility] Medical History Diabetes Hypertension Social History Alcohol intake: never Patient Tobacco Use Status: Never used Tobacco Review of Systems Const All systems reviewed & are unremarkable except as noted in HPI and below Physical Exam Vital Signs: Last Vital Signs Pulse 72 02/12/24 14:46 BP 186/78 H 02/12/24 14:46 Pulse Ox 98 02/12/24 14:46 Oxygen Delivery Method Room Air 02/12/24 14:46 General: awake, alert, oriented. Answers questions appropriately. Fully engaged in examination. Skin: warm, dry, intact HEENT: Normocephalic. Hearing intact. Cardiac: External chest normal in appearance. Respiratory: No cough, audible wheezing or stridor. Abdomen: without gross distension. MS: No obvious swelling or deformities. Able to transition from sit to stand unassisted. Strength 5/5 BLE SLR negative bilaterally Tenderness over lumbar paraspinal muscles Neurological: Oriented to person, place, time and situation. Thought process intact. Psychiatric: Appropriate mood and affect. Good judgment and insight. Results Reviewed Results Reviewed: 05/15/2023 MR/MR lumbar spine wo con FINDINGS: Motion degraded lumbar spine MRI. There is transitional anatomy. For the purposes of this report S1 is lumbarized, sharing a rudimentary disc with S2 and pseudoarticulations with the sacrum bilaterally. There are hypoplastic ribs versus articulating transverse processes at L1. Please correlate with plain films prior to any percutaneous or surgical intervention. Vertebral body heights are overall maintained. There is no bone marrow edema. There are no acute fractures. Modic type II endplate signal changes at L5-S1. Multilevel endplate osteophytes. Conus terminates at the L1 level. L1-L2: There is mild bilateral facet arthropathy. No central canal stenosis and no foraminal stenosis. L2-L3: Slight annular disc bulge. There is no central canal stenosis and there is no foraminal stenosis. L3-L4: Disc contour is normal. Mild bilateral facet arthropathy. No central canal stenosis and no foraminal stenosis. L4-L5: Diffuse annular disc bulge and mild bilateral facet arthropathy. No central canal stenosis and no foraminal stenosis. L5-S1: A right paracentral disc protrusion compresses the traversing right S1 nerve root within the right subarticular zone on image 23 of series 6. Background annular disc bulge and moderate bilateral facet arthropathy. Mild bilateral foraminal encroachment. Disc contacts the traversing left S1 nerve root within the left subarticular zone as well. At the transitional S1-S2 level, the posterior disc contour is normal and there is no central canal stenosis nor significant foraminal stenosis. IMPRESSION: There is transitional anatomy. For the purposes of this report S1 is lumbarized, sharing a rudimentary disc with S2 and pseudoarticulations with the sacrum bilaterally. There are hypoplastic ribs versus articulating transverse processes at L1. Please correlate with plain films prior to any percutaneous or surgical intervention. At L5-S1, a right paracentral disc protrusion compresses the traversing right S1 nerve root within the right subarticular zone on image 23 of series 6. Disc contacts the traversing left S1 nerve root within the left subarticular zone as well. 02/05/2023 XR/XR lumbar spine 2-3V FINDINGS: No evidence of acute compression deformity or traumatic subluxation. Moderate to severe intervertebral disc height loss and facet arthropathy at L4-L5 and L5-S1 leading to certain degree of neural foraminal encroachment. Prominent multilevel anterior osteophytes. SI joints are symmetric. No significant paraspinal soft tissue abnormality. Scattered vascular calcifications. IMPRESSION: 1. No acute compression deformity or malalignment. 2. Moderate to severe lumbar spondylosis, more prominent at L4-L5 and L5-S1 leading to neural foraminal encroachment. Further evaluation with an MRI could be obtained as clinically deemed appropriate. Assessment & Plan Assessment & Plan (1) Diabetes: Code(s): E11.9 - Type 2 diabetes mellitus without complications Category: Medical (2) Lumbar radiculopathy: Code(s): M54.16 - Radiculopathy, lumbar region Category: Medical (3) Lumbar spondylosis: Code(s): M47.816 - Spondylosis without myelopathy or radiculopathy, lumbar region Category: Medical (4) Sacroiliac joint dysfunction of right side: Code(s): M53.3 - Sacrococcygeal disorders, not elsewhere classified Category: Medical Plan Patient presents the office today for follow-up right back pain History, physical exam and provocative testing consistent with right lumbar radiculopathy Lengthy discussion with patient and her granddaughter regarding options for treatment. Last known A1c was greater than 8, she is not a candidate for steroid injections. We discussed options for treatment including transforaminal epidural injection with lidocaine only. This will provide her shorter term pain relief as opposed to steroid injections but given her poorly controlled diabetes steroids are not ideal. Patient and family would like to proceed with this option. Patient has exhausted conservative therapy including PT, cort-zex-[id number] medications, topical medications, lidocaine patches, Tylenol. Unable to take nonsteroidal anti-inflammatory medications due to kidney disease Will schedule for right L5-S1 transforaminal epidural injection without steroids under fluoroscopy guided with local anesthetic All questions and concerns were addressed during the visit, patient and granddaughter verbalized understanding of the plan. Follow-up up after injection, sooner if needed Coding Level of Care Code Est Pt Level 3 (35152) Complex EM visit Add On G2211 Diagnoses Diabetes E11.9 Lumbar radiculopathy M54.16 Lumbar spondylosis M47.816 Sacroiliac joint dysfunction of right side M53.3
== END 2024-02-12 15:10 | disposition home or self-care (01) ==
PROVIDERS: PCP Internal Medicine Geriatric Medicine; Visit Provider Registered Nurse Emergency
DX: E11.9 Type 2 diabetes mellitus without complications (principal); M54.16 Radiculopathy, lumbar region; M47.816 Spondylosis without myelopathy or radiculopathy, lumbar region; M53.3 Sacrococcygeal disorders, not elsewhere classified
CPT/HCPCS: 99213; G2211

== ENCOUNTER → 2024-02-12 14:30 | Outpatient (BNVA) | payer OTHER, SELFPAY | PROVIDERS: PCP Internal Medicine Geriatric Medicine; Visit Provider Registered Nurse Emergency | DX: M47.26 Other spondylosis with radiculopathy, lumbar region (principal); M53.3 Sacrococcygeal disorders, not elsewhere classified | CPT/HCPCS: 99212 ==

== ENCOUNTER 2024-04-13 06:07 | Outpatient (REF) | payer OTHER, SELFPAY ==
--- NOTE | ~2024-04-13 | FL_ITS ---
EXAMINATION: FLUORO GUIDANCE IN TREATMENT ROOM CLINICAL INFORMATION: Radiculopathy, lumbar region. COMPARISON: None available. TECHNIQUE: Fluoroscopy supervised by: Dr. Damian Alicea. Fluoroscopy time: 0.4 minutes. Cumulative Dose: 5.16 mGy. DAP: 0.0897 mGy-m2 (milligray-meter squared). Images: 7. FINDINGS: Imaging shows a needle overlying the presumed L5-S1 disc space on the right (I am assuming that left marked on the radiograph is on the left side of the patient and not necessarily decided of the needle-please correlate with procedural report). FL/FL guidance in treatment room IMPRESSION: Fluoroscopy during procedure. Please see procedure report for additional information. Electronically signed by: Aaron Jones MD 06/09/2024 02:37 PM [facility]ELIX
== END 2024-04-13 06:08 | disposition home or self-care (01) ==
LOC: CF 06:07
PROVIDERS: Visit Provider Anesthesiology
DX: M54.16 Radiculopathy, lumbar region (principal)
CPT/HCPCS: 64483; J2003; Q9967

== ENCOUNTER 2024-04-13 07:07 | Outpatient (AMB) | payer OTHER, SELFPAY ==
[2024-04-13 07:23] VITALS: BP 159/78; PULSE 64; O2SAT 99
--- NOTE | 2024-04-13 07:23 | MHC.OFFVIS ---
Vital Signs 04/13/24 07:23 04/13/24 08:13 BP 159/78 H 176/75 H Blood Pressure Location Lt brachial Lt brachial Position Sitting Sitting Pulse 64 67 Pulse Source Pulse Oximeter Pulse Oximeter Pulse Oximetry (%) 99 99 Oxygen Delivery Method Room Air Room Air Intake Visit Reasons: RIGHT L5, S1 TFEI/ WITHOUT STEROIDS Allergies Crustaceans Allergy (Severe, Uncoded 12/21/23 17:05) [facility] Medical History Diabetes Hypertension Social History Alcohol intake: never Patient Tobacco Use Status: Never used Tobacco Physical Exam Vital Signs: Last Vital Signs Pulse 67 04/13/24 08:13 BP 176/75 H 04/13/24 08:13 Pulse Ox 99 04/13/24 08:13 Oxygen Delivery Method Room Air 04/13/24 08:13 Assessment & Plan Assessment & Plan (1) Lumbar radiculopathy: Code(s): M54.16 - Radiculopathy, lumbar region Category: Medical Plan Right L5-S1 Transforaminal epidural steroid injection Informed consent was thoroughly explained to the patient before the procedure. Risks and benefits were explained including risks of bleeding infection peripheral nerve damage spinal cord damage and headache. The patient came to the operating room. She was positioned prone on operating table with a pillow under her abdomen. Time-out was performed delineating correct site and side of the procedure, nature of the injection, name and date of of the patient. The lower back of the patient was prepped with ChloraPrep and draped with sterile utility towels. C-arm was brought over the operating field and sq picture of L5 vertebra was demonstrated on the screen. The left side was chosen as the side of the injection. Tilting machine ipsilateral to the right at the level of L5the most prominent picture of the pedicle on the right was demonstrated on the screen. 3 mm below the most lowest point of the pedicle projection to the skin small amount of lidocaine 1% was injected to anesthetize the skin. After that 5 in 22 gauge Quincke point needle was inserted through the skin wheal and was advanced toward L5-S1 foramina on anterior posterior, lateral and oblique views intermittently. When the needle entered foramina on AP view. When tip of the needle entered foramina projection on AP view injection of the contrast was performed demonstrating epidural and perineural spread of the contrast. After that injection of the treatment medicine 3 cc of preservative-free lidocaine 1% was injected into the foramina. No intrathecal and no intravascular spread of the contrast was noted. The needle was removed . Upon completion of the procedure needle was removed and sterile Band-Aid was applied. Patient tolerated the procedure well Orders: Orders FL guidance in treatment room Today M54.16 - Radiculopathy, lumbar region Coding Level of Care Code Procedure Only Diagnoses Lumbar radiculopathy M54.16
[2024-04-13 08:13] VITALS: BP 176/75; PULSE 67; O2SAT 99
== END 2024-04-13 08:14 | disposition home or self-care (01) ==
LOC: HO.PMCPRC 07:07
PROVIDERS: PCP Internal Medicine Geriatric Medicine; Visit Provider Anesthesiology
DX: M54.16 Radiculopathy, lumbar region (principal)
CPT/HCPCS: 64483

== ENCOUNTER 2024-04-28 07:53 | Outpatient (AMB) | payer OTHER, SELFPAY ==
--- NOTE | 2024-04-28 08:14 | MHC.OFFVIS ---
Vital Signs 04/28/24 08:15 Height 4 ft 11 in Weight 165 lb BMI 33.3 BP 183/75 H Blood Pressure Location Lt brachial Position Sitting Respiration 15 Pulse 71 Pulse Source Pulse Oximeter Pulse Oximetry (%) 95 Oxygen Delivery Method Room Air Intake Visit Reasons: RIGHT L5, S1 TFEI/04/13/24 Professor Of Medicine Required: Yes Professor Of Medicine Services: Professor Of Medicine Offered & Declined Professor Of Medicine Name: Prefers daughter to translate Allergies Crustaceans Allergy (Severe, Uncoded 04/28/24 08:18) ANAPHYLAXIS Medication List - Last Reconciled 04/28/24 by Ana Kim LPN acetaminophen 500 mg PO Q8H PRN alcohol swabs (Alcohol Prep Pads) 1 pad topical QID amlodipine 10 mg PO BEDTIME aspirin 81 mg PO QAM atorvastatin 80 mg PO DAILY blood sugar diagnostic (FreeStyle Lite Strips) As directed cetirizine 10 mg PO DAILY PRN cholecalciferol (vitamin D3) 25 mcg PO QAM cyclobenzaprine 5 mg PO TID PRN 7 days hydroxyzine HCl 25 mg PO QID PRN insulin glargine (Lantus Solostar U-100 Insulin) units subcut lidocaine 5% 1 patch topical DAILY losartan 50 mg PO DAILY metformin ER 1,000 mg PO QAM methocarbamol 500 mg PO TID PRN paroxetine HCl 20 mg PO QAM pimecrolimus 1% 1 appl topical DAILY quetiapine 0 mg PO semaglutide (Ozempic) 1 mg subcut QWEEK tramadol 50 mg PO BEDTIME triamcinolone acetonide 0.1% 1 appl topical TID HPI Comments Details: Patient presents back to the office today, accompanied by her daughter, for follow-up lumbar radiculopathy 2 weeks ago she presented to the procedure unit for right L5-S1 transforaminal epidural injection, this procedure was aborted prior to completion as patient was able tolerate it. No medication was administered other than local anesthetic. Pain today is rated as a 7/10, right back with radiation down the right leg Discuss options for repeat procedure with sedation. Unknown most recent A1c. Her daughter would like her to have it with steroids but states she has not had blood work done in several months. Denies new injury. Denies changes to medications, past medical history, allergies Prior: Mary presents back to the office today, accompanied by her granddaughter, for follow-up right lower back pain Pain today is rated as a 10/10, right lower back with radiation down right leg She has been doing physical therapy without improvement of her symptoms Unknown A1c, last known was greater than 8. Patient is not sure when she had blood work done last Prior: Patient presents to the office today for follow up, 2 days s/p diagnostic right sacroiliac joint injection with local anesthetic Pain today is rated as 8/10. Patient reports no improvement in her symptoms after the diagnostic injection. MRI was reviewed again with patient and her granddaughter. Patient is suffering from lumbar radiculopathy. Her most recent A1c was greater than 8. Prior: Mary returns to the office today, accompanied by her daughter, for follow-up right lower back pain Since last visit patient had repeat A1c, now 8.1 as of July 01, 2023 She also saw vascular and had varicose vein stripped on the right lower leg. Since then the pain has been improved in that area. She continues with tenderness to palpation over the right PSIS with referred pain down the back of her thigh to the level of the knee. The pain is worse with standing, sitting and lying on the affected side. They are leaving tomorrow for a cruise, she was hoping to get an injection before then. No longer being prescribed tramadol for the pain since it has been better after vascular surgery Prior: Mary returns to the office today, accompanied by her daughter, for follow up and review of recent MRI. MRI reviewed with patient and daughter, results as per below. Repeat A1c 04/19/23 was 9.3. Patient has been working diligently to get her blood sugars under control. They are aware that we cannot give steroid injection for her lumbar radiculopathy with current A1c. She continues with right lower back pain radiating down right leg to the foot. Her pcp started her on Tramadol twice daily, daughter states she gives it to her only as needed when the pain is very bad. They have been using lidocaine patches with some improvement in her pain as well. Intake note: Mary is a very pleasant 77-year-old female who presented to the office today, accompanied by her granddaughter, for evaluation management of her lower back pain with radiation down the right leg. Patient's granddaughter assisted with Italian interpretation per patient's request. Patient has been suffering with this pain for approximately 3 months, without inciting injury. She is currently attending physical therapy with minimal improvement of her pain. She takes Tylenol and muscle relaxers with some improvement of her pain. Patient reports pain to the right lower back radiating down the right leg to the toes, she describes the pain as shooting, tingling with associated numbness of the right lower leg. Patient had recent x-ray which was reviewed, results as per below. Pain today is rated as a 5/10, constant throughout the day. Patient denies red flag symptoms including new loss of bowel, bladder or saddle anesthesia. In terms of muscle damage condition is described as shooting, throbbing, numbness, tingling, pins and needles. Pain is negatively impacting patient's enjoyment of life, normal work, mood, activity, sleep and walking. Patient is known diabetic, taking metformin and Trulicity. Most recent A1c January of 2023 was 10.6. The patient has been taking her medications as prescribed. They report her fasting blood sugar this morning was 132. Patient has never been evaluated by endocrinology, her primary care doctor is managing her diabetes. Family reports that they have been to a shear helper and they have been trying to change the patient's diet utilize the tools they were provided. [facility] Medical History Diabetes Hypertension Social History Alcohol intake: never Patient Tobacco Use Status: Never used Tobacco Review of Systems Const All systems reviewed & are unremarkable except as noted in HPI and below Physical Exam Vital Signs: Last Vital Signs Pulse 71 04/28/24 08:15 Resp 15 04/28/24 08:15 BP 183/75 H 04/28/24 08:15 Pulse Ox 95 04/28/24 08:15 Oxygen Delivery Method Room Air 04/28/24 08:15 BMI result Body Mass Index 33.3 General: awake, alert, oriented. Answers questions appropriately. Fully engaged in examination. Skin: warm, dry, intact HEENT: Normocephalic. Hearing intact. Cardiac: External chest normal in appearance. Respiratory: No cough, audible wheezing or stridor. Abdomen: without gross distension. MS: No obvious swelling or deformities. Able to transition from sit to stand unassisted. Neurological: Oriented to person, place, time and situation. Thought process intact. Psychiatric: Appropriate mood and affect. Good judgment and insight. Results Reviewed Results Reviewed: 05/15/2023 MR/MR lumbar spine wo con FINDINGS: Motion degraded lumbar spine MRI. There is transitional anatomy. For the purposes of this report S1 is lumbarized, sharing a rudimentary disc with S2 and pseudoarticulations with the sacrum bilaterally. There are hypoplastic ribs versus articulating transverse processes at L1. Please correlate with plain films prior to any percutaneous or surgical intervention. Vertebral body heights are overall maintained. There is no bone marrow edema. There are no acute fractures. Modic type II endplate signal changes at L5-S1. Multilevel endplate osteophytes. Conus terminates at the L1 level. L1-L2: There is mild bilateral facet arthropathy. No central canal stenosis and no foraminal stenosis. L2-L3: Slight annular disc bulge. There is no central canal stenosis and there is no foraminal stenosis. L3-L4: Disc contour is normal. Mild bilateral facet arthropathy. No central canal stenosis and no foraminal stenosis. L4-L5: Diffuse annular disc bulge and mild bilateral facet arthropathy. No central canal stenosis and no foraminal stenosis. L5-S1: A right paracentral disc protrusion compresses the traversing right S1 nerve root within the right subarticular zone on image 23 of series 6. Background annular disc bulge and moderate bilateral facet arthropathy. Mild bilateral foraminal encroachment. Disc contacts the traversing left S1 nerve root within the left subarticular zone as well. At the transitional S1-S2 level, the posterior disc contour is normal and there is no central canal stenosis nor significant foraminal stenosis. IMPRESSION: There is transitional anatomy. For the purposes of this report S1 is lumbarized, sharing a rudimentary disc with S2 and pseudoarticulations with the sacrum bilaterally. There are hypoplastic ribs versus articulating transverse processes at L1. Please correlate with plain films prior to any percutaneous or surgical intervention. At L5-S1, a right paracentral disc protrusion compresses the traversing right S1 nerve root within the right subarticular zone on image 23 of series 6. Disc contacts the traversing left S1 nerve root within the left subarticular zone as well. 02/05/2023 XR/XR lumbar spine 2-3V FINDINGS: No evidence of acute compression deformity or traumatic subluxation. Moderate to severe intervertebral disc height loss and facet arthropathy at L4-L5 and L5-S1 leading to certain degree of neural foraminal encroachment. Prominent multilevel anterior osteophytes. SI joints are symmetric. No significant paraspinal soft tissue abnormality. Scattered vascular calcifications. IMPRESSION: 1. No acute compression deformity or malalignment. 2. Moderate to severe lumbar spondylosis, more prominent at L4-L5 and L5-S1 leading to neural foraminal encroachment. Further evaluation with an MRI could be obtained as clinically deemed appropriate. Assessment & Plan Assessment & Plan (1) Diabetes: Code(s): E11.9 - Type 2 diabetes mellitus without complications Category: Medical (2) Lumbar radiculopathy: Code(s): M54.16 - Radiculopathy, lumbar region Category: Medical (3) Lumbar spondylosis: Code(s): M47.816 - Spondylosis without myelopathy or radiculopathy, lumbar region Category: Medical (4) Sacroiliac joint dysfunction of right side: Code(s): M53.3 - Sacrococcygeal disorders, not elsewhere classified Category: Medical Plan Patient presents the office today for follow-up right lumbar radiculopathy She has exhausted conservative therapy including PT, [id number] medications, topical medications, lidocaine patches, Tylenol. Unable to take nonsteroidal anti-inflammatory medications due to kidney disease Lengthy discussion with patient and her granddaughter regarding options for treatment as patient was not able to tolerate TFEI with only local anesthesia. Offered to repeat procedure with sedation, daughter would like her to receive steroids in the injection if they proceed with sedation. A1c ordered for eval. Once A1c is reviewed will call patient/daughter to discuss results and treatment options. If A1c controlled will schedule for right L5-S1 transforaminal epidural steroid injection under fluoroscopy guided with sedation All questions and concerns were addressed during the visit, patient and granddaughter verbalized understanding of the plan. Follow-up up after A1c resulted, sooner if needed Orders: Orders Hemoglobin A1c Today E11.9 - Type 2 diabetes mellitus without complications Coding Level of Care Code Est Pt Level 3 (17243) Complex EM visit Add On G2211 Diagnoses Diabetes E11.9 Lumbar radiculopathy M54.16 Lumbar spondylosis M47.816 Sacroiliac joint dysfunction of right side M53.3
[2024-04-28 08:15] VITALS: BP 183/75; PULSE 71; RESP 15; O2SAT 95; BMI 33.3
== END 2024-04-28 08:46 | disposition home or self-care (01) ==
PROVIDERS: PCP Internal Medicine Geriatric Medicine; Visit Provider Registered Nurse Emergency
DX: E11.9 Type 2 diabetes mellitus without complications (principal); M54.16 Radiculopathy, lumbar region; M47.816 Spondylosis without myelopathy or radiculopathy, lumbar region; M53.3 Sacrococcygeal disorders, not elsewhere classified
CPT/HCPCS: 99213; G2211

== ENCOUNTER 2024-04-28 09:18 | Outpatient (REF) | payer OTHER, SELFPAY ==
[2024-04-28 10:48] LABS: Estimated Average Glucose 295 mg/dL; Hemoglobin A1c % 11.9 % (<6.0); Total Hemoglobin (HGBA1C) 2884.1484 umol/L
== END 2024-04-28 09:19 | disposition home or self-care (01) ==
LOC: HO.10HDL 09:18
PROVIDERS: Visit Provider Registered Nurse Emergency
DX: E11.9 Type 2 diabetes mellitus without complications (principal); M54.16 Radiculopathy, lumbar region; M47.816 Spondylosis without myelopathy or radiculopathy, lumbar region; M53.3 Sacrococcygeal disorders, not elsewhere classified
CPT/HCPCS: 36415; 83036; 99212

== ENCOUNTER 2024-05-11 13:55 | Outpatient (AMB) | payer OTHER, SELFPAY ==
--- NOTE | 2024-05-11 14:06 | A.OFFVIS_ITS ---
Intake Visit Reasons: R leg pain/ micro done 07/2023 Intake Note: Patient presents for right leg pain. Patient has pain upon standing on right leg. Foot and toe pain. Has to put pressure on leg to feel better. Had a procedure back in May 2023 and has felt pain in her leg since then. Accompanied by: Daughter Allergies Crustaceans Allergy (Severe, Uncoded 04/28/24 08:18) ANAPHYLAXIS HPI HPI R leg pain/ micro done 07/2023: Details: Mary, a pleasant 78-year-old Syriac-speaking only female who is accompanied by her daughter and automotive parts interpreter today, is presenting for concerns of right lower extremity pain, bilateral lower extremity swelling, and tingling. Complaints include pain over varicosities, swelling of lower extremities, cramping, fatigue, and heaviness of the lower extremities. It has been affecting their daily activities including walking, standing, and physical activity. It is noted more so in right leg. She states this pain has been going on since her microphlebectomy in June of last year. Patient had a right lower extremity microphlebectomy on 07/04/2023. Patient denies any history of DVT/ PE. Patient denies any history of phlebitis. Trial of compression includes - elevation and intermittent compression stockings They now present for vascular evaluation regarding their varicose veins. [facility] Medical History Diabetes Hypertension Social History Alcohol intake: never Patient Tobacco Use Status: Never used Tobacco Review of Systems Const Reports as per HPI and Denies weakness ENT Reports Normal hearing present and Denies dizziness Card Reports as per HPI, Denies chest pain, Denies chest pain at rest, Denies chest pain with activity, Denies dyspnea and Denies dyspnea on exertion Resp Reports as per HPI, Denies cough, Denies dyspnea and Denies dyspnea on exertion GI Reports as per HPI, Denies abdominal pain, Denies nausea and Denies vomiting Musc Denies numbness Skin/Breast Reports as per HPI, Denies erythema and Denies wounds Neuro Reports Normal hearing present, Denies dizziness, Denies numbness, Denies Sensory deficit (Neuro) and Denies weakness Psych Reports no additional complaints Endo Reports no additional complaints Physical Exam Const General: healthy appearing and no acute distress Orientation/consciousness: patient oriented x3 HEENT Head: Yes normal to inspection Ears: hearing grossly normal bilaterally Mouth: Normal oral and palatal mucosa present Resp Effort & Inspection: normal respiratory effort and able to speak in complete sentences Auscultation: clear to auscultation bilaterally Cardio Jugular venous distension: no JVD Rate: regular rate Rhythm: regular rhythm Heart sounds: S1 normal heart sound present and S2 normal heart sound present Bruits: no abdominal aortic bruits, no carotid bruits, no femoral bruits and no renal bruits Peripheral pulses: Peripheral pulses 2+ throughout GI Inspection: Yes normal to inspection Palpation (GI): No Abdominal aortic bruit present Skin General skin exam: no rashes or lesions noted Wounds: no wounds Hair: normal Neuro General: patient oriented x3 Cranial nerves: Yes Normal hearing present Cognition (Neuro): normal cognition Gait exam (Neuro): Normal gait present Motor exam (neuro): 5/5 motor strength present throughout Sensory Exam: No Sensory deficit (Neuro) Extrem Other: Bilateral lower extremities: + 1 peripheral edema noted. Palpable DP pulses. Right lower extremity: No tortuosity noted CEAP: C - 3 E - primary A - superficial P - reflux General: Yes normal to inspection, Yes full ROM, Yes capillary refill normal and Yes normal gait Assessment & Plan Assessment & Plan (1) Varicose veins of right lower extremity with inflammation: Comment: 07/04/2023 - right leg microphlebectomy Code(s): I83.11 - Varicose veins of right lower extremity with inflammation Category: Medical Plan: Mary is presenting today as concerns for right lower extremity pain along with bilateral lower extremity swelling. She is status post microphlebectomy of the right lower extremity in June of 2023. She states the pain and swelling has been occurring since then. In short, the patient has evidence of venous insufficiency. I have discussed the pathophysiology with the patient. In addition I have provided informational material regarding venous disease to the patient. We have discussed conservative measures including compression, elevation, and exercise. I have taken the liberty of ordering venous insufficiency testing with the patient. They will follow up with me after testing. The patient had an opportunity to ask questions regarding the treatment plan. All questions were answered. Imaging studies, laboratory studies and physical exam results were discussed and reviewed in detail. No major barriers to understanding were identified. The patient expressed understanding and agreement with the above treatment plan. The patient is aware they should contact our office by phone for worsening of the current condition or the appearance of new symptoms. Thank you for allowing me to participate in the vascular care of this patient. If you have any questions or concerns regarding the treatment for the above condition please do not hesitate to contact me. The office telephone contact is [phone]. This note is constructed using voice recognition software. While every effort has been made to ensure accuracy, hydrodynamics professor errors may have been included. Thank you for allowing me to participate in the care of your patient. Yours sincerely, LAZARO Simmons Orders: Orders US venous duplex LE BI 1 Week I83.11 - Varicose veins of right lower extremity with inflammation Coding Level of Care Code Est Pt Level 4 (76586) Diagnoses Varicose veins of right lower extremity with inflammation I83.11
== END 2024-05-11 14:34 | disposition home or self-care (01) ==
PROVIDERS: PCP Internal Medicine Geriatric Medicine; Visit Provider Surgery Vascular Surgery
DX: I83.11 Varicose veins of right lower extremity with inflammation (principal)
CPT/HCPCS: 99214

== ENCOUNTER → 2024-05-11 13:55 | Outpatient (BNVA) | payer OTHER, SELFPAY | PROVIDERS: PCP Internal Medicine Geriatric Medicine; Visit Provider Surgery Vascular Surgery | DX: I83.11 Varicose veins of right lower extremity with inflammation (principal) | CPT/HCPCS: 99212 ==

== ENCOUNTER 2024-06-07 07:36 | Outpatient (REF) | payer OTHER, SELFPAY ==
--- NOTE | ~2024-06-07 | US_ITS ---
EXAMINATION: US LOWER EXTREMITY VENOUS (REFLUX EXAM), BILATERAL CLINICAL INFORMATION: Varices with inflammation, right lower extremity. COMPARISON: Ultrasound venous duplex dated April 24, 2023 demonstrated segmental reflux right greater saphenous vein above the knee and severe reflux in the left small saphenous vein distally.. TECHNIQUE: Color flow triplex imaging and compression Doppler was performed to evaluate both the deep and the superficial systems bilaterally. To evaluate the superficial system, the examination was performed in the upright position. Color-flow Doppler ultrasound and compression ultrasound were utilized. In addition, maneuvers were utilized to demonstrate reflux. FINDINGS: 1. DEEP VENOUS ULTRASOUND OF THE RIGHT LOWER EXTREMITY: Common Femoral Vein: Compressible, normal respiratory variation and augmented flow. Femoral Vein: Compressible, normal color flow and augmentation. Popliteal Vein: Compressible, normal augmentation. Deep Reflux: There is widening 2296 ms reflux in the deep system at the mid common femoral vein.. There is no evidence of a Flores's cyst. 2. SUPERFICIAL ULTRASOUND WITH DOPPLER OF RIGHT LOWER EXTREMITY: GREAT SAPHENOUS VEIN: Saphenofemoral Junction: 0.5 cm; Reflux: 0 ms Proximal Thigh: 0.3 cm; Reflux: 0 ms Mid Thigh: 0.2 cm; Reflux: 0 ms Distal Thigh: 0.2 cm; Reflux: 0 ms At Knee: 0.2 cm; Reflux: No more than 2436 ms Proximal Calf: 0.2 cm; Reflux: 0 ms Mid Calf: 0.1 cm; Reflux: 0 ms Distal Calf: 2.1 cm; Reflux: 0 ms DUPLICATED MEDIAL GREAT SAPHENOUS VEIN: Diameter: None imaged Reflux: NA DUPLICATED LATERAL GREAT SAPHENOUS VEIN: Diameter: 0.3 Reflux: NA SMALL SAPHENOUS VEIN: Saphenopopliteal Junction: 0.1 cm; Reflux: 0 ms Proximal: 0.1 cm; Reflux: 0 ms Distal: 0.1 cm; Reflux: 0 ms VEIN OF GIACOMINI: Size: NA Reflux: NA PERFORATORS: Location: None imaged Size: NA Reflux: NA VARICOSITIES: Location: None imaged. Size: NA Reflux: NA 3. DEEP VENOUS ULTRASOUND OF THE LEFT LOWER EXTREMITY: Common Femoral Vein: Compressible, normal respiratory variation and augmented flow. Femoral Vein: Compressible, normal color flow and augmentation. Popliteal Vein: Compressible, normal augmentation. Deep Reflux: There is no evidence of reflux in the deep system in either the common femoral vein, superficial femoral or the popliteal vein. There is no evidence of a Flores's cyst. 4. SUPERFICIAL ULTRASOUND WITH DOPPLER OF LEFT LOWER EXTREMITY: GREAT SAPHENOUS VEIN: Saphenofemoral Junction: 0.5 cm; Reflux: 0 ms Proximal Thigh: 0.6 cm; Reflux: 0 ms Mid Thigh: 0.3 cm; Reflux: 0 ms Distal Thigh: 0.2 cm; Reflux: 0 ms At Knee: 0.3 cm; Reflux: 0 ms Proximal Calf: 0.2 cm; Reflux: 0 ms Mid Calf: 0.2 cm; Reflux: 0 ms Distal Calf: 0.2 cm; Reflux: 0 ms DUPLICATED MEDIAL GREAT SAPHENOUS VEIN: Diameter: None imaged Reflux: NA DUPLICATED LATERAL GREAT SAPHENOUS VEIN: Diameter: 0.3 Reflux: NA SMALL SAPHENOUS VEIN: Saphenopopliteal Junction: 0.3 cm; Reflux: 0 ms Proximal: 0.2 cm; Reflux: 0 ms Distal: 0.2 cm; Reflux: 0 ms VEIN OF GIACOMINI: Size: NA Reflux: NA PERFORATORS: Location: None imaged Size: NA Reflux: NA VARICOSITIES: Location: None Imaged Size: NA Reflux: NA US/US venous insuf bilat IMPRESSION: Right: Venous insufficiency, right great saphenous vein at the level of the knee. Venous insufficiency at the mid right common femoral vein. Left: No venous insufficiency. Electronically signed by: James Jo MD 06/08/2024 08:20 AM [facility]
--- OUTSIDE RECORDS SUMMARY | 2024-06-07 07:39 | XMS_ITS | Encounter Summary ---
Author Organization [employer] Address [address] [place] [address] Care Team Providers Care Frame Maker Name Role Phone Name, Salomón REECE Primary Care Provider [phone] Reason for Visit * Reason Onset Date Comments Medication Question 04/28/2024 Encounter Details Date Type Department Care Team ([facility] Contact Info) Description 04/28/2024 Telephone [facility] [address] [place], [place] [phone] Name, MD Salomón [address] [place] [address] Medication Question Social History Tobacco Use Types Packs/Day Years Used Date Smoking Tobacco: Never Passive Smoke Exposure: Never Smokeless Tobacco: Never Alcohol Use Standard Drinks/Week Comments Never 0 (1 standard drink = 0.6 oz pur e alcohol) Depression Answer Date Recorded Patient Health Questionnaire-9 Score 0 09/29/2023 Patient Health Questionnaire-9 Score 0 09/29/2023 Last PHQ-9: Questionnaire Data Not on file 0 09/29/2023 Housing Stability Answer Date Recorded What is your housing situation today? I have chica vega 09/29/[address] you li ve. Do you have problems with any of the following? None of the above 09/29/2023 Food Insecurity Answer Date Recorded Within the past 12 months, y ou worried that your food would run out before you got money to buy more: Never True 09/29/2023 Within the past 12 months,th e food you bought just didn't last and you didn't have enough money to get more: Never True Transportation Answer Date Recorded In the past 12 months, has l ack of transportation kept you from medical appts, meetings, work or from getting things needed for daily living? No 09/29/2023 Utilities Answer Date Recorded In the past 12 months, has t he electric, gas, oil or water company threatened to shut off services in your home? No 09/29/2023 Depression Answer Date Recorded Patient Health Questionnaire-2 Score 0 09/29/2023 Comments Unknown Sex and Gender Information Value Date Recorded Sex Assigned at Female 03/11/2022 10:16 AM EDT Legal Sex Female 10:16 AM EDT Gender Identity Female 03/11/2022 10:16 AM EDT Sexual Orientation Choose not to disclose 2021 10:16 AM EDT documented as of this encounter Miscellaneous Notes * Telephone Encounter - Virgie Kaiser RN - 05/14/2024 9:13 AM EST TC placed to pt via [employer] proposal [place] ([place] [id number]). No answer, LVM to return call to the office and ask to speak to the blue team nurses. * Telephone Encounter - Jerrod Valentine - 05/14/2024 8:16 AM EST Tc from pt returning call in regards Lantus Insulin , * Telephone Encounter - Virgie Kaiser RN - 04/28/2024 11:58 AM EST TC placed to pharmacy regarding lantus insulin. Pharmacy reported the prescription is still active and a refill is available on 05/07/24. TC placed to pt via BLS proposal manager writer (Jane ID#[id number]). No answer, lvm to return call and ask to speak to the blue team nurses. * Telephone Encounter - Fernanda Westbrook - 04/28/2024 8:03 AM EST Tc from pt daughter requesting a call back in regards to lantus insulin , states they were advised by pharmacist script was discontinued however underwriter seeleonarda script is still active on med list last sent on 01/30/24. Please contact at [phone] documented in this encounter Plan of Treatment Not on file documented as of this encounter Visit Diagnoses Not on filedocumented in this encounter Additional Health Concerns Assessment Noted Time PHQ-9 Depression Total Score: 0 09/29/19 11:28 AM EDT documented as of this encounter Care Teams Frame Maker Relationship Specialty Start Date End Date Name, MD Salomón [address] [place] [address] PCP - General Family Medicine 12/07/18 documented as of this encounter
--- OUTSIDE RECORDS SUMMARY | 2024-06-07 07:39 | XMS_ITS | Encounter Summary ---
Author Organization [employer] Address [address] [place] [address] Care Team Providers Care Chemical Compounder Name Role Phone Name, Salomón REECE Primary Care Provider [phone] Reason for Visit * Reason Comments Med Refill Encounter Details Date Type Department Care Team ([facility] st Contact Info) Description 01/30/2024 Refill [facility] [address] [place], [place] [phone] Name, MD Salomón [address] [place] [address] Social History Tobacco Use Types Packs/Day Years [...] AM EDT documented as of this encounter Plan of Treatment Not on file documented as of this encounter Visit Diagnoses Not on filedocumented in this encounter Additional Health Concerns Assessment Noted Time PHQ-9 Depression Total Score: 0 09/29/19 24 11:28 AM EDT documented as of this encounter Care Teams Chemical Compounder Relationship Specialty Start Date End Date Name, MD Salomón [address] [place] [id number] PCP - General Family Medicine 12/07/18 documented as of this encounter
--- OUTSIDE RECORDS SUMMARY | 2024-06-07 07:39 | XMS_ITS | Encounter Summary ---
Author Organization [employer] Address [address] [place] [address] Care Team Providers Care Care Tech Name Role Phone Name, Salomón REECE Primary Care Provider [phone] Reason for Visit * Reason Comments Med Refill Encounter Details Date Type Department Care Team ([facility] st Contact Info) Description 01/30/2024 Refill [facility] [address] [place], [place] [phone] Connie Najera MD [address] [place], [place] [phone] Depression, unspecified depression type Social History Tobacco Use Types Packs/Day Years [...] documented as of this encounter Visit Diagnoses Diagnosis Depression, unspecified depression type documented in this encounter Additional Health Concerns Assessment Noted Time PHQ-9 Depression Total Score: 0 09/29/19 24 11:28 AM EDT documented as of this encounter Care Teams Care Tech Relationship Specialty Start Date End Date Name, MD Salomón [address] [place] [address] PCP - General Family Medicine 12/07/18 documented as of this encounter
--- OUTSIDE RECORDS SUMMARY | 2024-06-07 07:39 | XMS_ITS | Encounter Summary ---
Author Organization [employer] Address [address] [facility] [address]t [place] [address] Care Team Providers Care Human Resource Intern Name Role Phone Name, Salomón REECE Primary Care Provider [phone] Reason for Visit * Reason Onset Date Comments Nurse Triage 01/03/2023 Encounter Details Date Type Department Care Team ([facility] st Contact Info) Description 01/03/2023 Telephone [facility] MEDICINE [address] [place], [place] [phone] Name, MD Salomón [address] [place] [address] Nurse Triage Social History Tobacco Use Types Packs/Day Years Used Date Smoking Tobacco: Never Passive Smoke Exposure: Never Smokeless Tobacco: Never Depression Answer Date Recorded Patient Health Questionnaire-9 [...] encounter Miscellaneous Notes * Telephone Encounter - Patricia Arroyo RN - 01/03/2023 10:50 AM EDT Triage call with [place] Certified Neurodiagnostic Technologist [place] [id number], Certified Neurodiagnostic Technologist not needed. Called back speaking with daughter IKE Lafleur, Pt has had rash on neck for over a week now. Rash is described as darkred blood spots that are very itchy. Pimple like almost hive like. Daughter reports has tried home care and it is just spreading in area. Advised to come to [facility] today for Pt to be seen by provider and daughter agreed. Daughter asked if needs to bring insurance cards, Insurance is verified as activeprior to coming to facility and daughter informed. Daughter agrees with disposition. Protocol Used: Rash or Redness - Localized (Adult) Protocol-Based Disposition: See in Office or Video Visit Today or Tomorrow Video visit not offered Positive Triage Question: * Pimples (localized) and no improvement after using CARE ADVICE * All higher-acuity triage questions were negative Care Advice Discussed: * Reassurance and Education - Mild Localized Rash * Avoid the Cause * Wash the Area * Cold Pack for Mild Itching or Mild Pain * Hydrocortisone Cream for Itching * Don't Scratch * Contagiousness * Expected Course * Reasons To Call Back - Rash spreads or becomes worse - Rash lasts longer than 1 week - You become worse * Telephone Encounter - Fernanda Westbrook - 01/03/2023 9:57 AM EDT Symptom: Rash or Redness on One Body Area Only Outcome: Talk to a nurse or provider within 15 minutes Reason: Dark blood red spots (not pink) The caller accepted this outcome Please contact at [phone] Tamazight documented in this encounter Plan of Treatment Not on file documented as of this encounter Visit Diagnoses Not on filedocumented in this encounter Additional Health Concerns Assessment Noted Time PHQ-9 Depression Total Score: 0 09/05/19 23 3:29 PM EDT documented as of this encounter Care Teams Human Resource Intern Relationship Specialty Start Date End Date Name, MD Salomón [address] [place] [address] PCP - General Family Medicine 12/07/18 documented as of this encounter
--- OUTSIDE RECORDS SUMMARY | 2024-06-07 07:39 | XMS_ITS | Encounter Summary ---
Author Organization [employer] Address [address] [facility] 7t [place] [address] Care Team Providers Care Manager Grant Name Role Phone Name, Salomón REECE Primary Care Provider [phone] Reason for Visit * Reason Onset Date Comments Durable Medical Equipment 05/27/2023 Encounter Details Date Type Department Care Team ([facility] Contact Info) Description 05/27/2023 Telephone [facility] MEDICINE [address] [place], [place] [phone] Name, MD Salomón [address] [place], [place] [phone] Durable Medical Equipment Social History Tobacco Use Types Packs/Day Years [...] encounter Miscellaneous Notes * Telephone Encounter - Puma Bynum - 06/12/2023 9:55 AM EST Tc from [facility] calling in regards to Rollator walker stated in message prior and provided a fax number. . * Telephone Encounter - Fernanda Westbrook - 05/27/2023 1:26 PM EST Tc from Mary daughter requesting a script for a rolling walker with seat and 4 wheels. Please contact at [phone] documented in this encounter Plan of Treatment Not on file documented as of this encounter Visit Diagnoses Not on filedocumented in this encounter Additional Health Concerns Assessment Noted Time PHQ-9 Depression Total Score: 0 09/05/19 23 3:29 PM EDT documented as of this encounter Care Teams Manager Grant Relationship Specialty Start Date End Date Name, MD Salomón [address] [place] [address] PCP - General Family Medicine 12/07/18 documented as of this encounter
--- OUTSIDE RECORDS SUMMARY | 2024-06-07 07:39 | XMS_ITS | Encounter Summary ---
Author Organization [employer] Address [address] [facility] [address] [place] [address] Care Team Providers Care Test Kitchen Home Economist Name Role Phone Name, Salomón REECE Primary Care Provider [phone] Reason for Visit * Reason Onset Date Comments Referral 01/14/2023 Encounter Details Date Type Department Care Team ([facility] st Contact Info) Description 01/14/2023 Telephone [facility] MEDICINE [address] [place], [place] [phone] Name, MD Salomón [address] [place] [address] Referral Social History Tobacco Use Types Packs/Day Years Used Date Smoking Tobacco: Never Passive Smoke Exposure: Never Smokeless Tobacco: Never Depression Answer Date Recorded Patient Health Questionnaire-9 Score 0 09/04/2022 Depression Answer Date Recorded Patient Health Questionnaire-2 Score 0 09/04/2022 Comments Unknown Sex and Gender Information Value Date Recorded Sex Assigned at Female 03/11/2022 10:16 AM EDT Legal Sex Female 10:16 AM EDT Gender Identity Female 03/11/2022 10:16 AM EDT Sexual Orientation Choose not to disclose 2021 10:16 AM EDT documented as of this encounter Miscellaneous Notes * Telephone Encounter - Chasidy Almonte - 01/15/2023 1:21 PM EDT Tc from patients daughter requesting status. Advised of message below. * Telephone Encounter - Xiomy Alexander RN - 01/14/2023 1:57 PM EDT Pt evaluated in [facility] 01/10/23 for allergic reaction, hyperglycemia. Pt was recommended to continue current treatment for rash and advised to increase Lantus to 26u daily. T/C placed to pt for status check via [facility] Esteban. Pt reports that itching on her face is nearly gone. Reports she is still having lots of itching in her body. Recommended that pt come to [facility] for evaluation. Pt states she will need to check with her daughter who brings her to appointments. Referral request sent to pcp. * Telephone Encounter - Chasidy Almonte - 01/14/2023 1:36 PM EDT Tc from patients daughter calling in regards to Allergy & Immunology referral. States office doesn't have a referral on file. Patients daughter states she needs a urgent appt or a call as to whenreferral is sent. documented in this encounter Plan of Treatment Not on file documented as of this encounter Visit Diagnoses Not on filedocumented in this encounter Additional Health Concerns Assessment Noted Time PHQ-9 Depression Total Score: 0 09/05/19 23 3:29 PM EDT documented as of this encounter Care Teams Test Kitchen Home Economist Relationship Specialty Start Date End Date Name, MD Salomón [address] [place] [address] PCP - General Family Medicine 12/07/18 documented as of this encounter
--- OUTSIDE RECORDS SUMMARY | 2024-06-07 07:39 | XMS_ITS | Clinical Summary ---
Author Organization [employer] Address [address] [place] [address] 7t [place] [address] Care Team Providers Care Straightener And Aligner Name Role Phone Name, Salomón REECE Primary Care Provider [phone] Allergies Active Allergy Reactions Criticality Noted Date Comments Ibuprofen 05/24/2013 Shellfish Allergy Anaphylaxis High 01/08/2023 Medications fluticasone (Flonase) 50 MCG/ACT nasal spray Use 1 spray in each nostril once daily 1 Active UltiCare Short Pen Goodrich 31G X 8 MM miscIndications: Type 2 diabetes mellitus with other specified complication, unspecified whether custodial insulin use ([facility]) USE DIRECTED 4 - 5 TIMES PER DAY 100 each 3 Active TRUEplus Lancets 33G miscIndications: Type 2 diabetes mellitus with other specified complication, unspecified whether watermelon inspector insulin use ([facility]) TEST BLOOD SUGAR FOUR TIMES DAILY 100 each 3 Active cetirizine (ZyrTEC) 5 MG tablet Take 1 tablet (5 mg) by mouth in the morning for 10 days. 10 tablet 3 Active Acetaminophen Extra Strength 500 MG tablet TAKE 1 TABLET BY MOUTH EVERY 8 HOURS NEEDED FOR PAIN MODERATE 90 tablet 3 Active semaglutide (Ozempic, 1 MG/DOSE,) 4 MG/3ML solution pen-injectorIndi cations:Type 2 diabetes mellitus with other specified complication, unspecified whether watermelon inspector insulin use ([facility]) Inject 1 mg under the skin 1 (one) time per week. 1 each 4 Active atorvastatin (Lipitor) 80 MG tablet TAKE 1 TABLET BY MOUTH AT BEDTIME 90 tablet 3 4 Active metFORMIN XR (Glucophage-XR) 500 MG 24 hr tablet TAKE 2 TABLETS BY MOUTH ONCE DAILY IN THE MORNING 180 tablet 3 4 Active amLODIPine (Norvasc) 10 MG tablet TAKE 1 TABLET BY MOUTH AT BEDTIME 90 tablet 3 4 Active Alcohol Swabs (Alcohol Prep) 70 % pads USE DIRECTED FOUR TIMES DAILY 100 each 11 4 Active cholecalciferol (Vitamin D-3) 25 MCG tabletIndication s:Vitamin D deficiency TAKE 1 TABLET BY MOUTH EVERY MORNING 90 tablet 1 4 Active PARoxetine (Paxil) 20 MG tablet TAKE 1 TABLET BY MOUTH EVERY MORNING 90 tablet 1 4 Active insulin glargine (Lantus SoloStar) 100 UNIT/ML pen Inject 25 Units under the skin in the morning. 15 mL 2 4 Active glucose blood (FREESTYLE LITE) test strip TEST BLOOD SUGAR FOUR TIMES DAILY 100 strip 4 Active Aspirin Low Dose 81 MG EC tabletIndication s:Hypercholester olemia TAKE 1 TABLET BY MOUTH EVERY MORNING 90 tablet 3 4 Active losartan (Cozaar) 50 MG tablet TAKE 1 TABLET BY MOUTH EVERY MORNING 30 tablet 4 Active QUEtiapine (SEROquel) 25 MG tabletIndication s:Depression, unspecified depression type TAKE 1 TABLET BY MOUTH AT BEDTIME 30 tablet 4 Active Active Problems Problem Noted Date Diagnosed Date Acute hyperglycemia 02/19/2023 02/19/2023 Dermatitis 01/03/2023 Assessment & Plan (01/03/2023 10:21 PM EDT): R side of neck rash appears to be from dermatitis. Considering contact vs allergic dermatitis. -Prescribed Cetirizine 5 mg daily PRN. -Triamcinolone cream BID for no more than 10 d. -Return to clinic next wk if no improvement. Decreased hearing 04/28/2022 Illiteracy 04/28/2022 Memory problem 11/27/2021 Chronic constipation 10/26/2018 Primary insomnia 10/26/2018 Osteoarthritis of right knee 03/05/2018 Knee pain 01/22/2018 Tinea pedis 10/23/2017 Diabetes 10/23/2017 Assessment & Plan (01/03/2023 10:22 PM EDT): Today CBG is 288, and HbA1c is 10 <- 8.7 (08/2022). Reports fasting CBGs usually in the 180s to 190s. Urine dipstick neg for ketones. -Advise to increase her Lantus to 22 U from 20 U HS and, if in one wk, fasting CBGs >150, increase to 24 U HS. -Continue Trulicity 4.5 mg weekly. -F u w PCP in no more than 4 wk for DM2, and if needed annual exam. Severe major depression with psychotic features 05/08/2017 Acquired trigger finger 09/03/2011 Hypercholesterolemia 08/01/2011 Hypertension 08/01/2011 Assessment & Plan (01/03/2023 10:16 PM EDT): Noted elevated BP today, which is borderline for her age. Reports she is compliant w Rx, w no CV, neurologic, or resp Sx. -Advise to be compliant w meds. -Recommend to check BP at home. -F u w PCP to monitor BP in 4 wk. Obstructive sleep apnea syndrome 04/30/2011 Encounters Date Type Department Care Team Description 05/04/2024 Refill [facility] MEDICINE [address] [place] [address] Jess Argueta MD Depression, unspecified depression type 04/28/2024 Telephone [facility] MEDICINE [address] [place] [address] Salomón Manzo MD Medication Question 04/22/2024 Refill [facility]ICINE [address] [place] [address] Salomón Manzo MD Hypercholesterolemia 04/06/2024 Refill [facility] [address] [place] [address] Salomón Manzo MD Depression, unspecified depression type 03/17/2024 Telephone [facility] MEDICINE [address] [place] [address] Génesis Thao, BINH 03/11/2024 Refill [facility] [address] [place] [address] Salomón Manzo MD from Last 3 Months Immunizations Name Administration Dates Next Due Influenza High-dose Quadriva lent Preservative Free 02/19/2023,01/30/2022,03/15/2020 Influenza Injectable Quadriv alant Preservative Free IIV4 MDCK 07/09/2021 Influenza, High Dose Seasona l, Preservative Free 01/25/2019,03/05/2018,04/30/2017 Influenza, Split (incl. katya fied surface antigen) 02/10/2013,01/29/2012 Moderna Covid-19 Vaccine 12+ 07/21/2020,06/23/19 Pneumococcal Conjugate PCV 13 03/15/2020 Pneumococcal Polysaccharide PPSV23 03/13/2012 Tdap 02/19/2023,03/13/2012 Zoster, Recombinant 09/18/2021,07/09/2021 Zoster, live 05/08/2017 Social History Tobacco Use Types Packs/Day Years Used Date Smoking Tobacco: Never Passive Smoke Exposure: Never Smokeless Tobacco: Never Tobacco Cessation:Counseling Given: Not Answered Alcohol Use Standard Drinks/Week Comments Never 0 [...] not to disclose 2021 10:16 AM EDT Last Filed Vital Signs Vital Sign Reading Time Taken Comments Blood Pressure 132/50 09/29/2023 11:24 AM EDT Pulse 62 09/29/2023 11:24 AM EDT Temperature 36.2 ??C (97.1 ??F) 09/29/2023 11:24 AM E DT Respiratory Rate 16 09/29/2023 11:24 AM EDT Oxygen Saturation 97% 09/29/2023 11:24 AM EDT Inhaled Oxygen Concentration - - Weight 64.5 kg (142 lb 3.2 oz) 09/29/2023 11:24 AM EDT Height 147.3 cm (4' 10 ) 09/29/2023 11:24 AM EDT Body Mass Index 29.72 09/29/2023 11:24 AM EDT Plan of Treatment Health Maintenance Due Date Last Done Comments Eye Exam 1954 Alcohol/Substance Use Screening 1956 Hepatitis C Screening 1962 RSV Patients and Patients Aged 60 years or older (1 - 1-dose 75+ series) 07/27/2019 Diabetes: Hemoglobin A1C 12/30/2023 024, 07/01/2023, 05/23/2023, Additional history exists COVID-19 Vaccine ( season) 2024 07/21/2020, 06/23/2020 Influenza Vaccine (#1) 2024 3, 01/30/2022, 07/09/2021, Additional history exists Diabetes: Foot Exam 02/20/2024 02/19/2023, Diabetes: Urine Protein Screening 05/28/2024 05/28/2023, 12/04/2021, 12/19/2020, Additional history exists Lipid Panel 05/28/2024 05/28/2023, 11/10, 12/19/2020, Additional history exists Depression Screening 09/28/2024 09/29/2023, 09/29/19 SDOH Screening 09/28/2024 09/29/2023 Tobacco Screening 09/28/2024 09/29/2023 DTaP/Tdap/Td Vaccines (3 - Td or Tdap) 02/19/2033 02/19/2023, 03/13/2012 Pneumococcal Vaccine: 65+ Years Completed 03/15/2020, 03/13/2012 Zoster Vaccines Completed 09/18/2021, 06/13, 05/08/2017 HIB Vaccines Aged Out No longer eligi ble based on patient's age to complete this topic HPV Vaccines Aged Out No longer eligi ble based on patient's age to complete this topic Hepatitis A Vaccines Aged Out No long er eligible based on patient's age to complete this topic Hepatitis B Vaccines Aged Out No long er eligible based on patient's age to complete this topic IPV Vaccines Aged Out No longer eligi ble based on patient's age to complete this topic Meningococcal Vaccine Aged Out No brianne emmie eligible based on patient's age to complete this topic RSV under 20 months Aged Out No longe r eligible based on patient's age to complete this topic Rotavirus Vaccines Aged Out No longer eligible based on patient's age to complete this topic Procedures Procedure Name Priority Date/Time Associated Diagnosis Comments POCT GLYCATED HEMOGLOBIN, TOTAL Routine 09/29/2023 11:36 AM EDT Type 2 diabetes mellitus with other specified complication, unspecified whether custodial insulin use ([facility]) LIPID PANEL, STANDARD Routine 05/28/2023 9:05 AM EST Type 2 diabetes mellitus with other specified complication, unspecified whether watermelon inspector insulin use ([facility]) ALBUMIN, RANDOM URINE W/CREATININE Routine 05/28/2023 12:00 AM EST from Last 3 Months or Most Recently Relevant to Health Maintenance Results * (ABNORMAL) POCT HGB A1C (09/29/2023 11:36 AM EDT) Hemoglobin A1C 8.9(A) 4.0 - 6.0 % Blood 09/29/2023 11:3 6 AM EDT us Salomón Manzo MD POINT OF CARE TEST ENTER/EDIT OR DERABLES Final Result * Lipid Panel, Standard (05/28/2023 9:05 AM EST) Triglycerides 111 <150 mg/dL [facility] Comment:Desirable Triglyceri de: less than 150 mg/dLBorderline High Triglyceride 150-199 mg/dLHigh Triglyceride: 200-499 mg/dLVery High Triglyceride: greater than or equal to 5OO mg/dL Cholesterol 106 <200 mg/dL [facility] Comment:Desirable Cholestero l: less than 200 mg/dLBorderline High Cholesterol: 200-239 mg/dLHigh Cholesterol: greater than 239 mg/dL LDL Cholesterol Calculated 37 <100 mg/dL [facility] Comment:Desirable LDL: less than 100 mg/dLNear Optimal/Above Optimal LDL: 110- 129 mg/dLBorderline High LDL: 130-159 mg/dLHigh LDL: 160-189 mg/dLVery High LDL: greater than or equal to 190 mg/dL HDL Cholesterol 47 >40 mg/dL [facility] Comment:Desirable HDL: great er than 40 mg/dL Note: This HDL assay may give artificially low results in patients with liver disease. Blood Venous blood specimen / Unknown 05/28/2023 9:05 AM EST 05/28/2023 9:05 AM EST us Salomón Manzo MD LAB BLOOD ORDERABLES Final Resul t [facility] [address] [place] [address] [phone] * (ABNORMAL) Albumin, Random Urine W/Creatinine (05/28/2023 12:00 AM EST) Creatinine, Urine 34.38 mg/dL [facility] Microalbumin Urine 26.0 mg/L H [facility] Microalbum Creatinine Ratio Ur 75.6(H) <30 ug/mg cr [facility] Comment:Albumin/Creatinine R atio Reference Ranges: Normal: < 30 ug/mg creatinine Microalbuminuria: 30 - 300 ug/mg creatinineClinical Albuminuria: > 300 ug/mg creatinine 05/28/2023 05/28/2023 Salomón Manzo MD LAB URINE ORDERABLES Final Resul t [facility] [address] [place], [place] [phone] from Last 3 Months or Most Recently Relevant to Health Maintenance Insurance [facility] Care Teams Straightener And Aligner Relationship Specialty Start Date End Date Name, MD Salomón [address] [place] [address] PCP - General Family Medicine 12/07/18
--- OUTSIDE RECORDS SUMMARY | 2024-06-07 07:39 | XMS_ITS | Encounter Summary ---
Author Organization [employer] Address [address] [facility] 7t [place] [address] Care Team Providers Care Mechanical Piping Designer Name Role Phone Name, Salomón REECE Primary Care Provider [phone] Reason for Visit * Reason Onset Date Comments Nurse Triage 01/10/2023 Encounter Details Date Type Department Care Team ([facility] st Contact Info) Description 01/10/2023 Telephone [facility] MEDICINE [address] [place], [place] [phone] Name, MD Salomón [address] [place] [address] Nurse Triage Social History Tobacco Use Types [...] encounter Miscellaneous Notes * Telephone Encounter - Krystal Springer RN - 01/10/2023 4:09 PM EDT Per chart review pt seen at [facility] on 01/08/23 For allergic reaction. Instructed to continue prednisone, increase cetirizine and rx triamcinolone and hydroxyzine. Per daughter rash is worse. No fluid filled blisters. States face is compeletley swollen and this is new onset. Daughter advised to seek ER now as needs to be assessed and given medication to help reduce swelling to avoid airway involvement. Daughter agrees to call EMS now. Sent to team for status check PRN. Protocol Used: Face Swelling (Adult) Protocol-Based Disposition: Go to ED/UCC Now (or to Office with PCP Approval) Positive Triage Question: * Taking an JOSELIN Inhibitor medicine (e.g., benazepril/LOTENSIN, captopril/CAPOTEN, enalapril/VASOTEC, lisinopril/ZESTRIL) * All higher-acuity triage questions were negative Care Advice Discussed: * Reassurance and Education - Mild Face Swelling * Reasons To Call Back - You become worse * Telephone Encounter - Catie Strange - 01/10/2023 4:02 PM EDT Symptom: Allergic Reaction (General) Outcome: Talk to a nurse or provider within 15 minutes Reason: Face is swollen The caller accepted this outcome Please contact [facility] with [facility] [phone] ext [phone] documented in this encounter Plan of Treatment Not on file documented as of this encounter Visit Diagnoses Not on filedocumented in this encounter Additional Health Concerns Assessment Noted Time PHQ-9 Depression Total Score: 0 09/05/19 23 3:29 PM EDT documented as of this encounter Care Teams Mechanical Piping Designer Relationship Specialty Start Date End Date Name, MD Salomón [address] [place] [address] PCP - General Family Medicine 12/07/18 documented as of this encounter
== END 2024-06-07 07:37 | disposition home or self-care (01) ==
LOC: HO.US 07:36
PROVIDERS: PCP Internal Medicine Geriatric Medicine; Visit Provider Physician Assistant Surgical
DX: I83.11 Varicose veins of right lower extremity with inflammation (principal); I83.12 Varicose veins of left lower extremity with inflammation
CPT/HCPCS: 93970

== ENCOUNTER → 2024-06-07 07:37 | Outpatient (BNV) | payer OTHER, SELFPAY | PROVIDERS: PCP Internal Medicine Geriatric Medicine; Visit Provider Radiology Diagnostic Radiology | DX: I83.11 Varicose veins of right lower extremity with inflammation (principal) | CPT/HCPCS: 93970 ==

== ENCOUNTER 2024-06-24 09:19 | Outpatient (AMB) | payer OTHER, SELFPAY ==
--- NOTE | 2024-06-24 09:24 | MHC.OFFVIS ---
Intake Visit Reasons: follow up [facility] 06/07/24 Intake Note: Patient presents for follow up [facility]. Has pain that comes and goes. States her toes and feet swell on and off. Accompanied by: Daughter Allergies Crustaceans Allergy (Severe, Uncoded 04/28/24 08:18) ANAPHYLAXIS HPI HPI follow up [facility] 06/07/24: Details: Mary is presenting today on a follow up to ultrasound, performed on 06/07/2024. We utilized her daughter as an client development consultant. She states she continues with bilateral feet and calf swelling, numbness, and tingling. She states she has no new concerns this morning. [facility], [facility] Medical History Diabetes Hypertension Social History Alcohol intake: never Patient Tobacco Use Status: Never used Tobacco Review of Systems Const Reports as per HPI and Denies weakness ENT Reports Normal hearing present and Denies dizziness Card Reports as per HPI, Denies chest pain, Denies chest pain at rest, Denies chest pain with activity, Denies dyspnea and Denies dyspnea on exertion Resp Reports as per HPI, Denies cough, Denies dyspnea and Denies dyspnea on exertion GI Reports as per HPI, Denies abdominal pain, Denies nausea and Denies vomiting Musc Denies numbness Skin/Breast Reports as per HPI, Denies erythema and Denies wounds Neuro Reports Normal hearing present, Denies dizziness, Denies numbness, Denies Sensory deficit (Neuro) and Denies weakness Psych Reports no additional complaints Endo Reports no additional complaints Physical Exam Const General: healthy appearing and no acute distress Orientation/consciousness: patient oriented x3 HEENT Head: Yes normal to inspection Ears: hearing grossly normal bilaterally Mouth: Normal oral and palatal mucosa present Resp Effort & Inspection: normal respiratory effort and able to speak in complete sentences Auscultation: clear to auscultation bilaterally Cardio Jugular venous distension: no JVD Rate: regular rate Rhythm: regular rhythm Heart sounds: S1 normal heart sound present and S2 normal heart sound present Bruits: no abdominal aortic bruits, no carotid bruits, no femoral bruits and no renal bruits Peripheral pulses: Peripheral pulses 2+ throughout GI Inspection: Yes normal to inspection Palpation (GI): No Abdominal aortic bruit present Skin General skin exam: no rashes or lesions noted Wounds: no wounds Hair: normal Neuro General: patient oriented x3 Cranial nerves: Yes Normal hearing present Cognition (Neuro): normal cognition Gait exam (Neuro): Normal gait present Motor exam (neuro): 5/5 motor strength present throughout Sensory Exam: No Sensory deficit (Neuro) Extrem Other: Bilateral lower extremities: trace peripheral edema noted. Palpable DP pulses. Right lower extremity: No tortuosities noted General: Yes normal to inspection, Yes full ROM, Yes capillary refill normal and Yes normal gait Results Reviewed Results Reviewed: Brief summary of venous insufficiency testing is as follows: right great saphenous vein: negative right small saphenous vein: negative right accessory vein: none present left great saphenous vein: negative left small saphenous vein: negative left accessory vein: none present Please note there is no evidence of any venous aneurysms or significant tortuosity VV noted in the right - SSV distal, GSV mid thigh/knee/calf distal. Left - SSV prox/mid/distal Assessment & Plan Assessment & Plan (1) Varicose veins of right lower extremity with inflammation: Comment: 07/04/2023 - right leg microphlebectomy Code(s): I83.11 - Varicose veins of right lower extremity with inflammation Category: Medical Plan: Mary is presenting today as a follow up to venous insufficiency ultrasound, performed on 06/07/2024. There was no venous insufficiency found; however, there was some varicose veins noted bilaterally. The patient was mostly complaining of numbness and tingling, particularly in her feet, similar to a diabetic neuropathy. We discussed with the patient to continue with elevation, compression stockings, physical activity. We discussed following up with her PCP for assessment and evaluation of the numbness and tingling of her feet. We discussed the importance of blood glucose control and healthy well-balanced diet. We discussed that if she continues or notices any new varicose veins or varicosities, to please reach back out to our office. Thank you for allowing us to participate in the patient's care. If there are any questions or concerns, please do not hesitate to reach out to us. Coding Level of Care Code Est Pt Level 4 (99778) Diagnoses Varicose veins of right lower extremity with inflammation I83.11 Comment Review of venous insufficiency ultrasound
--- OUTSIDE RECORDS SUMMARY | 2024-06-24 09:43 | XMS_ITS | Encounter Summary ---
Author Organization [employer] Address [address] [place] [address] Care Team Providers Care Dairy Husbandman Name Role Phone Name, Salomón REECE Primary Care Provider [phone] Encounter Details Date Type Department Care Team ([facility] st Contact Info) Description 06/07/2024 Orders Only [facility] External Provider, [facility] Social History Tobacco Use Types Packs/Day Years [...] on file documented as of this encounter Procedures Procedure Name Priority Date/Time Associated Diagnosis Comments VASC US LOWER EXTREMITY VENOUS INSUFFICIENCY BILATERAL Routine 06/07/2024 8:39 AM EST documented in this encounter Results * VASC US Lower Extremity Venous Insufficiency Bilateral (06/07/2024 8:39 AM EST) 06/07/2024 8:39 AM EST Narrative [facility] - 06/08/2024 8:23 AM EST ? [facility] ?[address] [place] [address] ? Ultrasound Report ? Signed ? Patient: Mary Levi ?MR#: [id number] ?? 5 ? : 1945 ?Acct:[id number] ? Age/Sex: 78 / F ?ADM Date: 06/07/24 ? Loc: HO.US ? Attending Dr: Xiomy Gallegos PA-C ? Ordering Physician: Xiomy Gallegos PA-C ?? Date of Service: 06/07/24 ?? Procedure(s): US venous insuf bilat ?? Accession Number(s): [id number] ? cc: Xiomy Gallegos PA-C; Name,Salomón REECE ? EXAMINATION: ?? US LOWER EXTREMITY VENOUS (REFLUX EXAM), BILATERAL ? CLINICAL INFORMATION: ?? Varices with inflammation, right lower extremity. ? COMPARISON: ?? Ultrasound venous duplex dated April 24, 2023 demonstrated segmental ?? reflux right greater saphenous vein above the knee and severe reflux in ?? the left small saphenous vein distally.. ? TECHNIQUE: ?? Color flow triplex imaging and compression Doppler was performed to ?? evaluate both the deep and the superficial systems bilaterally. To ?? evaluate the superficial system, the examination was performed in the ?? upright position. Color-flow Doppler ultrasound and compression ?? ultrasound were utilized. In addition, maneuvers were utilized to ?? demonstrate reflux. ? FINDINGS: ? 1. DEEP VENOUS ULTRASOUND OF THE RIGHT LOWER EXTREMITY: ?? Common Femoral Vein: Compressible, normal respiratory variation and ?? augmented flow. ? Femoral Vein: Compressible, normal color flow and augmentation. ?? Popliteal Vein: Compressible, normal augmentation. ? Deep Reflux: There is widening 2296 ms reflux in the deep system at the ?? mid common femoral vein.. ? There is no evidence of a Flores's cyst. ? 2. SUPERFICIAL ULTRASOUND WITH DOPPLER OF RIGHT LOWER EXTREMITY: ? GREAT SAPHENOUS VEIN: ?? Saphenofemoral Junction: 0.5 cm; Reflux: 0 ms ?? Proximal Thigh: 0.3 cm; Reflux: 0 ms ?? Mid Thigh: 0.2 cm; Reflux: 0 ms ?? Distal Thigh: 0.2 cm; Reflux: 0 ms ?? At Knee: 0.2 cm; Reflux: No more than 2436 ms ?? Proximal Calf: 0.2 cm; Reflux: 0 ms ?? Mid Calf: 0.1 cm; Reflux: 0 ms ?? Distal Calf: 2.1 cm; Reflux: 0 ms ? DUPLICATED MEDIAL GREAT SAPHENOUS VEIN: ?? Diameter: None imaged ?? Reflux: NA ? DUPLICATED LATERAL GREAT SAPHENOUS VEIN: ?? Diameter: 0.3 ?? Reflux: NA ? SMALL SAPHENOUS VEIN: ?? Saphenopopliteal Junction: 0.1 cm; Reflux: 0 ms ?? Proximal: 0.1 cm; Reflux: 0 ms ?? Distal: 0.1 cm; Reflux: 0 ms ? VEIN OF GIACOMINI: ?? Size: NA ?? Reflux: NA ? PERFORATORS: ?? Location: None imaged ?? Size: NA ?? Reflux: NA ? VARICOSITIES: ?? Location: None imaged. ?? Size: NA ?? Reflux: NA ? 3. DEEP VENOUS ULTRASOUND OF THE LEFT LOWER EXTREMITY: ?? Common Femoral Vein: Compressible, normal respiratory variation and ?? augmented flow. ? Femoral Vein: Compressible, normal color flow and augmentation. ?? Popliteal Vein: Compressible, normal augmentation. ? Deep Reflux: There is no evidence of reflux in the deep system in ?? either the common femoral vein, superficial femoral or the popliteal ?? vein. ? There is no evidence of a Flores's cyst. ? 4. SUPERFICIAL ULTRASOUND WITH DOPPLER OF LEFT LOWER EXTREMITY: ? GREAT SAPHENOUS VEIN: ?? Saphenofemoral Junction: 0.5 cm; Reflux: 0 ms ?? Proximal Thigh: 0.6 cm; Reflux: 0 ms ?? Mid Thigh: 0.3 cm; Reflux: 0 ms ?? Distal Thigh: 0.2 cm; Reflux: 0 ms ?? At Knee: 0.3 cm; Reflux: 0 ms ?? Proximal Calf: 0.2 cm; Reflux: 0 ms ?? Mid Calf: 0.2 cm; Reflux: 0 ms ?? Distal Calf: 0.2 cm; Reflux: 0 ms ? DUPLICATED MEDIAL GREAT SAPHENOUS VEIN: ?? Diameter: None imaged ?? Reflux: NA ? DUPLICATED LATERAL GREAT SAPHENOUS VEIN: ?? Diameter: 0.3 ?? Reflux: NA ? SMALL SAPHENOUS VEIN: ?? Saphenopopliteal Junction: 0.3 cm; Reflux: 0 ms ?? Proximal: 0.2 cm; Reflux: 0 ms ?? Distal: 0.2 cm; Reflux: 0 ms ? VEIN OF GIACOMINI: ?? Size: NA ?? Reflux: NA ? PERFORATORS: ?? Location: None imaged ?? Size: NA ?? Reflux: NA ? VARICOSITIES: ?? Location: None Imaged ?? Size: NA ?? Reflux: NA ? / venous insuf bilat ?? IMPRESSION: ?? Right: Venous insufficiency, right great saphenous vein at the level of ?? the knee. Venous insufficiency at the mid right common femoral vein. ? Left: No venous insufficiency. ? Electronically signed by: ??James Jo MD ??06/08/2024 08:20 AM ?? EST RP ? Dictated By: ?James Norris MD ? Signed By: ?<Electronically signed by James Valentin MD in OV> ? 06/08/24 0820 ? DD/ 0839 ? TD/TT: 06/07/24 0955 ? Spiral Runner: ? Procedure Note Donotuseinterpreter, Image - 06/08/[address] [address] Ultrasound Report Signed Patient: Diixe Levi#: [id number] 5 : 5Acct:[id number] Age/Sex: 78 / FADM Date: 06/07/24 Loc: HO.US Attending Dr: Xiomy Gallegos PA-C Ordering Physician: Xiomy Gallegos PA-C Date of Service: 06/07/24 Procedure(s): US venous insuf bilat Accession Number(s): [id number] cc: Xiomy Gallegos PA-C; Name,Salomón REECE EXAMINATION: US LOWER EXTREMITY VENOUS (REFLUX EXAM), BILATERAL CLINICAL INFORMATION: Varices with inflammation, right lower extremity. COMPARISON: Ultrasound venous duplex dated April 24, 2023 demonstrated segmental reflux right greater saphenous vein above the knee and severe reflux in the left small saphenous vein distally.. TECHNIQUE: Color flow triplex imaging and compression Doppler was performed to evaluate both the deep and the superficial systems bilaterally. To evaluate the superficial system, the examination was performed in the upright position. Color-flow Doppler ultrasound and compression ultrasound were utilized. In addition, maneuvers were utilized to demonstrate reflux. FINDINGS: 1. DEEP VENOUS ULTRASOUND OF THE RIGHT LOWER EXTREMITY: Common Femoral Vein: Compressible, normal respiratory variation and augmented flow. Femoral Vein: Compressible, normal color flow and augmentation. Popliteal Vein: Compressible, normal augmentation. Deep Reflux: There is widening 2296 ms reflux in the deep system at the mid common femoral vein.. There is no evidence of a Flores's cyst. 2. SUPERFICIAL ULTRASOUND WITH DOPPLER OF RIGHT LOWER EXTREMITY: GREAT SAPHENOUS VEIN: Saphenofemoral Junction: 0.5 cm; Reflux: 0 ms Proximal Thigh: 0.3 cm; Reflux: 0 ms Mid Thigh: 0.2 cm; Reflux: 0 ms Distal Thigh: 0.2 cm; Reflux: 0 ms At Knee: 0.2 cm; Reflux: No more than 2436 ms Proximal Calf: 0.2 cm; Reflux: 0 ms Mid Calf: 0.1 cm; Reflux: 0 ms Distal Calf: 2.1 cm; Reflux: 0 ms DUPLICATED MEDIAL GREAT SAPHENOUS VEIN: Diameter: None imaged Reflux: NA DUPLICATED LATERAL GREAT SAPHENOUS VEIN: Diameter: 0.3 Reflux: NA SMALL SAPHENOUS VEIN: Saphenopopliteal Junction: 0.1 cm; Reflux: 0 ms Proximal: 0.1 cm; Reflux: 0 ms Distal: 0.1 cm; Reflux: 0 ms VEIN OF GIACOMINI: Size: NA Reflux: NA PERFORATORS: Location: None imaged Size: NA Reflux: NA VARICOSITIES: Location: None imaged. Size: NA Reflux: NA 3. DEEP VENOUS ULTRASOUND OF THE LEFT LOWER EXTREMITY: Common Femoral Vein: Compressible, normal respiratory variation and augmented flow. Femoral Vein: Compressible, normal color flow and augmentation. Popliteal Vein: Compressible, normal augmentation. Deep Reflux: There is no evidence of reflux in the deep system in either the common femoral vein, superficial femoral or the popliteal vein. There is no evidence of a Flores's cyst. 4. SUPERFICIAL ULTRASOUND WITH DOPPLER OF LEFT LOWER EXTREMITY: GREAT SAPHENOUS VEIN: Saphenofemoral Junction: 0.5 cm; Reflux: 0 ms Proximal Thigh: 0.6 cm; Reflux: 0 ms Mid Thigh: 0.3 cm; Reflux: 0 ms Distal Thigh: 0.2 cm; Reflux: 0 ms At Knee: 0.3 cm; Reflux: 0 ms Proximal Calf: 0.2 cm; Reflux: 0 ms Mid Calf: 0.2 cm; Reflux: 0 ms Distal Calf: 0.2 cm; Reflux: 0 ms DUPLICATED MEDIAL GREAT SAPHENOUS VEIN: Diameter: None imaged Reflux: NA DUPLICATED LATERAL GREAT SAPHENOUS VEIN: Diameter: 0.3 Reflux: NA SMALL SAPHENOUS VEIN: Saphenopopliteal Junction: 0.3 cm; Reflux: 0 ms Proximal: 0.2 cm; Reflux: 0 ms Distal: 0.2 cm; Reflux: 0 ms VEIN OF GIACOMINI: Size: NA Reflux: NA PERFORATORS: Location: None imaged Size: NA Reflux: NA VARICOSITIES: Location: None Imaged Size: NA Reflux: NA US/US venous insuf bilat IMPRESSION: Right: Venous insufficiency, right great saphenous vein at the level of the knee. Venous insufficiency at the mid right common femoral vein. Left: No venous insufficiency. Electronically signed by: James Jo MD 06/08/2024 08:20 AM EST RP Dictated By: James Norris MD Signed By: <Electronically signed by James Valentin MDin OV> 06/08/24819 DD/ 0839 TD/TT: 06/07/24 0955 Spiral Runner: [facility] External Provider CV VASC ULAR PROCEDURES Final Result Performing Organization Address City/State/[facility] Co de Phone Number [facility] [address] [place] [phone] documented in this encounter Visit Diagnoses Not on filedocumented in this encounter Additional Health Concerns Assessment Noted Time PHQ-9 Depression Total Score: 0 09/29/19 24 11:28 AM EDT documented as of this encounter Care Teams Dairy Husbandman Relationship Specialty Start Date End Date Name, MD Salomón [address] [place] [id number] PCP - General Family Medicine 12/07/18 documented as of this encounter
--- OUTSIDE RECORDS SUMMARY | 2024-06-24 09:43 | XMS_ITS | Encounter Summary ---
Author Organization [employer] Address [address] [place] [address] Care Team Providers Care Industrial Nurse Name Role Phone Name, Salomón REECE Primary Care Provider [phone] Reason for Visit * Reason Comments Med Refill Encounter Details Date Type Department Care Team ([facility] st Contact Info) Description 06/07/2024 Refill [facility] [address] [place], [place] [phone] Jess Argueta MD [address] [place], [place] [phone] Social History Tobacco Use Types Packs/Day Years [...] documented as of this encounter Care Teams Industrial Nurse Relationship Specialty Start Date End Date Name, MD Salomón [address] [place] [address] PCP - General Family Medicine 12/07/18 documented as of this encounter
--- OUTSIDE RECORDS SUMMARY | 2024-06-24 09:43 | XMS_ITS | Encounter Summary ---
Author Organization [employer] Address [address] [place] [address] Care Team Providers Care Char Conveyor Tender Name Role Phone Name, Salomón REECE Primary Care Provider [phone] Reason for Visit * Reason Comments Med Refill Encounter Details Date Type Department Care Team ([facility] st Contact Info) Description 06/22/2024 Refill [facility] [address] [place], [place] [phone] Name, MD Salomón [address] [place] [address] Social History Tobacco Use Types Packs/Day Years [...] documented as of this encounter Care Teams Char Conveyor Tender Relationship Specialty Start Date End Date Name, MD Salomón [address] [place] [id number] PCP - General Family Medicine 12/07/18 documented as of this encounter
--- OUTSIDE RECORDS SUMMARY | 2024-06-24 09:44 | XMS_ITS | Encounter Summary ---
Author Organization [employer] Address [address] [place] [address] Care Team Providers Care Language Teacher Name Role Phone Name, Salomón REECE Primary Care Provider [phone] Reason for Visit * Reason Onset Date Comments Durable Medical Equipment 05/27/2023 Encounter Details Date Type Department Care Team ([facility] Contact Info) Description 05/27/2023 Telephone [facility] [address] [place], [place] [phone] Name, MD Salomón [address] [place], [place] [phone] Durable Medical Equipment Social History Tobacco Use [...] seat and 4 wheels. Please contact at [phone] documented in this encounter Plan of Treatment Not on file documented as of this encounter Visit Diagnoses Not on filedocumented in this encounter Additional Health Concerns Assessment Noted Time PHQ-9 Depression Total Score: 0 09/05/19 23 3:29 PM EDT documented as of this encounter Care Teams Language Teacher Relationship Specialty Start Date End Date Name, MD Salomón [address] [place] [address] PCP - General Family Medicine 12/07/18 documented as of this encounter
--- OUTSIDE RECORDS SUMMARY | 2024-06-24 09:44 | XMS_ITS | Encounter Summary ---
Author Organization [employer] Address [address] [place] [address] Care Team Providers Care Assistant Men'S Lacrosse Coach Name Role Phone Name, Salomón REECE Primary Care Provider [phone] Reason for Visit * Reason Onset Date Comments Referral 01/14/2023 Encounter Details Date Type Department Care Team ([facility] st Contact Info) Description 01/14/2023 Telephone [facility] [address] [place], [place] [phone] Name, MD Salomón [address] [place] [address] Referral Social History Tobacco Use Types Packs/Day [...] 01/14/2023 1:57 PM EDT Pt evaluated in [facility] 01/10/23 for allergic reaction, hyperglycemia. Pt was recommended to continue current treatment for rash and advised to increase Lantus to 26u daily. T/C placed to pt for status check via [place] [employer]iff Neck Loader Esteban. Pt reports that itching on her face is nearly gone. Reports she is still having lots of itching in her body. Recommended that pt come to [facility] for evaluation. Pt states she will need [...] documented as of this encounter Care Teams Assistant Men'S Lacrosse Coach Relationship Specialty Start Date End Date Name, MD Salomón [address] [place] [address] PCP - General Family Medicine 12/07/18 documented as of this encounter
--- OUTSIDE RECORDS SUMMARY | 2024-06-24 09:44 | XMS_ITS | Clinical Summary ---
Author Organization [employer] Address [address] [place] [address] 7[address] [place] [address] Care Team Providers Care Tissue Coordinator Name Role Phone Name, Salomón REECE Primary Care Provider [phone] Allergies Active Allergy Reactions Criticality Noted Date Comments Ibuprofen 05/24/2013 Shellfish Allergy Anaphylaxis High 01/08/2023 Medications fluticasone (Flonase) 50 MCG/ACT nasal spray Use 1 spray in each nostril once daily 021 Active UltiCare Short Pen Gerry 31G X 8 MM miscIndication s:Type 2 diabetes mellitus with other specified complication, unspecified whether chcf insulin use ([facility]) USE DIRECTED 4 - 5 TIMES PER DAY 100 each 023 Active TRUEplus Lancets 33G miscIndication s:Type 2 diabetes mellitus with other specified complication, unspecified whether chcf insulin use ([facility]) TEST BLOOD SUGAR FOUR TIMES DAILY 100 each 023 Active cetirizine (ZyrTEC) 5 MG tablet Take 1 tablet (5 mg) by mouth in the morning for 10 days. 10 tablet 023 Active Acetaminophen Extra Strength 500 MG tablet TAKE 1 TABLET BY MOUTH EVERY 8 HOURS NEEDED FOR PAIN MODERATE 90 tablet 023 Active semaglutide (Ozempic, 1 MG/DOSE,) 4 MG/3ML solution pen-injectorIn dications:Type 2 diabetes mellitus with other specified complication, unspecified whether long term care pharmacist insulin use ([facility]) Inject 1 mg under the skin 1 (one) time per week. 1 each 024 Active atorvastatin (Lipitor) 80 MG tablet TAKE 1 TABLET BY MOUTH AT BEDTIME 90 tablet 3 024 Active metFORMIN XR (Glucophage-XR ) 500 MG 24 hr tablet TAKE 2 TABLETS BY MOUTH ONCE DAILY IN THE MORNING 180 tablet 3 Active amLODIPine (Norvasc) 10 MG tablet TAKE 1 TABLET BY MOUTH AT BEDTIME 90 tablet 3 024 Active Alcohol Swabs (Alcohol Prep) 70 % pads USE DIRECTED FOUR TIMES DAILY 100 each 11 Active cholecalcifero l (Vitamin D-3) 25 MCG tabletIndicati ons:Vitamin D deficiency TAKE 1 TABLET BY MOUTH EVERY MORNING 90 tablet 1 024 Active PARoxetine (Paxil) 20 MG tablet TAKE 1 TABLET BY MOUTH EVERY MORNING 90 tablet 1 024 Active Aspirin Low Dose 81 MG EC tabletIndicati ons:Hyperchole sterolemia TAKE 1 TABLET BY MOUTH EVERY MORNING 90 tablet 3 024 Active QUEtiapine (SEROquel) 25 MG tabletIndicati ons:Depression , unspecified depression type TAKE 1 TABLET BY MOUTH AT BEDTIME 30 tablet 3 025 Active losartan (Cozaar) 50 MG tablet TAKE 1 TABLET BY MOUTH EVERY MORNING 30 tablet 3 025 Active glucose blood (FREESTYLE LITE) test stripIndicatio ns:Type 2 diabetes mellitus with other specified complication, unspecified whether chcf insulin use ([facility]) TEST BLOOD SUGAR FOUR TIMES DAILY 100 strip 3 025 Active Lantus SoloStar 100 UNIT/ML pen INJECT 25 UNITS SUBCUTANEOUSLY EVERY MORNING 15 mL 2 025 Active insulin glargine (Lantus SoloStar) 100 UNIT/ML pen Inject 25 Units under the skin in the morning. 15 mL 2 024 2024 Discontinued glucose blood (FREESTYLE LITE) test strip TEST BLOOD SUGAR FOUR TIMES DAILY 100 strip 024 2024 Discontinued(R eorder (will not trigger notification to Pharmacy)) losartan (Cozaar) 50 MG tablet TAKE 1 TABLET BY MOUTH EVERY MORNING 30 tablet 024 2024 Discontinued QUEtiapine (SEROquel) 25 MG tabletIndicati ons:Depression , unspecified depression type TAKE 1 TABLET BY MOUTH AT BEDTIME 30 tablet 024 2024 Discontinued Active Problems Problem Noted Date Diagnosed Date [...] Encounters Date Type Department Care Team Description 06/22/2024 Refill [facility] MEDICINE [address] [place] [phone] Salomón Manzo MD 06/07/2024 Orders Only [facility] External Provider, [facility] 06/07/2024 Refill [facility] MEDICINE [address] [place] [address] Jess Argueta MD 06/07/2024 Refill [facility] MEDICINE [address] [place] [address] NameSalomón MD Depression, unspecified depression type; Type 2 diabetes mellitus with other specified complication, unspecified whether long term care pharmacist insulin use ([facility]) 05/04/2024 Refill [facility] MEDICINE [address] [place] [address] Jess Argueta MD Depression, unspecified depression type 04/28/2024 Telephone [facility] MEDICINE [address] [place] [address] Salomón Manzo MD Medication Question 04/22/2024 Refill [facility] MEDICINE [address] [place] [address] Salomón Manzo MD Hypercholesterolemia 04/06/2024 Refill [facility] MEDICINE [address] [place] [address] NameSalomón MD Depression, unspecified depression type from Last 3 Months Immunizations Name Administration Dates Next Due Influenza High-dose Quadriva lent Preservative Free 02/19/2023,01/30/2022,03/15/2020 Influenza Injectable Quadriv alant Preservative Free IIV4 MDCK 07/09/2021 Influenza, High Dose Seasona l, Preservative Free 01/25/2019,03/05/2018,04/30/2017 Influenza, Split (incl. kat[place] f[place] antigen) 02/10/2013,01/29/2012 Moderna Covid-19 Vaccine 12+ 07/21/2020,06/23/19 21 Pneumococcal Conjugate PCV 13 03/15/2020 Pneumococcal Polysaccharide [...] 2024 07/21/2020, 06/23/2020 Influenza Vaccine (#1) 2024 , 01/30/2022, 07/09/2021, Additional history exists Diabetes: Foot Exam 02/20/2024 02/19/2023, Diabetes: Urine Protein Screening 05/28/2024 05/28/2023, 12/04/2021, 12/19/2020, Additional history exists Lipid Panel 05/28/2024 05/28/2023, 11/10, 12/19/2020, Additional history exists Depression Screening 09/28/2024 09/29/2023, 09/29/19 24 SDOH Screening 09/28/2024 09/29/2023 Tobacco Screening 09/28/2024 09/29/2023 DTaP/Tdap/Td Vaccines (3 - Td or Tdap) 02/19/2033 02/19/2023, 03/13/2012 Pneumococcal Vaccine: 50+ Years Completed 03/15/2020, 03/13/2012 Zoster Vaccines Completed [...] Procedure Name Priority Date/Time Associated Diagnosis Comments [facility] LOWER EXTREMITY VENOUS INSUFFICIENCY BILATERAL Routine 06/07/2024 8:39 AM EST POCT GLYCATED HEMOGLOBIN, TOTAL Routine 09/29/2023 11:36 AM EDT Type 2 diabetes mellitus with other specified complication, unspecified whether long term care pharmacist insulin use (CMS/HCC) LIPID PANEL, STANDARD Routine 05/28/2023 9:05 AM EST Type 2 diabetes mellitus with other specified complication, unspecified whether chcf insulin use (CMS/HCC) ALBUMIN, RANDOM URINE W/CREATININE Routine 05/28/2023 12:00 AM EST from Last 3 Months or Most Recently Relevant to Health Maintenance Results * [facility] Lower Extremity Venous Insufficiency Bilateral (06/07/2024 8:39 AM EST) 06/07/2024 8:39 AM EST Narrative [facility] IMAGING - 06/08/2024 8:23 AM EST ? [facility] ?[address] ?[place] [address] ? Ultrasound Report ? Signed ? Patient: Gurmeet,Mary ?MR#: [id number] ?? 5 ? : 1945 ?Acct:[id number] ? Age/Sex: 78 / F ?ADM Date: 01/27/25 ? Loc: HO.US ? Attending Vira WILLIS-C ? Ordering Physician: Xiomy Gallegos PA-C ?? Date of Service: 06/07/24 ?? Procedure(s): US venous insuf bilat ?? Accession Number(s): [id number] ? cc: Xiomy Gallegos PA-C; Name,Salomón REECE [...] ?? Size: NA ?? Reflux: NA ? US/US venous insuf bilat ?? IMPRESSION: ?? Right: [...] DD/ 0839 ? TD/TT: 06/07/24 0955 ? Pipe Bowls Paint Trimmer: ? Procedure Note Donrayter, Image - 06/08/2024 [place] [id number] Ultrasound Report Signed Patient: Dixie Levi#: [id number] 5 : 5Acct:[id number] Age/Sex: 78 / FADM Date: 06/07/24 Loc: HO.US Attending Dr: Xiomy Gallegos PA-C Ordering Physician: Xiomy Gallegos PA-C Date of Service: 06/07/24 Procedure(s): US venous insuf bilat Accession Number(s): [id number] cc: Xiomy Gallegos PA-C; Name,Salomón REECE EXAMINATION: [...] by James Valentin MDin OV> 06/08/24819 DD/ TD/TT: 06/07/24 0955 Pipe Bowls Paint Trimmer: [facility] External Provider CV VASC ULAR PROCEDURES Final Result [facility] IMAGING [address] [place] [phone] * (ABNORMAL) POCT HGB A1C (09/29/2023 11:36 AM EDT) Hemoglobin A1C 8.9(A) 4.0 - 6.0 % Blood 09/29/2023 11:3 6 AM EDT Salomón Manzo MD POINT OF CARE TEST ENTER/EDIT OR DERABLES Final Result * Lipid Panel, Standard (05/28/2023 9:05 AM EST) Triglycerides 111 <150 mg/dL [facility] Comment:Desirable Triglyceri de: less than 150 mg/dLBorderline High Triglyceride 150-199 mg/dLHigh Triglyceride: 200-499 mg/dLVery High Triglyceride: greater than or equal to 5OO mg/dL Cholesterol 106 <200 mg/dL [facility] Comment:Desirable Cholestero l: less than 200 mg/dLBorderline High Cholesterol: 200-239 mg/dLHigh Cholesterol: greater than 239 mg/dL LDL Cholesterol Calculated 37 <100 mg/dL [facility] Comment:Desirable LDL: less than 100 mg/dLNear Optimal/Above Optimal LDL: 110- 129 mg/dLBorderline High LDL: 130-159 mg/dLHigh LDL: 160-189 mg/dLVery High LDL: greater than or equal to 190 mg/dL HDL Cholesterol 47 >40 mg/dL [facility] Comment:Desirable HDL: great er than 40 mg/dL Note: This HDL assay may give artificially low results in patients with liver disease. Blood Venous blood specimen / Unknown 05/28/2023 9:05 AM EST 05/28/2023 9:05 AM EST us Salomón Manzo MD LAB BLOOD ORDERABLES Final Resul t Performing Organization Address [facility] Co de Phone Number [facility] [address] [place] [phone] * (ABNORMAL) Albumin, Random Urine W/Creatinine (05/28/2023 12:00 AM EST) Creatinine, Urine 34.38 mg/dL [facility] Microalbumin Urine 26.0 mg/L [facility] Microalbum Creatinine Ratio Ur 75.6(H) <30 ug/mg cr [facility] Comment:Albumin/Creatinine R atio Reference Ranges: Normal: < 30 ug/mg creatinine Microalbuminuria: 30 - 300 ug/mg creatinineClinical Albuminuria: > 300 ug/mg creatinine 05/28/2023 05/28/2023 us Salomón Manzo MD LAB URINE ORDERABLES Final Resul t Performing Organization Address [facility]/ZIP Co de Phone Number [facility] [address] [place] [address] [phone] from Last 3 Months or Most Recently Relevant to Health Maintenance Insurance [facility] Care Teams Tissue Coordinator Relationship Specialty Start Date End Date Name, MD Salomón [address] [place] [address] PCP - General Family Medicine 12/07/18
--- OUTSIDE RECORDS SUMMARY | 2024-06-24 09:44 | XMS_ITS | Encounter Summary ---
Author Organization [employer] Address [address] [place] [address] Care Team Providers Care Labor Relations Or Personnel Negotiator Name Role Phone Name, Salomón REECE Primary Care Provider [phone] Reason for Visit * Reason Comments Med Refill Encounter Details Date Type Department Care Team ([facility] st Contact Info) Description 01/30/2024 Refill [facility] MEDICINE [address] [place], [place] [phone] Connie Najera MD [address] [place], [place] [phone] Depression, unspecified depression type Social History Tobacco [...] documented as of this encounter Care Teams Labor Relations Or Personnel Negotiator Relationship Specialty Start Date End Date Name, MD Salomón [address] [place] [address] PCP - General Family Medicine 12/07/18 documented as of this encounter
--- OUTSIDE RECORDS SUMMARY | 2024-06-24 09:44 | XMS_ITS | Encounter Summary ---
Author Organization [employer] Address [address] [facility] 7t [place] [address] Care Team Providers Care Power Generating Plant Operator Name Role Phone Name, Salomón REECE Primary Care Provider [phone] Reason for Visit * Reason Comments Med Refill Encounter Details Date Type Department Care Team ([facility] st Contact Info) Description 06/07/2024 Refill [facility] MEDICINE [address] [place], [place] [phone] Name, MD Salomón [address] [place] [address] Depression, unspecified depression type; Type 2 diabetes mellitus with other specified complication, unspecified whether exterminator insulin use ([facility]) Social History Tobacco Use Types Packs/Day Years [...] Visit Diagnoses Diagnosis Depression, unspecified depression type Type 2 diabetes mellitus with other specified complication, unspecified whether detention insulin use ([facility]) documented in this encounter Additional Health Concerns Assessment Noted Time PHQ-9 Depression Total Score: 0 09/29/19 24 11:28 AM EDT documented as of this encounter Care Teams Power Generating Plant Operator Relationship Specialty Start Date End Date Name, MD Salomón [address] [place] [address] PCP - General Family Medicine 12/07/18 documented as of this encounter
--- OUTSIDE RECORDS SUMMARY | 2024-06-24 09:44 | XMS_ITS | Encounter Summary ---
Author Organization [employer] Address [address] [facility] 7t [place] [address] Care Team Providers Care Barrel Bung Remover And Dumper Name Role Phone Name, Salomón REECE Primary Care Provider [phone] Reason for Visit * Reason Onset Date Comments Nurse Triage 01/10/2023 Encounter Details Date Type Department Care Team ([facility] st Contact Info) Description 01/10/2023 Telephone [facility] MEDICINE [address] [place], [place] [phone] Name, MD Salomón [address] [place] [address] Nurse Triage Social History Tobacco Use Types [...] EDT Per chart review pt seen [facility] on 01[facility]08[facility]23 For allergic reaction. Instructed [...] The caller accepted this outcome Please contact [facility] with [facility] [phone] documented in this encounter Plan of Treatment Not on file documented as of this encounter Visit Diagnoses Not on filedocumented in this encounter Additional Health Concerns Assessment Noted Time PHQ-9 Depression Total Score: 0 09/05/19 23 3:29 PM EDT documented as of this encounter Care Teams Barrel Bung Remover And Dumper Relationship Specialty Start Date End Date Name, MD Salomón [address] [place] [address] PCP - General Family Medicine 12/07/18 documented as of this encounter
--- OUTSIDE RECORDS SUMMARY | 2024-06-24 09:44 | XMS_ITS | Encounter Summary ---
Author Organization [employer] Address [address] [place] [address] Care Team Providers Care Oil Heaterman Name Role Phone Name, Salomón REECE Primary Care Provider [phone] Reason for Visit * Reason Comments Med Refill Encounter Details Date Type Department Care Team ([facility] st Contact Info) Description 01/30/2024 Refill [facility] MEDICINE [address] [place], [place] [phone] Name, MD Salomón [address] [place] [address] Social History Tobacco Use Types Packs/Day Years [...] documented as of this encounter Care Teams Oil Heaterman Relationship Specialty Start Date End Date Name, MD Salomón [address] [place] [address] PCP - General Family Medicine 12/07/18 documented as of this encounter
--- OUTSIDE RECORDS SUMMARY | 2024-06-24 09:44 | XMS_ITS | Encounter Summary ---
Author Organization [employer] Address [address] [facility] 7t [place] [address] Care Team Providers Care Shaker Tender Name Role Phone Name, Salomón REECE Primary Care Provider [phone] Reason for Visit * Reason Onset Date Comments Nurse Triage 01/03/2023 Encounter Details Date Type Department Care Team ([facility] st Contact Info) Description 01/03/2023 Telephone [facility] MEDICINE [address] [place], [place] [phone] Name, MD Salomón [address] [place] [address] Nurse Triage Social History Tobacco Use Types [...] Miscellaneous Notes * Telephone Encounter - Patricia rAroyo RN - 01/03/2023 10:50 AM EDT Triage call with [place] [id number], Front Maker not needed. Called back speaking with daughter IKE Lafleur, Pt has had rash on neck for over a week now. Rash is described as darkred blood spots that are very itchy. Pimple like almost hive like. Daughter reports has tried home care and it is just spreading in area. Advised to come to [facility] today for Pt to be seen [...] caller accepted this outcome Please contact at [phone] Danish documented in this encounter Plan of Treatment Not on file documented as of this encounter Visit Diagnoses Not on filedocumented in this encounter Additional Health Concerns Assessment Noted Time PHQ-9 Depression Total Score: 0 09/05/19 23 3:29 PM EDT documented as of this encounter Care Teams Shaker Tender Relationship Specialty Start Date End Date Name, MD Salomón [address] [place] [address] PCP - General Family Medicine 12/07/18 documented as of this encounter
== END 2024-06-24 09:38 | disposition home or self-care (01) ==
PROVIDERS: PCP Internal Medicine Geriatric Medicine; Visit Provider Physician Assistant Surgical
DX: I83.11 Varicose veins of right lower extremity with inflammation (principal)
CPT/HCPCS: 99214

== ENCOUNTER → 2024-06-24 09:19 | Outpatient (BNVA) | payer OTHER, SELFPAY | PROVIDERS: PCP Internal Medicine Geriatric Medicine; Visit Provider Physician Assistant Surgical | DX: I83.11 Varicose veins of right lower extremity with inflammation (principal) | CPT/HCPCS: 99212 ==

== ENCOUNTER 2024-08-09 13:27 | Outpatient (REF) | payer OTHER, SELFPAY ==
--- OUTSIDE RECORDS SUMMARY | 2024-08-09 15:09 | XMS_ITS | Encounter Summary ---
Author Organization [employer] Address [address] [facility] 7t [place] [address] Care Team Providers Care Media Analyst Name Role Phone Name, Salomón REECE Primary Care Provider [phone] Reason for Visit * Reason Onset Date Comments Nurse Triage 01/10/2023 Encounter Details Date Type Department Care Team ([facility] st Contact Info) Description 01/10/2023 Telephone [facility] MEDICINE [address] [place], [place] [phone] Name, MD Salomón [address] [place] [address] Nurse Triage Social History Tobacco Use Types [...] EDT Per chart review pt seen [facility] on 01/08/23 For allergic reaction. Instructed [...] The caller accepted this outcome Please contact [facility] with [facility] [phone] documented in this encounter Plan of Treatment Not on file documented as of this encounter Visit Diagnoses Not on filedocumented in this encounter Additional Health Concerns Assessment Noted Time PHQ-9 Depression Total Score: 0 09/05/19 23 3:29 PM EDT documented as of this encounter Care Teams Media Analyst Relationship Specialty Start Date End Date Name, MD Salomón [address] [place] [address] PCP - General Family Medicine 12/07/18 documented as of this encounter
--- OUTSIDE RECORDS SUMMARY | 2024-08-09 15:09 | XMS_ITS | Clinical Summary ---
Author Organization [employer] Address [address] [place] [address] 7t [place] [address] Care Team Providers Care Plaster Molder Name Role Phone Name, Salomón REECE Primary Care Provider Allergies Active Allergy Reactions Criticality Noted Date Comments Ibuprofen 05/24/2013 Shellfish Allergy Anaphylaxis High 01/08/2023 Medications fluticasone (Flonase) 50 MCG/ACT nasal spray Use 1 spray in each nostril once daily 021 Active UltiCare Short Pen [place] 31G X 8 MM miscIndication s:Type 2 diabetes mellitus with other specified complication, unspecified whether nursing home insulin use ([facility]) USE DIRECTED 4 - 5 TIMES PER DAY 100 each 11 023 Active cetirizine (ZyrTEC) 5 MG tablet [...] mellitus with other specified complication, unspecified whether nursing home insulin use ([facility]) Inject 1 mg under the skin 1 (one) time per week. 1 each 024 Active atorvastatin (Lipitor) 80 MG tablet TAKE 1 TABLET BY MOUTH AT BEDTIME 90 tablet 3 024 Active metFORMIN XR (Glucophage-XR ) 500 MG 24 hr tablet TAKE 2 TABLETS BY MOUTH ONCE DAILY IN THE MORNING 180 tablet 3 024 Active amLODIPine (Norvasc) 10 MG tablet TAKE 1 TABLET BY MOUTH AT BEDTIME 90 tablet 3 024 Active Alcohol Swabs (Alcohol Prep) 70 % pads USE DIRECTED FOUR TIMES DAILY 100 each 11 024 Active Aspirin Low Dose 81 MG [...] with other specified complication, unspecified whether watermelon harvesting supervisor insulin use ([facility]) TEST BLOOD SUGAR FOUR TIMES DAILY 100 strip 3 025 Active Lantus SoloStar 100 UNIT/ML pen INJECT 25 UNITS SUBCUTANEOUSLY EVERY MORNING 15 mL 2 025 Active cholecalcifero l (Vitamin D-3) 25 MCG tabletIndicati ons:Vitamin D deficiency TAKE 1 TABLET BY MOUTH EVERY MORNING 90 tablet 1 025 Active PARoxetine (Paxil) 20 MG tablet TAKE 1 TABLET BY MOUTH EVERY MORNING 90 tablet 1 025 Active TRUEplus Lancets 33G miscIndication s:Type 2 diabetes mellitus with other specified complication, unspecified whether nursing home insulin use ([facility]) TEST BLOOD SUGAR FOUR TIMES DAILY 100 each 3 025 Active TRUEplus Lancets 33G miscIndication s:Type 2 diabetes mellitus with other specified complication, unspecified whether watermelon harvesting supervisor insulin use ([facility]) TEST BLOOD SUGAR FOUR TIMES DAILY 100 each 11 023 2024 Discontinued(R eorder (will not trigger notification to Pharmacy)) cholecalcifero l (Vitamin D-3) 25 MCG tabletIndicati ons:Vitamin D deficiency TAKE 1 TABLET BY MOUTH EVERY MORNING 90 tablet 1 024 2024 Discontinued PARoxetine (Paxil) 20 MG tablet TAKE 1 TABLET BY MOUTH EVERY MORNING 90 tablet 1 024 2024 Discontinued Active Problems Problem Noted [...] Encounters Date Type Department Care Team Description 2024 Refill [facility] [address] [place] [address] Name, MD Salomón Vitamin D deficiency; Type 2 diabetes mellitus with other specified complication, unspecified whether watermelon harvesting supervisor insulin use ([facility]) 06/22/2024 Refill [facility] [address] [place] [address] Name, MD Salomón 06/07/2024 Orders Only [facility] External Provider, [facility] 06/07/2024 Refill [facility] [address] [place] [address] Jess Argueta MD 06/07/2024 Refill [facility] [address] [place] [address] Name, MD Salomón Depression, unspecified depression type; Type 2 diabetes mellitus with other specified complication, unspecified whether watermelon harvesting supervisor insulin use ([facility]) from Last 3 Months Immunizations Name Administration [...] Eye Exam 1954 Alcohol/Substance Use Screening 1956 RSV Patients and Patients Aged 60 years [...] with other specified complication, unspecified whether watermelon harvesting supervisor insulin use (CMS/HCC) LIPID PANEL, STANDARD Routine 05/28/2023 9:05 AM EST Type 2 diabetes mellitus with other specified complication, unspecified whether watermelon harvesting supervisor insulin use (CMS/HCC) ALBUMIN, RANDOM URINE W/CREATININE Routine 05/28/2023 12:00 AM EST from Last 3 Months or Most Recently Relevant to Health Maintenance Results * VASC Lower Extremity Venous Insufficiency Bilateral (06/07/2024 8:39 AM EST) 06/07/2024 8:39 AM EST Narrative [facility] IMAGING - 06/08/2024 8:23 AM EST ? [facility] ?[address] ?[place] [address] ? Ultrasound Report ? Signed ? Patient: Gurmeet,Mary ?MR#: [id number] ?? 5 ? : 1945 ?Acct:[id number] ? Age/Sex: 78 / F ?ADM Date: 06/07/24 ? Loc: HO.US ? Attending Dr: Xiomy Gallegos PA-C ? Ordering Physician: Xiomy Gallegos PA-C ?? Date of Service: 06/07/24 ?? Procedure(s): US venous insuf bilat ?? Accession Number(s): [id number] ? cc: Xiomy Gallegos PA-C; Name,Salomón REECE [...] ?? Size: NA ?? Reflux: NA ? US/ venous insuf bilat ?? IMPRESSION: ?? Right: [...] DD/ 0839 ? TD/TT: 06/07/24 0955 ? Car And Yard Supervisor: ? Procedure Note Donotuseinterpreter, Image - 06/08/2024 [place] [address] Ultrasound Report Signed Patient: Dixie Levi#: [id number] 5 : 5Acct:[id number] Age/Sex: 78 / FADM Date: 06/07/24 Loc: HO.US Attending Dr: Xiomy Gallegos PA-C Ordering Physician: Xiomy Gallegos PA-C Date of Service: 06/07/24 Procedure(s): US venous insuf bilat Accession Number(s): [id number] cc: Xiomy Gallegos PA-C; Name,Salomón REECE EXAMINATION: [...] No venous insufficiency. Electronically signed by: James oJ MD 06/08/2024 08:20 AM EST RP Dictated By: James Norris MD Signed By: <Electronically signed by James Valentin MDin OV> 06/08/24819 DD/ 0839 TD/TT: 06/07/24 0955 Car And Yard Supervisor: [facility] External Provider CV VASC ULAR PROCEDURES Final Result [facility] [address] [place] [phone] * (ABNORMAL) POCT HGB A1C (09/29/2023 11:36 AM EDT) Hemoglobin A1C 8.9(A) 4.0 - 6.0 % Blood 09/29/2023 11:3 6 AM EDT Salomón Manzo MD POINT OF CARE TEST ENTER/EDIT OR DERABLES Final Result * Lipid Panel, Standard (05/28/2023 9:05 AM EST) Triglycerides 111 <150 mg/dL [facility] Comment:Desirable Triglyceri de: less than 150 mg/dLBorderline High Triglyceride 150-199 mg/dLHigh Triglyceride: 200-499 mg/dLVery High Triglyceride: greater than or equal to 5OO mg/dL Cholesterol 106 <200 mg/dL [facility] Comment:Desirable Cholestero l: less than 200 mg/dLBorderline High Cholesterol: 200-239 mg/dLHigh Cholesterol: greater than 239 mg/dL LDL Cholesterol Calculated 37 <100 mg/dL [facility] Comment:Desirable LDL: less than 100 mg/dLNear Optimal/Above Optimal LDL: 110- 129 mg/dLBorderline High LDL: 130-159 mg/dLHigh LDL: 160-189 mg/dLVery High LDL: greater than or equal to 190 mg/dL HDL Cholesterol 47 >40 mg/dL [facility] Comment:Desirable HDL: great er than 40 mg/dL Note: This HDL assay may give artificially low results in patients with liver disease. Blood Venous blood specimen / Unknown 05/28/2023 9:05 AM EST 05/28/2023 9:05 AM EST Salomón Manzo MD LAB BLOOD ORDERABLES Final Resul t Performing Organization Address [facility] Co de Phone Number [facility] [address] [place] [phone] * (ABNORMAL) Albumin, Random Urine W/Creatinine (05/28/2023 12:00 AM EST) Creatinine, Urine 34.38 mg/dL [facility] Microalbumin Urine 26.0 mg/L [facility] Microalbum Creatinine Ratio Ur 75.6(H) <30 ug/mg cr [facility] Comment:Albumin/Creatinine R atio Reference Ranges: Normal: < 30 ug/mg creatinine Microalbuminuria: 30 - 300 ug/mg creatinineClinical Albuminuria: > 300 ug/mg creatinine 05/28/2023 05/28/2023 Salomón Manzo MD LAB URINE ORDERABLES Final Resul t Performing Organization Address [facility] Co de Phone Number [facility] [address] [place] [phone] from Last 3 Months or Most Recently Relevant to Health Maintenance Insurance [facility] Care Teams Plaster Molder Relationship Specialty Start Date End Date Name, MD Salomón [address] [place] [phone] PCP - General Family Medicine 12/07/18
--- OUTSIDE RECORDS SUMMARY | 2024-08-09 15:09 | XMS_ITS | Encounter Summary ---
Author Organization [employer] Address [address] [facility] [facility] 7t [place] [address] Care Team Providers Care Asp Net Programmer Name Role Phone Name, Salomón REECE Primary Care Provider [phone] Reason for Visit * Reason Onset Date Comments Referral 01/14/2023 Encounter Details Date Type Department Care Team ([facility] st Contact Info) Description 01/14/2023 Telephone [facility] MEDICINE [address] [place], [place] [phone] Name, MD Salomón [address] [place] [address] Referral Social History Tobacco Use Types Packs/Day [...] 01/14/2023 1:57 PM EDT Pt evaluated in [facility] ED 01/10/23 for allergic reaction, hyperglycemia. Pt was recommended to continue current treatment for rash and advised to increase Lantus to 26u daily. T/C placed to pt for status check via [employer] [facility] Technician Esteban. Pt reports that itching on her face is nearly gone. Reports she is still having lots of itching in her body. Recommended that pt come to [facility] for evaluation. Pt states she will need [...] documented as of this encounter Care Teams Asp Net Programmer Relationship Specialty Start Date End Date Name, MD Salomón [address] [place] [address] PCP - General Family Medicine 12/07/18 documented as of this encounter
--- OUTSIDE RECORDS SUMMARY | 2024-08-09 15:09 | XMS_ITS | Encounter Summary ---
Author Organization [employer] Address [address] 7t [place] [address] Care Team Providers Care Community Health Advocate Name Role Phone Name, Salomón REECE Primary Care Provider [phone] Reason for Visit * Reason Comments Med Refill Encounter Details Date Type Department Care Team ([facility] st Contact Info) Description 01/30/2024 Refill [facility] [address] [place], [place] [phone] Name, MD Salomón [address] [place] [address] Social History Tobacco Use Types Packs/Day Years [...] documented as of this encounter Care Teams Community Health Advocate Relationship Specialty Start Date End Date Name, MD Salomón [address] [place] [address] PCP - General Family Medicine 12/07/18 documented as of this encounter
--- OUTSIDE RECORDS SUMMARY | 2024-08-09 15:09 | XMS_ITS | Encounter Summary ---
Author Organization [employer] Address [address] 7t [place] [address] Care Team Providers Care Travel Trailer Components Assembler Name Role Phone Name, Salomón REECE Primary Care Provider [phone] Reason for Visit * Reason Comments Med Refill Encounter Details Date Type Department Care Team ([facility] st Contact Info) Description 01/30/2024 Refill [facility]INE [address] [place], [place] [phone] Connie Najera MD [address] [place], [place] [phone] Depression, unspecified depression type Social History Tobacco [...] documented as of this encounter Care Teams Travel Trailer Components Assembler Relationship Specialty Start Date End Date Name, MD Salomón [address] [place] [address] PCP - General Family Medicine 12/07/18 documented as of this encounter
== END 2024-08-09 13:28 | disposition home or self-care (01) ==
LOC: HO.MAMMO 13:27
PROVIDERS: PCP Internal Medicine Geriatric Medicine; Visit Provider Internal Medicine Geriatric Medicine
DX: Z12.31 Encounter for screening mammogram for malignant neoplasm of breast (principal)
CPT/HCPCS: 77063; 77067

== ENCOUNTER → 2024-08-09 13:45 | Outpatient (BNV) | payer OTHER, SELFPAY | PROVIDERS: PCP Internal Medicine Geriatric Medicine; Visit Provider Internal Medicine | DX: Z12.31 Encounter for screening mammogram for malignant neoplasm of breast (principal) | CPT/HCPCS: 77063; 77067 ==

== ENCOUNTER 2024-09-20 11:08 | Outpatient (REF) | payer OTHER, SELFPAY ==
--- OUTSIDE RECORDS SUMMARY | 2024-09-20 11:57 | XMS_ITS | Encounter Summary ---
Author Organization [employer] Address [address]t [place] [address] Care Team Providers Care Supervisor Braiding Name Role Phone Name, Salomón REECE Primary Care Provider [phone] Reason for Visit * Reason Comments Med Refill Encounter Details Date Type Department Care Team ([facility] st Contact Info) Description 01/30/2024 Refill [facility] MEDICINE [address] [place], [place] [phone] Name, MD Salomón [address] [place] [address] Social History Tobacco Use Types Packs/Day Years [...] as of this encounter Plan of Treatment Upcoming Encounters Date Type Department Care Team (Late st Contact Info) Description 01/05/2025 9:30 AM EDT Office Visit [facility] MEDICINE [address] [place] [phone] NameSalomón MD [address] [place] [phone] documented as of this encounter Visit Diagnoses Not on filedocumented in this encounter Additional Health Concerns Assessment Noted Time PHQ-9 Depression Total Score: 0 09/29/19 24 11:28 AM EDT documented as of this encounter Care Teams Supervisor Braiding Relationship Specialty Start Date End Date NameSalomón MD [address] [place] [address] PCP - General Family Medicine 12/07/18 documented as of this encounter
--- OUTSIDE RECORDS SUMMARY | 2024-09-20 11:57 | XMS_ITS | Encounter Summary ---
Author Organization [employer] Address [address] 7t [place] [address] Care Team Providers Care Side Door Man Name Role Phone Name, Salomón REECE Primary Care Provider [phone] Encounter Details Date Type Department Care Team (Latest Contact Info) Description 09/20/2024 Travel Social History Tobacco Use Types Packs/Day Years [...] Description 01/05/2025 9:30 AM EDT Office Visit [facility] MED[facility]INE 230 [place] [address] Name, MD Salomón [address] [place] [address] documented as of this encounter Visit Diagnoses Not on filedocumented in this encounter Additional Health Concerns Assessment Noted Time PHQ-9 Depression Total Score: 0 09/29/19 24 11:28 AM EDT documented as of this encounter Care Teams Side Door Man Relationship Specialty Start Date End Date Name, MD Salomón [address] [place] [phone] PCP - General Family Medicine 12/07/18 documented as of this encounter
--- OUTSIDE RECORDS SUMMARY | 2024-09-20 11:57 | XMS_ITS | Encounter Summary ---
Author Organization [employer] Address [address] 7t [place] [address] Care Team Providers Care Seat Pack Inspector Name Role Phone Name, Salomón REECE Primary Care Provider [phone] Reason for Visit * Reason Comments Follow-up Encounter Details Date Type Department Care Team ([facility] st Contact Info) Description 09/20/2024 10:15 AM EDT Office Visit [facility] MEDICINE [address] [place], [place] [phone] Josie Cortés NP [address] [place] [address] Other constipation (Primary Dx); Type 2 diabetes mellitus with other specified complication, unspecified whether parts counterman insulin use ([facility]); Hypertension, unspecified type Social History Tobacco Use Types Packs/Day [...] AM EDT documented as of this encounter Last Filed Vital Signs Vital Sign Reading Time Taken Comments Blood Pressure 142/52 09/20/2024 10:42 AM EDT Pulse 62 09/20/2024 9:56 AM EDT Temperature 36.9 ??C (98.5 ??F) 09/20/2024 9:56 AM ED T Respiratory Rate 15 09/20/2024 9:56 AM EDT Oxygen Saturation 94% 09/20/2024 9:56 AM EDT Inhaled Oxygen Concentration - - Weight 65.9 kg (145 lb 3.2 oz) 09/20/2024 9:56 A M EDT Height 147.3 cm (4' 10 ) 09/20/2024 9:56 AM EDT Body Mass Index 30.35 09/20/2024 9:56 AM EDT documented in this encounter Plan of Treatment Upcoming Encounters Date Type Department Care Team (Late st Contact Info) Description 01/05/2025 9:30 AM EDT Office Visit [facility] MEDICINE [address] [place] [address] Name, MD Salomón [address] [place] [address] Scheduled Orders Name Type Priority Associated Diagnoses Orde r Schedule Basic Metabolic Panel Lab Routine Type 2 diabetes mellitus with other specified complication, unspecified whether parts counterman insulin use (CMS/[facility]) Expected: 09/20/2024 (Approximate), Expires: 09/20/2025 Albumin, Random Urine W/Creatinine Lab Routine Type 2 diabetes mellitus with other specified complication, unspecified whether mcc insulin use ([facility]) Expected: 09/20/2024 (Approximate), Expires: 09/20/2025 documented as of this encounter Procedures Procedure Name Priority Date/Time Associated Diagnosis Comments POCT URINALYSIS DIPSTICK Routine 09/20/2024 11:08 AM EDT Type 2 diabetes mellitus with other specified complication, unspecified whether parts counterman insulin use ([facility]) POCT GLYCATED HEMOGLOBIN, TOTAL Routine 09/20/2024 10:00 AM EDT Type 2 diabetes mellitus with other specified complication, unspecified whether mcc insulin use ([facility]) POCT GLUCOSE Routine 09/20/2024 9:58 AM EDT Type 2 diabetes mellitus with other specified complication, unspecified whether parts counterman insulin use ([facility]) documented in this encounter Results * (ABNORMAL) POCT Urinalysis (09/20/2024 11:08 AM EDT) Color, UA Yellow Clarity, UA Clear Glucose, UA 3+ 500+++ Comment:500mg/dL Bilirubin, UA Negative Ketones, UA Negative Spec Grav, UA 1.015 Blood, UA Positive(A) Negative, None Detected Comment:trace-intact pH, UA 6.0 Protein, UA Trace Comment:30mg/dL Urobilinogen, UA 0.2 Leukocytes, UA Negative Negative, Rare, Trace Nitrite, UA Negative Negative, None Detected Appearance, UA clear QC Media Lot # [id number] Lot# Expiration Date 83,125 Urine 09/20/2024 11:0 8 AM EDT us Josie Cortés NP POINT OF CARE TEST ENTER/EDIT O RDERABLES Final Result * (ABNORMAL) POCT HGB A1C (09/20/2024 10:00 AM EDT) Hemoglobin A1C 9.6(A) 4.0 - 6.0 % QC Media Lot # [id number] Lot# Expiration Date Blood 09/20/2024 10:0 0 AM EDT Josie Yareli MICROFILM DUPLICATING UNIT SUPERVISOR POINT OF CARE TEST ENTER/EDIT O RDERABLES Final Result * (ABNORMAL) POCT Glucose (09/20/2024 9:58 AM EDT) Glucose Blood, POC 500(A) 60 - 200 mg/dL Comment:[facility] QC Media Lot # [id number] Lot# Expiration Date 100,725 Blood Capillary blood specimen / Unknown 09/20/2024 9:58 AM EDT us Josie Cortés MICROFILM DUPLICATING UNIT SUPERVISOR POINT OF CARE TEST ENTER/EDIT O RDERABLES Final Result documented in this encounter Visit Diagnoses Diagnosis Other constipation- Primary Type 2 diabetes mellitus with other specified complication, unspecified whether mcc insulin use ([facility]) Hypertension, unspecified type documented in this encounter Additional Health Concerns Assessment Noted Time PHQ-9 Depression Total Score: 0 09/29/19 24 11:28 AM EDT documented as of this encounter Care Teams Seat Pack Inspector Relationship Specialty Start Date End Date Name, MD Salomón [address] [place] [address] PCP - General Family Medicine 12/07/18 documented as of this encounter
--- OUTSIDE RECORDS SUMMARY | 2024-09-20 11:57 | XMS_ITS | Encounter Summary ---
Author Organization [employer] Address [address] 7t [place] [address] Care Team Providers Care Polish Maker Name Role Phone Name, Salomón REECE Primary Care Provider [phone] Reason for Visit * Reason Onset Date Comments chartprep 09/17/2024 Encounter Details Date Type Department Care Team ([facility] st Contact Info) Description 09/17/2024 Telephone [facility] MED[facility]INE [address] [place] [address] Nydia Zendejas MA chartprep Social History Tobacco Use Types Packs/Day Years [...] encounter Miscellaneous Notes * Telephone Encounter - Nydia Zendejas MA - 09/17/2024 11:17 AM EDT Chart Prep Labs: done Images: done Referrals: not applicable Vaccines due: Covid, Flu, and RSV Screenings: eye exam and foot exam Overdue care gaps: SBIRT, Oral health screening, and Disability screen documented in this encounter Plan of Treatment Upcoming Encounters Date Type Department Care Team (Late st Contact Info) Description 01/05/2025 9:30 AM EDT Office Visit [facility] MEDICINE [address] [place] [address] NameSalomón MD 230 [place] [address] documented as of this encounter Visit Diagnoses Not on filedocumented in this encounter Additional Health Concerns Assessment Noted Time PHQ-9 Depression Total Score: 0 09/29/19 24 11:28 AM EDT documented as of this encounter Care Teams Polish Maker Relationship Specialty Start Date End Date NameSalomón MD [address] [place] [phone] PCP - General Family Medicine 12/07/18 documented as of this encounter
--- OUTSIDE RECORDS SUMMARY | 2024-09-20 11:57 | XMS_ITS | Encounter Summary ---
Author Organization [email or web address] Address [address] 7t [place] [address] Care Team Providers Care Hospital Attendant Name Role Phone Name, Salomón REECE Primary Care Provider [phone] Reason for Visit * Reason Comments Med Refill Encounter Details Date Type Department Care Team ([facility] st Contact Info) Description 09/19/2024 Refill [facility] [address] [place], [place] [phone] Name, MD Salomón 230 [place], [place] [phone] Type 2 diabetes mellitus with other specified complication, unspecified whether group home insulin use ([facility]) Social History Tobacco Use Types Packs/Day Years [...] Description 01/05/2025 9:30 AM EDT Office Visit [facility] MEDICINE [address] [place] [address] Name, MD Salomón [address] [place] [address] documented as of this encounter Visit Diagnoses Diagnosis Type 2 diabetes mellitus with other specified complication, unspecified whether group home insulin use ([facility]) documented in this encounter Additional Health Concerns Assessment Noted Time PHQ-9 Depression Total Score: 0 09/29/19 24 11:28 AM EDT documented as of this encounter Care Teams Hospital Attendant Relationship Specialty Start Date End Date Name, MD Salomón [address] [place] [phone] PCP - General Family Medicine 12/07/18 documented as of this encounter
--- OUTSIDE RECORDS SUMMARY | 2024-09-20 11:57 | XMS_ITS | Encounter Summary ---
Author Organization [employer] Address [address] 7t [place] [address] Care Team Providers Care Cardiovascular Rn Name Role Phone Name, Salomón REECE Primary Care Provider [phone] Reason for Visit * Reason Comments Med Refill Encounter Details Date Type Department Care Team ([facility] st Contact Info) Description 01/30/2024 Refill [facility] 230 [place], [place] [phone] Connie Najera MD [address] [place], [place] [phone] Depression, unspecified depression type Social History Tobacco [...] Description 01/05/2025 9:30 AM EDT Office Visit [facility] MED[facility]INE [address] [place] [phone] Name, MD Salomón [address] [place] [phone] documented as of this encounter Visit Diagnoses Diagnosis Depression, unspecified depression type documented in this encounter Additional Health Concerns Assessment Noted Time PHQ-9 Depression Total Score: 0 09/29/19 24 11:28 AM EDT documented as of this encounter Care Teams Cardiovascular Rn Relationship Specialty Start Date End Date NameSalomón MD [address] [place] [phone] PCP - General Family Medicine 12/07/18 documented as of this encounter
--- OUTSIDE RECORDS SUMMARY | 2024-09-20 11:57 | XMS_ITS | Clinical Summary ---
Author Organization [employer] Address [address] [place] [address] 7t [place] [address] Care Team Providers Care Dish Network Installer Name Role Phone Name, Salomón REECE Primary Care Provider [phone] Allergies Active Allergy Reactions Criticality Noted Date Comments Ibuprofen 05/24/2013 Shellfish Allergy Anaphylaxis High 01/08/2023 Medications fluticasone (Flonase) 50 MCG/ACT nasal spray Use 1 spray in each nostril once daily 021 Active UltiCare Short Pen [place] 31G X 8 MM miscIndications :Type 2 diabetes mellitus with other specified complication, unspecified whether terminal system operator insulin use ([facility]) USE DIRECTED 4 - 5 TIMES PER [...] semaglutide (Ozempic, 1 MG/DOSE,) 4 MG/3ML solution pen-injectorInd ications:Type 2 diabetes mellitus with other specified complication, unspecified whether terminal system operator insulin use ([facility]) Inject 1 mg under the skin 1 (one) time per week. 1 each 024 Active atorvastatin (Lipitor) 80 MG tablet TAKE 1 TABLET BY MOUTH AT BEDTIME 90 tablet 3 024 Active metFORMIN XR (Glucophage-XR) 500 MG 24 [...] Active Aspirin Low Dose 81 MG EC tabletIndicatio ns:Hypercholest erolemia TAKE 1 TABLET BY MOUTH EVERY MORNING 90 tablet 3 024 Active QUEtiapine (SEROquel) 25 MG tabletIndicatio ns:Depression, unspecified depression type TAKE 1 TABLET BY MOUTH AT BEDTIME 30 tablet 3 025 Active losartan (Cozaar) 50 MG tablet TAKE 1 TABLET BY MOUTH EVERY MORNING 30 tablet 3 025 Active Lantus SoloStar 100 UNIT/ML pen INJECT 25 UNITS SUBCUTANEOUSLY EVERY MORNING 15 mL 2 025 Active cholecalciferol (Vitamin D-3) 25 MCG tabletIndicatio ns:Vitamin D deficiency TAKE 1 TABLET BY MOUTH EVERY MORNING 90 tablet 1 025 Active PARoxetine (Paxil) 20 MG tablet TAKE 1 TABLET BY MOUTH EVERY MORNING 90 tablet 1 025 Active TRUEplus Lancets 33G miscIndications :Type 2 diabetes mellitus with other specified complication, unspecified whether alf insulin use ([facility]) TEST BLOOD SUGAR FOUR TIMES DAILY 100 each 3 025 Active glucose blood (FREESTYLE LITE) test stripIndication s:Type 2 diabetes mellitus with other specified complication, unspecified whether alf insulin use ([facility]) USE DIRECTED TO TEST BLOOD SUGAR FOUR TIMES DAILY 100 strip 3 025 Active docusate sodium (Colace) 100 MG capsuleIndicati ons:Other constipation Take 1 capsule (100 mg) by mouth 2 times daily. 60 capsule 2 025 2024 Active Blood Pressure kitIndications: Hypertension, unspecified type 1 Units Once per day. 1 kit 025 Active glucose blood (FREESTYLE LITE) test stripIndication s:Type 2 diabetes mellitus with other specified complication, unspecified whether terminal system operator insulin use ([facility]) TEST BLOOD SUGAR FOUR TIMES DAILY 100 strip 3 025 2024 Discontinued Active Problems Problem Noted Date [...] Encounters Date Type Department Care Team Description 09/20/2024 10:15 AM EDT Office Visit [facility] [address] [place] [address] Josie Cortés NP Other constipation (Primary Dx); Type 2 diabetes mellitus with other specified complication, unspecified whether terminal system operator insulin use ([facility]); Hypertension, unspecified type 09/20/2024 Travel 09/19/2024 Refill [facility] [address] [place] [address] NameSalomón MD Type 2 diabetes mellitus with other specified complication, unspecified whether terminal system operator insulin use ([facility]) 09/17/2024 Telephone [facility] [address] [place] [address] Nydia Zendejas MA chartprep 08/31/2024 Telephone [facility] [address] [place] [address] 139[address] Salomón Manzo MD Plan of Care 08/09/2024 Orders Only [facility] [address] [place] [address] 117[address] Salomón Manzo MD 2024 Refill [facility] [address] [place] [address] NameSalomón MD Vitamin D deficiency; Type 2 diabetes mellitus with other specified complication, unspecified whether terminal system operator insulin use ([facility]) from Last 3 Months Immunizations Name Administration [...] Mass Index 30.35 09/20/2024 9:56 AM EDT Plan of Treatment Upcoming Encounters Date Type Department Care Team (Late st Contact Info) Description 01/05/2025 9:30 AM EDT Office Visit [facility] [address] [facility] [place] [address] Name, MD Salomón [address] [place] [address] Health Maintenance Due Date Last Done Comments Eye Exam 1954 Alcohol/Substance Use Screening 1956 RSV Patients and Patients Aged 60 years or older (1 - 1-dose 75+ series) 07/27/2019 COVID-19 Vaccine ( season) 2024 07/21/2020, 06/23/2020 Influenza Vaccine (#1) 2024 , 01/30/2022, 07/09/2021, Additional history exists Diabetes: Foot Exam 02/20/2024 02/19/2023, Diabetes: Urine Protein Screening 05/28/2024 05/28/2023, 12/04/2021, 12/19/2020, Additional history exists Lipid Panel 05/28/2024 05/28/2023, 11/10, 12/19/2020, Additional history exists Depression Screening 09/28/2024 09/29/2023, 09/29/19 24 SDOH Screening 09/28/2024 09/29/2023 Diabetes: Hemoglobin A1C 12/21/2024 025, 09/29/2023, 07/01/2023, Additional history exists Tobacco Screening 09/20/2025 09/20/2024 DTaP/Tdap/Td Vaccines (3 - Td or Tdap) [...] mellitus with other specified complication, unspecified whether alf insulin use ([facility]) POCT GLYCATED HEMOGLOBIN, TOTAL Routine 09/20/2024 10:00 AM EDT Type 2 diabetes mellitus with other specified complication, unspecified whether alf insulin use ([facility]) POCT GLUCOSE Routine 09/20/2024 9:58 AM EDT Type 2 diabetes mellitus with other specified complication, unspecified whether terminal system operator insulin use ([facility]) BI MAMMOGRAM SCREENING TOMOSYNTHESIS BILATERAL Routine 08/09/2024 1:35 PM EDT LIPID PANEL, STANDARD Routine 05/28/2023 9:05 AM EST Type 2 diabetes mellitus with other specified complication, unspecified whether alf insulin use ([facility]) ALBUMIN, RANDOM URINE W/CREATININE Routine 05/28/2023 12:00 AM EST from Last 3 Months or Most Recently Relevant to Health Maintenance Results * (ABNORMAL) POCT Urinalysis (09/20/2024 11:08 [...] 83,125 Urine 09/20/2024 11:0 8 AM EDT [facility] PRODUCT TECHNICIAN POINT OF CARE TEST ENTER/EDIT O RDERABLES Final Result * (ABNORMAL) POCT HGB A1C (09/20/2024 10:00 AM EDT) Hemoglobin A1C 9.6(A) 4.0 - 6.0 % QC Media Lot # [id number] Lot# Expiration Date 11,727 Blood 09/20/2024 10:0 0 AM EDT [facility] POINT OF CARE TEST ENTER/EDIT O RDERABLES Final Result * (ABNORMAL) POCT Glucose (09/20/2024 9:58 AM EDT) Glucose Blood, POC 500(A) 60 - 200 mg/dL Comment:[facility] QC Media Lot # [id number] Lot# Expiration Date 100,725 Blood Capillary blood specimen / Unknown 09/20/2024 9:58 AM EDT Result [facility] POINT OF CARE TEST ENTER/EDIT O RDERABLES Final Result * BI Mammogram Screening Tomosynthesis Bilateral (08/09/2024 1:35 PM EDT) Anatomical Region Laterality Modality Breast Bilateral Mammography 08/09/2024 1:35 PM EDT Narrative 08/15/2024 12:00 PM EDT ? [facility] [place] ? [address] ?[place] [address] ?[phone] ? Mammography Report ? Signed ? Patient: Gurmeet,Mary ?MR#: [id number] ?? 5 ? : 1945 ?Acct:[id number] ? Age/Sex: 79 / F ?ADM Date: 03/31/25 ? Loc: HO.MAMMO ? Attending Dr: Salomón Manzo MD ? Ordering Physician: Salomón Manzo MD ?Results: 2Benign Fi ?? ndings ? Date of Service: 08/09/24 ?Follow Up: 1 Year From Orig ?? inal Mammogram ? Procedure(s): MM tomosynthesis screening BI ?? Accession Number(s): [id number] ? cc: Jovany,Salomón REECE ? EXAMINATION: ?? MM SCREENING DIGITAL BREAST TOMOSYNTHESIS, BILATERAL ? CLINICAL INFORMATION: ? Screening. Asymptomatic. ? COMPARISON: ?? Mammography: Comparison is made with available priors ? TECHNIQUE: ?? Digital breast mammography with tomosynthesis is performed in both the ?? craniocaudal and mediolateral oblique views along with computer-aided ?? detection (CAD). ? FINDINGS: ?? There are scattered areas of fibroglandular density (ACR BI-RADS breast ?? composition Category b). ?? Bilateral asymmetries are stable. ?? There are no significant masses, abnormal calcifications, or other ?? abnormalities. ? MM/MM tomosynthesis screening BI ?? IMPRESSION: ?? No mammographic evidence of malignancy. ? ASSESSMENT: ? BI-RADS BI-RADS 2 - Benign Findings ? RECOMMENDATION: ?? Routine annual mammography screening. ? 1 year F/U ? This examination should not preclude the clinical evaluation of a ?? suspicious palpable abnormality. ? This patient's information was entered into a reminder system with a ?? target due date for their next mammogram. ? Electronically signed by: ??Judit Brooks DO ??08/15/2024 11:57 AM EDT ?? RP ? Dictated By: ?Judit Brooks DO ? Signed By: ?<Electronically signed by Judit Brooks, DO in OV> ? 08/15/24 1157 ? DD/ 1335 ? TD/TT: 08/09/24 1352 ? Bodybuilder: ? Procedure Note Marco Landis - 08/15/2024 [facility] [address] [place] [address] Mammography Report Signed Patient: Mary LeviMR#: [id number] 5 : 5Acct:[id number] Age/Sex: 79 / FADM Date: 08/09/24 Loc: ALAN Attending Dr: Salomón Manzo MD Ordering Physician: Salomón Manzo MDResults: 2Benign [facility] Date of Service: 08/09/24Follow Up: 1 Year From Orig ina Mammogram Procedure(s): MM tomosynthesis screening BI Accession Number(s): [id number] cc: Salomón Manzo MD EXAMINATION: MM SCREENING DIGITAL BREAST TOMOSYNTHESIS, BILATERAL CLINICAL INFORMATION: Screening. Asymptomatic. COMPARISON: Mammography: Comparison is made with available priors TECHNIQUE: Digital breast mammography with tomosynthesis is performed in both the craniocaudal and mediolateral oblique views along with computer-aided detection (CAD). FINDINGS: There are scattered areas of fibroglandular density (ACR BI-RADS breast composition Category b). Bilateral asymmetries are stable. There are no significant masses, abnormal calcifications, or other abnormalities. MM/MM tomosynthesis screening BI IMPRESSION: No mammographic evidence of malignancy. ASSESSMENT: BI-RADS BI-RADS 2 - Benign Findings RECOMMENDATION: Routine annual mammography screening. 1 year F/U This examination should not preclude the clinical evaluation of a suspicious palpable abnormality. This patient's information was entered into a reminder system with a target due date for their next mammogram. Electronically signed by: Judit Brooks DO 08/15/2024 11:57 AM EDT Dictated By: Judit Brooks DO Signed By: <Electronically signed by Judit Brooks DO in OV> 08/15/24 1157 DD/ 1335 TD/TT: 08/09/24 1352 Bodybuilder: us Salomón Name IMG BI PROCEDURES Final Result * Lipid Panel, Standard (05/28/2023 9:05 AM EST) Triglycerides 111 <150 mg/dL [facility] Comment:Desirable Triglyceri de: less than 150 mg/dLBorderline High Triglyceride 150-199 mg/dLHigh Triglyceride: 200-499 mg/dLVery High Triglyceride: greater than or equal to 5OO mg/dL Cholesterol 106 <200 mg/dL [facility] Comment:Desirable Cholestero l: less than 200 mg/dLBorderline High Cholesterol: 200-239 mg/dLHigh Cholesterol: greater than 239 mg/dL LDL Cholesterol Calculated 37 <100 mg/dL [facility] Comment:Desirable LDL: less than 100 mg/dLNear Optimal/Above Optimal LDL: 110- 129 mg/dLBorderline High LDL: 130-159 mg/dLHigh LDL: 160-189 mg/dLVery High LDL: greater than or equal to 190 mg/dL HDL Cholesterol 47 >40 mg/dL [facility] Comment:Desirable HDL: great er than 40 mg/dL Note: This HDL assay may give artificially low results in patients with liver disease. Blood Venous blood specimen / Unknown 05/28/2023 9:05 AM EST 05/28/2023 9:05 AM EST us Salomón Manzo MD LAB BLOOD ORDERABLES Final Resul t [facility] [address] [place] [address] [phone] * (ABNORMAL) Albumin, Random Urine W/Creatinine (05/28/2023 12:00 AM EST) Creatinine, Urine 34.38 mg/dL [facility] Microalbumin Urine 26.0 mg/L H [facility] Microalbum Creatinine Ratio Ur 75.6(H) <30 ug/mg cr [facility] Comment:Albumin/Creatinine R atio Reference Ranges: Normal: < 30 ug/mg creatinine Microalbuminuria: 30 - 300 ug/mg creatinineClinical Albuminuria: > 300 ug/mg creatinine 05/28/2023 05/28/2023 us Salomón Manzo MD LAB URINE ORDERABLES Final Resul t [facility] [address] [place] [address] [phone] from Last 3 Months or Most Recently Relevant to Health Maintenance Insurance [facility] OPTIONS (HMO D-SNP) [facility] STANDARD Care Teams Dish Network Installer Relationship Specialty Start Date End Date Name, MD Salomón [address] [place] [phone] PCP - General Family Medicine 12/07/18
--- OUTSIDE RECORDS SUMMARY | 2024-09-20 11:57 | XMS_ITS | Encounter Summary ---
Author Organization [employer] Address [address] [facility] 7t [place] [address] Care Team Providers Care Top Flavor Attendant Name Role Phone Name, Salomón REECE Primary Care Provider [phone] Reason for Visit * Reason Onset Date Comments Nurse Triage 01/10/2023 Encounter Details Date Type Department Care Team ([facility] st Contact Info) Description 01/10/2023 Telephone [facility] [address] [place], [place] [phone] Name, MD Salomón [address] [place] [address] Nurse Triage Social History Tobacco Use Types [...] EDT Per chart review pt seen at [facility] [place] [facility] on 01/08/23 For allergic reaction. Instructed [...] Face Swelling (Adult) Protocol-Based Disposition: Go to ED/C Now (or to Office with PCP Approval) [...] The caller accepted this outcome Please contact [facility] with [facility] [phone] ext [phone] documented in this encounter Plan of Treatment Upcoming Encounters Date Type Department Care Team (Late st Contact Info) Description 01/05/2025 9:30 AM EDT Office Visit [facility] [address] [place] [address] Name, MD Salomón [address] [place] [address] documented as of this encounter Visit Diagnoses Not on filedocumented in this encounter Additional Health Concerns Assessment Noted Time PHQ-9 Depression Total Score: 0 09/05/19 23 3:29 PM EDT documented as of this encounter Care Teams Top Flavor Attendant Relationship Specialty Start Date End Date Name, MD Salomón [address] [place] [address]69[address] PCP - General Family Medicine 12/07/18 documented as of this encounter
--- OUTSIDE RECORDS SUMMARY | 2024-09-20 11:57 | XMS_ITS | Encounter Summary ---
Author Organization [employer] Address [address] [facility] 7t [place] [address] Care Team Providers Care Burial Needs Salesperson Name Role Phone Name, Salomón REECE Primary Care Provider [phone] Reason for Visit * Reason Onset Date Comments Referral 01/14/2023 Encounter Details Date Type Department Care Team ([facility] st Contact Info) Description 01/14/2023 Telephone [facility] [address] [place], [place] [phone] Name, MD Salomón [address] [place] [address] Referral Social History Tobacco Use Types Packs/Day [...] 01/14/2023 1:57 PM EDT Pt evaluated in [facility] 01/10/23 for allergic reaction, hyperglycemia. Pt was recommended to continue current treatment for rash and advised to increase Lantus to 26u daily. T/C placed to pt for status check via [place] [employer] Esteban. Pt reports that itching on her face is nearly gone. Reports she is still having lots of itching in her body. Recommended that pt come to [facility] for evaluation. Pt states she will need [...] Description 01/05/2025 9:30 AM EDT Office Visit [facility] [address] [place] [address] Name, MD Salomón [address] [place] [address] documented as of this encounter Visit Diagnoses Not on filedocumented in this encounter Additional Health Concerns Assessment Noted Time PHQ-9 Depression Total Score: 0 09/05/19 23 3:29 PM EDT documented as of this encounter Care Teams Burial Needs Salesperson Relationship Specialty Start Date End Date Name, MD Salomón [address] [place] [address] PCP - General Family Medicine 12/07/18 documented as of this encounter
[2024-09-20 14:14] LABS: Anion Gap 11 (12-20); Blood Urea Nitrogen 15 mg/dL (9-16); Calcium 9.3 mg/dL (8.4-10.2); Carbon Dioxide 31 mmol/L (22-29); Chloride 97 mmol/L (96-108); Estimated Glomerular Filt Rate 51; Potassium 4.7 mmol/L (3.3-5.1); Sodium 134 mmol/L (135-145)
[2024-09-20 14:15] LABS: Glucose Random 378 mg/dL (60-115)
== END 2024-09-20 11:09 | disposition home or self-care (01) ==
LOC: HO.HHCL 11:08
PROVIDERS: Visit Provider Nurse Practitioner
DX: E11.69 Type 2 diabetes mellitus with other specified complication (principal)
CPT/HCPCS: 36415; 80048

== ENCOUNTER 2024-12-06 08:20 | Outpatient (REF) | payer OTHER, SELFPAY ==
[2024-12-06 12:08] LABS: Alanine Aminotransferase 20 U/L (0-31); Albumin Level 4.3 g/dL (3.5-5.0); Alkaline Phosphatase 63 U/L (39-117); Anion Gap 14 (12-20); Aspartate Amino Transferase 19 U/L (5-31); Blood Urea Nitrogen 16 mg/dL (9-16); Calcium 9.1 mg/dL (8.4-10.2); Carbon Dioxide 30 mmol/L (22-29); Chloride 104 mmol/L (96-108); Cholesterol 121 mg/dL (<200); Estimated Glomerular Filt Rate 56; HDL Cholesterol 58 mg/dL (>40); Potassium 3.6 mmol/L (3.3-5.1); Sodium 144 mmol/L (135-145); Total Protein 7.2 g/dL (6.5-8.0); Triglycerides 102 mg/dL (<150)
[2024-12-06 12:30] LABS: Vitamin B12 293 pg/mL (200-900)
[2024-12-06 12:38] LABS: Microalbum/Creatinine Ratio Ur 127.7 ug/mg cr (<30)
== END 2024-12-06 08:21 | disposition home or self-care (01) ==
LOC: HO.HHCL 08:20
PROVIDERS: Nurse Practitioner; PCP Internal Medicine Geriatric Medicine; Visit Provider Internal Medicine Geriatric Medicine
DX: E11.65 Type 2 diabetes mellitus with hyperglycemia (principal); I10 Essential (primary) hypertension; E11.69 Type 2 diabetes mellitus with other specified complication; Z79.4 Long term (current) use of insulin
CPT/HCPCS: 36415; 80048; 80061; 80076; 82043; 82570; 82607

== ENCOUNTER 2025-01-05 09:36 | Outpatient (REF) | payer OTHER, SELFPAY | END 2025-01-05 09:37 | disposition home or self-care (01) | LOC: HO.HHCL 09:36 | PROVIDERS: PCP Internal Medicine Geriatric Medicine; Visit Provider Internal Medicine Geriatric Medicine | DX: R41.3 Other amnesia (principal) | CPT/HCPCS: 36415; 84443; 86592 ==

== ENCOUNTER 2025-04-01 07:13 | Outpatient (REF) | payer OTHER, SELFPAY ==
--- NOTE | ~2025-04-01 | CT_ITS ---
EXAMINATION: CT HEAD WITHOUT IV CONTRAST HISTORY: Progressive memory problems, orientation problems, personality problems. TECHNIQUE: Unenhanced helical CT of the head was performed per standard departmental protocol. Coronal and sagittal reformats of the head were also evaluated. One or more of the following techniques was used for dose reduction: Automated exposure control, adjustment of the mA and/or kV according to patient size, use of iterative reconstruction technique. DLP: 715 mGy-cm COMPARISON: Comparison is made with the prior examination dated 12/21/2023. FINDINGS: BRAIN: There is mild prominence of the ventricular system and cortical sulci, consistent with atrophy. Scattered periventricular and subcortical white matter hypodensities are noted which are nonspecific, but often seen in the setting of small vessel ischemic disease. There is no mass effect or midline shift. No intra- or extra-axial fluid collections are identified. SINUSES: The visualized paranasal sinuses are clear. The mastoid air cells and middle ear cavities are well pneumatized. ORBITS: The visualized orbits are unremarkable. BONES/SOFT TISSUES: The extracranial soft tissues are unremarkable. The calvarium is intact. No suspicious lytic or sclerotic lesions. CT/CT head/brain wo IV con IMPRESSION: No acute intracranial abnormality. Electronically signed by: Rashad Guerrero MD 04/01/2025 08:09 AM [facility]
--- OUTSIDE RECORDS SUMMARY | 2025-04-01 07:17 | XMS_ITS | Encounter Summary ---
Author Organization [employer] Address [address] [facility] 7t [place] [address] Care Team Providers Care Head Of Drama Name Role Phone Name, Salomón REECE Primary Care Provider [phone] Belinda Jacques PharmD Unavailable [phone] Reason for Visit * Reason Comments Med Refill Encounter Details Date Type Department Care Team ([facility] Contact Info) Description 01/30/2024 Refill [facility] [address] [place] [address] Name, MD Salomón 230 [place] [address] Social History Tobacco Use Types Packs/Day Years [...] Care Team (Late st Contact Info) Description 04/04/2025 11:30 AM EST Medication Management [address] [address] Belinda Jacques PharmD [address] [place] [address] 04/12/2025 1:45 PM EST Telemedicine [address] [address] Name, MD Salomón [address] [place] [address] documented as of this encounter Visit Diagnoses Not on filedocumented in this encounter Additional Health Concerns Assessment Noted Time PHQ-9 Depression Total Score: 0 09/29/19 11:28 AM EDT documented as of this encounter Care Teams Head Of Drama Relationship Specialty Start Date End Date Name, MD Salomón [address] [place] [address] PCP - General Family Medicine 12/07/18 Belinda Jacques PharmD [address] [place] [address] Pharmacist Internal Medicine 10/26/24 documented as of this encounter
--- OUTSIDE RECORDS SUMMARY | 2025-04-01 07:17 | XMS_ITS | Encounter Summary ---
Author Organization [employer] Address 75 [facility] 7t [place] [address] Care Team Providers Care Professor Of Radiology Name Role Phone Name, Salomón REECE Primary Care Provider [phone] Belinda Jacques PharmD Unavailable Reason for Visit * Reason Onset Date Comments Nurse Triage 01/10/2023 Encounter Details Date Type Department Care Team ([facility] st Contact Info) Description 01/10/2023 Telephone [facility] 230 [place], [place] [phone] Name, MD Salomón [address] [place] [address] Nurse Triage Social History Tobacco Use Types [...] EDT Per chart review pt seen at [facility] on 01/08/23 For allergic reaction. Instructed [...] The caller accepted this outcome Please contact [facility] with [facility] [phone] documented in this encounter Plan of Treatment Upcoming Encounters Date Type Department Care Team (Late st Contact Info) Description 04/04/2025 11:30 AM EST Medication Management [facility] [address] [place] [address] Belinda Jacques, PharmD [address] [place] [address] 04/12/2025 1:45 PM EST Telemedicine [facility] [address] [place] [address] Name, MD Salomón [address] [place] [address] documented as of this encounter Visit Diagnoses Not on filedocumented in this encounter Additional Health Concerns Assessment Noted Time PHQ-9 Depression Total Score: 0 09/05/19 23 3:29 PM EDT documented as of this encounter Care Teams Professor Of Radiology Relationship Specialty Start Date End Date Name, MD Salomón [address] [place] [address] PCP - General Family Medicine 12/07/18 Belinda Jacques PharmD [address] [place] [address] Pharmacist Internal Medicine 10/26/24 documented as of this encounter
--- OUTSIDE RECORDS SUMMARY | 2025-04-01 07:17 | XMS_ITS | Encounter Summary ---
Author Organization [employer] Address [address] [facility] 7t [place] [address] Care Team Providers Care Objective C Developer Name Role Phone Name, Salomón REECE Primary Care Provider [phone] Belinda Jacques PharmD Unavailable [phone] Reason for Visit * Reason Comments Med Refill Encounter Details Date Type Department Care Team ([facility] st Contact Info) Description 01/30/2024 Refill [facility] [address] [place] [address] Connie Najera MD [address] [place] [address] Depression, unspecified depression type Social History Tobacco [...] Description 04/04/2025 11:30 AM EST Medication Management [address] [address] Belinda Jacques PharmD [address] [place] [address] 04/12/2025 1:45 PM EST Telemedicine [address] [address] Name, MD Salomón [address] [place] [address] documented as of this encounter Visit Diagnoses Diagnosis Depression, unspecified depression type documented in this encounter Additional Health Concerns Assessment Noted Time PHQ-9 Depression Total Score: 0 09/29/19 11:28 AM EDT documented as of this encounter Care Teams Objective C Developer Relationship Specialty Start Date End Date Name, MD Salomón [address] [place] [phone] PCP - General Family Medicine 12/07/18 Belinda Jacques PharmD [address] [place] [phone] Pharmacist Internal Medicine 10/26/24 documented as of this encounter
--- OUTSIDE RECORDS SUMMARY | 2025-04-01 07:17 | XMS_ITS | Clinical Summary ---
Author Organization [employer] Address [address] [facility] 7t [place] [address] Care Team Providers Care Stitch Bonding Machine Tender Helper Name Role Phone Name, Salomón REECE Primary Care Provider [phone] Belinda Jacques PharmD Unavailable [phone] Allergies Active Allergy Reactions Criticality Noted Date Comments Ibuprofen 05/24/2013 Shellfish Allergy Anaphylaxis High 01/08/2023 Medications Aspirin Low Dose 81 MG EC tabletIndication s:Hypercholester olemia TAKE 1 TABLET BY MOUTH EVERY MORNING 90 tablet 3 04/22/20 24 Active Blood Pressure kitIndications:H ypertension, unspecified type 1 Units Once per day. 1 kit 09/21/19 25 Active atorvastatin (Lipitor) 80 MG tablet TAKE 1 TABLET BY MOUTH AT BEDTIME 90 tablet 3 10/27/19 25 Active metFORMIN XR (Glucophage-XR) 500 MG 24 hr tablet TAKE 2 TABLETS BY MOUTH ONCE DAILY IN THE MORNING 180 tablet 3 10/27/19 25 Active glucose 4 g chewable tablet Chew 4 tablets (16 g) if needed for low blood sugar. (<70 mg/dL). Recheck BG after 15 mins and repeat treatment if needed. 20 tablet 5 10/27/19 25 026 Active TRUEplus Lancets 33G misc TEST BLOOD SUGAR TWO TIMES DAILY DIRECTED 100 each 10/27/19 25 Active glucose blood (FREESTYLE LITE) test strip TEST BLOOD SUGAR TWO TIMES DAILY DIRECTED 50 strip 10/27/19 25 Active Blood Glucose Monitoring Suppl (FreeStyle Lite) device Inject 1 each under the skin 2 times daily. TEST BLOOD SUGAR TWO TIMES DAILY DIRECTED 1 each 10/27/19 25 Active Alcohol Swabs (Alcohol Prep) 70 % pads Use 3x daily before BG testing & insulin injection 100 each 10/27/19 25 Active insulin pen needle 32G x 4 mm misc Use to inject insulin 1 times daily 100 each 10/27/19 25 Active amLODIPine (Norvasc) 10 MG tablet TAKE 1 TABLET BY MOUTH AT BEDTIME 90 tablet 3 11/25/19 25 Active PARoxetine (Paxil) 20 MG tablet TAKE 1 TABLET BY MOUTH EVERY MORNING 90 tablet 1 01/26/20 25 Active cholecalciferol (Vitamin D-3) 25 MCG tabletIndication s:Vitamin D deficiency TAKE 1 TABLET BY MOUTH EVERY MORNING 90 tablet 1 01/26/20 25 Active losartan (Cozaar) 50 MG tablet TAKE 1 TABLET BY MOUTH EVERY MORNING 30 tablet 3 01/28/20 25 Active QUEtiapine (SEROquel) 25 MG tabletIndication s:Depression, unspecified depression type TAKE 1 TABLET BY MOUTH AT BEDTIME 30 tablet 3 01/28/20 25 Active Semaglutide, 2 MG/DOSE, (Ozempic, 2 MG/DOSE,) 8 MG/3ML solution pen-injectorIndi cations:Type 2 diabetes mellitus with hyperglycemia, with long-term current use of insulin ([facility]) Inject 0.75 mL (2 mg) under the skin 1 (one) time per week. 3 mL 02/24/20 Active insulin glargine (Lantus SoloStar) 100 UNIT/ML penIndications:T ype 2 diabetes mellitus with hyperglycemia, with long-term current use of insulin ([facility]) Inject 20 Units under the skin at bedtime. 15 mL 2 02/24/20 Active Continuous Glucose Taproom Attendant (FreeStyle Yesika 3 [place]) deviceIndication s:Type 2 diabetes mellitus with hyperglycemia, with long-term current use of insulin ([facility]) 1 each Once per day. Use as directed for CGM 1 each 02/24/20 Active Continuous Glucose Sensor (FreeStyle Yesika 3 Plus Sensor) miscIndications: Type 2 diabetes mellitus with hyperglycemia, with long-term current use of insulin ([facility]) Apply 1 every 15 days as directed for CGM 2 each 02/24/20 Active glucose blood (FreeStyle Precision Albaro Test) test stripIndications :Type 2 diabetes mellitus with hyperglycemia, with long-term current use of insulin ([facility]) Use to test blood sugar 3 times daily in case of CGM failure or extremes of BG 50 each 11 02/24/20 Active docusate sodium (Colace) 100 MG capsuleIndicatio ns:Other constipation TAKE 1 CAPSULE BY MOUTH TWICE DAILY 60 capsule 2 03/31/20 25 Active docusate sodium (Colace) 100 MG capsuleIndicatio ns:Other constipation TAKE 1 CAPSULE BY MOUTH TWICE DAILY 60 capsule 2 12/31/19 25 025 Discontinued Active Problems Problem Noted Date Diagnosed [...] pedis 10/23/2017 Diabetes 10/23/2017 Assessment & Plan (12/11/2024 10:12 PM EDT): -diabetes is uncontrolled with A1c of 9.6% and glucose over 500 mg/dL today -POC UA negative for ketones -proper dosing of lantus 25 U nightly is reviewed with both patient and daughter -metabolic labs ordered today -foot exam: completed today -low carb, low sugar diet and daily physical activity advised -follow-up 1 month with [facility] pharmacist Assessment & Plan (01/03/2023 10:22 PM EDT): [...] exam. Severe major depression with psychotic features ([facility]) 05/08/2017 Acquired trigger finger 09/03/2011 Hypercholesterolemia 08/01/2011 Hypertension 08/01/2011 Assessment & Plan (12/11/2024 10:19 PM EDT): -BP stable based on JNC8 guidelines of <150/90 mmHg for patients over age 60 -daily med compliance advised -metabolic labs ordered -BP kit ordered for home monitoring -ED precautions reviewed Assessment & Plan (01/03/2023 10:16 PM EDT): [...] Encounters Date Type Department Care Team Description 03/31/2025 Refill [facility]INE [address] [place] [address] NameSalomón MD Other constipation 03/07/2025 2:30 PM EDT Clinical Support [address] [address] Virgie Kaiser, RN Type 2 diabetes mellitus with hyperglycemia, with long-term current use of insulin ([facility]) 03/07/2025 Telephone [facility] MED[facility]INE [address] [place] [address] Salomón Manzo MD Med Refill 03/07/2025 Travel 03/03/2025 Telephone [facility] MED[facility]INE [address] [place] [address] Génesis Thao, RN 02/23/2025 Telephone [facility] MED[facility]INE [address] [place] [address] Belinda Jacques, PharmD Prior Authorization (Yesika 3 CGM) 02/23/2025 Travel 01/27/2025 Refill [facility]INE [address] [place] [address] Salomón Manzo MD Depression, unspecified depression type 01/24/2025 Travel 01/24/2025 Refill [facility] [address] [place] [address] Salomón Manzo MD Vitamin D deficiency 01/05/2025 9:30 AM EDT Office Visit [facility] [address] [place] [address] Salomón Manzo MD Type 2 diabetes mellitus with hyperglycemia, with long-term current use of insulin ([facility]) (Primary Dx); Memory problem; Decreased hearing, unspecified laterality 01/05/2025 Travel 01/04/2025 Telephone [facility] [address] [place] [address] Salomón Manzo MD chart prep 12/30/2024 Refill [facility] [address] [place], [place] [phone] Josie Cortés, JYOTHI Other constipation from Last 3 Months Immunizations Immunization Administration Dates Next Due Influenza High-dose Quadriva lent Preservative Free 02/19/2023,01/30/2022,03/15/2020 Influenza Injectable Quadriv alant Preservative Free IIV4 MDCK 07/09/2021 Influenza, High Dose Seasona l, Preservative Free 02/23/2025,01/25/2019,03/05/2018,04/30 Influenza, Split (incl. katya fied surface antigen) 02/10/2013,01/29/2012 Moderna Covid-19 Vaccine 12+ 07/21/2020,06/23/19 21 Pneumococcal Conjugate PCV 13 03/15/2020 Pneumococcal Conjugate PCV 20 11/29/2024 Pneumococcal Polysaccharide PPSV23 03/13/2012 RSV Bivalent 03/07/2025 Tdap 02/19/2023,03/13/2012 Zoster, Recombinant 09/18/2021,07/09/2021 Zoster, live 05/08/2017 Social History Tobacco Use Types Packs/Day Years Used Date Smoking Tobacco: Never Passive Smoke Exposure: Never Smokeless Tobacco: Never Tobacco Cessation:Counseling Given: Not Answered Alcohol Use Standard Drinks/Week Comments Never 0 (1 standard drink = 0.6 oz pur e alcohol) Depression Answer Date Recorded Patient Health Questionnaire-9 Score 2 01/05/2025 Patient Health Questionnaire-9 Score 2 01/05/2025 Last PHQ-9: Questionnaire Data Not on file 0 01/05/2025 Housing Stability Answer Date Recorded What is [...] Answer Date Recorded Patient Health Questionnaire-2 Score 2 01/05/2025 Comments Unknown Sex and Gender Information Value Date Recorded Sex Assigned at Female 03/11/2022 10:16 AM EDT Legal Sex Female 10:16 AM EDT Gender Identity Female 03/11/2022 10:16 AM EDT Sexual Orientation Choose not to disclose 2021 10:16 AM EDT Last Filed Vital Signs Vital Sign Reading Time Taken Comments Blood Pressure 158/54 03/07/2025 2:49 PM EDT Pulse 60 03/07/2025 2:49 PM EDT Temperature 37.1 C (98.7 F) 03/07/2025 2:49 PM EDT Respiratory Rate 12 01/05/2025 9:08 AM EDT Oxygen Saturation 100% 03/07/2025 2:49 PM EDT Inhaled Oxygen Concentration - - Weight 64 kg (141 lb 3.2 oz) 03/07/2025 2:49 PM EDT Height 147.3 cm (4' 10 ) 01/05/2025 9:08 AM EDT Body Mass Index 29.51 01/05/2025 9:08 AM EDT Plan of Treatment Upcoming Encounters Date Type Department Care Team (Late st Contact Info) Description 04/04/2025 11:30 AM EST Medication Management [facility] MEDICINE [address] [place] [address] Belinda Jacques, PharmD [address] [place] [address] 04/12/2025 1:45 PM EST Telemedicine [facility] MEDICINE [address] [place] [address] Name, MD Salomón [address] [place] [address] Health Maintenance Due Date Last Done Comments SDOH Screening 09/28/2024 09/29/2023 COVID-19 Vaccine (2024- season) 2025 07/21/2020, 06/23/2020 Diabetes: Hemoglobin A1C 04/07/2025 025, 09/20/2024, 09/29/2023, Additional history exists Diabetes: Foot Exam 09/20/2025 09/20/2024, 09/20/2024, 09/20/2024, Additional history exists Diabetes: Urine Protein Screening 12/06/2025 12/06/2024, 05/28/2023, 12/04/2021, Additional history exists Lipid Panel 12/06/2025 12/06/2024, 05/12, 12/04/2021, Additional history exists Alcohol/Substance Use Screening 01/05/2026 01/05/2025 Depression Screening 01/05/2026 01/05/2025, 01/06/20 Tobacco Screening 01/05/2026 01/05/2025 Eye Exam 12/20/2026 12/20/2024 DTaP/Tdap/Td Vaccines (3 - Td or Tdap) 02/19/2033 02/19/2023, 03/13/2012 Zoster Vaccines Completed 09/18/2021, 06/13, 05/08/2017 Pneumococcal Vaccine: 50+ Years Completed 11/29/2024, 03/15/2020, 03/13/2012 Influenza Vaccine Completed 02/23/2025, , 01/30/2022, Additional history exists RSV Patients and Patients Aged 60 years or older Completed 03/07/2025 HIB Vaccines Aged Out No longer eligi [...] patient's age to complete this topic Meningococcal B Vaccine Aged Out No l onger eligible based on patient's age to complete [...] Procedure Name Priority Date/Time Associated Diagnosis Comments TSH W/REFLEX TO FT4 Routine 01/05/2025 9 :50 AM EDT Memory problem POCT GLYCATED HEMOGLOBIN, TOTAL Routine 01/05/2025 9:11 AM EDT Type 2 diabetes mellitus with hyperglycemia, with long-term current use of insulin ([facility]) POCT GLUCOSE Routine 01/05/2025 9:11 AM EDT Type 2 diabetes mellitus with hyperglycemia, with long-term current use of insulin ([facility]) RPR (MONITOR) W/REFL TITER Routine 01/05/2025 9:00 AM EDT Memory problem HM DIABETES EYE EXAM Routine 12/20/2024 ALBUMIN, RANDOM URINE W/CREATININE Routine 12/06/2024 8:25 AM EDT Type 2 diabetes mellitus with other specified complication, unspecified whether nursing home insulin use ([facility]) LIPID PANEL, STANDARD Routine 12/06/2024 8:25 AM EDT from Last 3 Months or Most Recently Relevant to Health Maintenance Results * TSH W/Reflex to FT4 (01/05/2025 9:50 AM EDT) TSH reflex Free T4 2.17 0.32 - 4.0 uIU/mL [facility] Blood Venous blood specimen / Unknown 01/05/2025 9:50 AM EDT 01/05/2025 11:23 AM EDT us Salomón Manzo MD LAB BLOOD ORDERABLES Final Resul t [facility] [address] [place] [address] [phone] * (ABNORMAL) POCT HGB A1C (01/05/2025 9:11 AM EDT) Hemoglobin A1C 10.9(A) 4.0 - 5.7 % QC Media Lot # [id number] Lot# Expiration Date Blood 01/05/2025 9:11 AM EDT us Salomón Manzo MD POINT OF CARE TEST ENTER/EDIT OR DERABLES Final Result * POCT Glucose (01/05/2025 9:11 AM EDT) Glucose Blood, POC 144 60 - 200 mg/dL QC Media Lot # [id number] Lot# Expiration Date Blood Capillary blood specimen / Unknown 01/05/2025 9:11 AM EDT us Salomón Manzo MD POINT OF CARE TEST ENTER/EDIT OR DERABLES Final Result * RPR (Monitor) with Reflex to??Titer (01/05/2025 9:00 AM EDT) RPR (Monitor) w/Refl Titer NON-REACTI VE NON-REACT MARCUS [facility] Comment:THIS TEST WAS PERFOR MED AT:[address] [place] [id number] CEE MD Rapid Plasma Reagin Ab Titer TNP [facility] Blood Venous blood specimen / Unknown 01/05/2025 9:00 AM EDT 01/05/2025 11:02 AM EDT us Salomón Manzo MD LAB BLOOD ORDERABLES Final Resul t Performing Organization Address City/[facility]/ZIP Co de Phone Number [facility] [address] [place] [phone] * Diabetes Eye Exam (12/20/2024) Eye Exam Normal Normal 12/20/2024 us Salomón Manzo MD HEALTH MAINTENANCE Final Result * (ABNORMAL) Albumin, Random Urine W/Creatinine (12/06/2024 8:25 AM EDT) Creatinine, Urine 50.11 mg/dL [facility] Microalbumin Urine 64.0 mg/L [facility] Microalbum Creatinine Ratio Ur 127.7(H) <30 ug/mg cr [facility] Comment:Albumin/Creatinine R atio Reference Ranges: Normal: < 30 ug/mg creatinine Microalbuminuria: 30 - 300 ug/mg creatinineClinical Albuminuria: > 300 ug/mg creatinine Urine (Urine, Random) 12/06/2024 8:25 AM EDT 12/06/2024 11:17 AM EDT Josie Cortés NP LAB URINE ORDERABLES Final Resu lt Performing Organization Address City/[facility]/ZIP Co de Phone Number [facility] [address] [place], [place] [phone] * Lipid Panel, Standard (12/06/2024 8:25 AM EDT) Triglycerides 102 <150 mg/dL [facility] Comment:Desirable Triglyceri de: less than 150 mg/dLBorderline High Triglyceride 150-199 mg/dLHigh Triglyceride: 200-499 mg/dLVery High Triglyceride: greater than or equal to 5OO mg/dL Cholesterol 121 <200 mg/dL [facility] Comment:Desirable Cholestero l: less than 200 mg/dLBorderline High Cholesterol: 200-239 mg/dLHigh Cholesterol: greater than 239 mg/dL LDL Cholesterol Calculated 43 <100 mg/dL [facility] Comment:Desirable LDL: less than 100 mg/dLNear Optimal/Above Optimal LDL: 110- 129 mg/dLBorderline High LDL: 130-159 mg/dLHigh LDL: 160-189 mg/dLVery High LDL: greater than or equal to 190 mg/dL HDL Cholesterol 58 >40 mg/dL [facility] Comment:Desirable HDL: great er than 40 mg/dL Note: This HDL assay may give artificially low results in patients with liver disease. 12/06/2024 8:25 AM EDT 12/06/2024 11:33 AM EDT us Salomón Manzo MD LAB BLOOD ORDERABLES Final Resul t [facility] [address] [place] [address] [phone] from Last 3 Months or Most Recently Relevant to Health Maintenance Insurance [facility] [employer] (HMO D-SNP) LAZARO CARATGENA [id number] [facility] STANDARD Care Teams Stitch Bonding Machine Tender Helper Relationship Specialty Start Date End Date Name, MD Salomón [address] [place], [place] PCP - General Family Medicine 12/07/18 Belinda Jacques PharmD [address] [place], [place] Pharmacist Internal Medicine 10/26/24
--- OUTSIDE RECORDS SUMMARY | 2025-04-01 07:17 | XMS_ITS | Encounter Summary ---
Author Organization [employer] Address [address] [place] [address] [address]t [place] [address] Care Team Providers Care Principal Gifts Officer Name Role Phone Name, Salomón REECE Primary Care Provider [phone] Belinda Jacques PharmD Unavailable [phone] Reason for Visit * Reason Onset Date Comments Referral 01/14/2023 Encounter Details Date Type Department Care Team ([facility] st Contact Info) Description 01/14/2023 Telephone [facility] MEDICINE [address] [place], [place] [phone] Name, MD Salomón [address] [place] [address] Referral Social History Tobacco Use Types Packs/Day [...] PM EDT Pt evaluated in [facility] 01/10/23 for allergic reaction, hyperglycemia. Pt was recommended to continue current treatment for rash and advised to increase Lantus to 26u daily. T/C placed to pt for status check via [employer] Esteban. Pt reports that itching on her face is nearly gone. Reports she is still having lots of itching in her body. Recommended that pt come to [facility] for evaluation. Pt states she will [...] Description 04/04/2025 11:30 AM EST Medication Management [address] [address] HeladioiaBelinda, PharmD [address] [place] [address] 04/12/2025 1:45 PM EST Telemedicine [facility] MEDICINE [address] [place] [phone] Name, MD Salomón [address] [place] [address] documented as of this encounter Visit Diagnoses Not on filedocumented in this encounter Additional Health Concerns Assessment Noted Time PHQ-9 Depression Total Score: 0 09/05/19 3:29 PM EDT documented as of this encounter Care Teams Principal Gifts Officer Relationship Specialty Start Date End Date Name, MD Salomón [address] [place] [address] PCP - General Family Medicine 12/07/18 Belinda Jacques PharmD [address] [place] [address] Pharmacist Internal Medicine 10/26/24 documented as of this encounter
--- OUTSIDE RECORDS SUMMARY | 2025-04-01 07:17 | XMS_ITS | Encounter Summary ---
Author Organization [employer] Address [address] [facility] 7t [place] [address] Care Team Providers Care Senior Treasury Analyst Name Role Phone Name, Salomón REECE Primary Care Provider [phone] Belinda Jacques PharmD Unavailable [phone] Reason for Visit * Reason Comments Med Refill Encounter Details Date Type Department Care Team ([facility] Contact Info) Description 03/31/2025 Refill [facility] MEDICINE [address] [place] [address] Name, MD Salomón [address] [place] [address] Other constipation Social History Tobacco Use Types Packs/Day Years [...] Description 04/04/2025 11:30 AM EST Medication Management [address] [address] Belinda Jacques PharmD [address] [place] [phone] 04/12/2025 1:45 PM EST Telemedicine [address] [address] Name, MD Salomón [address] [place] [phone] documented as of this encounter Visit Diagnoses Diagnosis Other constipation documented in this encounter Additional Health Concerns Assessment Noted Time PHQ-9 Depression Total Score: 2 01/06/20 10:08 AM EDT documented as of this encounter Care Teams Senior Treasury Analyst Relationship Specialty Start Date End Date Name, MD Salomón [address] [place] [address] PCP - General Family Medicine 12/07/18 Belinda Jacques PharmD [address] [place] [address] Pharmacist Internal Medicine 10/26/24 documented as of this encounter
== END 2025-04-01 07:14 | disposition home or self-care (01) ==
LOC: HO.CT 07:13
PROVIDERS: PCP Internal Medicine Geriatric Medicine; Visit Provider Internal Medicine Geriatric Medicine
DX: R41.3 Other amnesia (principal)
CPT/HCPCS: 70450

== ENCOUNTER → 2025-04-01 07:15 | Outpatient (BNV) | payer OTHER, SELFPAY | PROVIDERS: PCP Internal Medicine Geriatric Medicine; Visit Provider Radiology Diagnostic Radiology | DX: R41.3 Other amnesia (principal) | CPT/HCPCS: 70450 ==